=== PATIENT | male | born 1975 | race Caucasian/White ===

== ENCOUNTER 2016-10-23 11:24 | Emergency (ER) | payer OTHER ==
[2016-10-23 11:38] VITALS: BP 148/82; PULSE 91; RESP 16; TEMP 97.5
--- NOTE | 2016-10-23 12:04 | XR ---
EXAMINATION TYPE: XR ankle complete RT DATE OF EXAM: 10/23/2016 12:00 PM CLINICAL HISTORY: Right ankle pain after injury. TECHNIQUE: Frontal, lateral and oblique images of the right ankle are obtained. COMPARISON: None. FINDINGS: There is no acute fracture/dislocation evident in the right ankle. There is mild spurring at medial and lateral malleolus. Some well-defined ossific fragmentation from anterior distal tibia suggests old trauma. There is some spurring at the anterior talus. There is small size inferior calca benito spur. Ankle mortise symmetry is maintained. There is soft tissue calcification posteriorly of un certain etiology may be related to old trauma. Mild diffuse soft tissue swelling is seen. IMPRESSION: There is no acute fracture or dislocation in the right ankle.
--- NOTE | 2016-10-23 12:20 | ED ---
Lower Extremity Injury HPI - General Chief Complaint: Extremity Injury, Lower Stated Complaint: ankle pain Time Seen by Provider: 10/23/16 11:41 Source: patient, RN notes reviewed Mode of arrival: ambulatory Limitations: no limitations - History of Present Illness Initial Comments: 41-year-old male presents emergency Department with chief complaint of right ankle injury. Patient injured twice last few days. Patient states initially patient should address on the wall. Second he twisted it. He states he has lateral right ankle pain. Patient has a 4 pain or any pain proximal to this. - Related Data Home Medications Medication Instructions Recorded Confirmed Lisinopril [Lisinopril] 40 mg PO DAILY 05/26/16 10/23/16 Albuterol Inhaler [Ventolin Hfa 2 puff INHALATION RT-Q6H PRN 07/30/16 10/23/16 Inhaler] Previous Rx's Medication Instructions Recorded Hydrocodone/Acetaminophen [[place] 1 tab PO Q6HR PRN #10 tab 10/23/16 5-325] Ibuprofen [Motrin] 600 mg PO Q8HR PRN #30 tab 10/23/16 Allergies Allergy/AdvReac Type Severity Reaction Status Date / Time amoxicillin Allergy Anaphylaxis Verified 10/23/16 11:52 ciprofloxacin [From Cipro] Allergy Anaphylaxis Verified 10/23/16 11:52 haloperidol Allergy Anaphylaxis Verified 10/23/16 11:52 ziprasidone Allergy Unknown Verified 10/23/16 11:52 Review of Systems ROS Statement: Those systems with pertinent positive or pertinent negative responses have been documented in the HPI. ROS Other: All systems not noted in ROS Statement are negative. Past Medical History Past Medical History: Asthma, Hypertension Additional Past Medical History / Comment(s): chronic back and neck pain History of Any Multi-Drug Resistant Organisms: None Reported Past Surgical History: Back Surgery Additional Past Surgical History / Comment(s): cervical fusion, DECOMPRESSION, TOOTH EXTRACTION Past Anesthesia/Blood Transfusion Reactions: No Reported Reaction Past Psychological History: Anxiety, Depression, PTSD Additional Psychological History / Comment(s): STATES GOING TO BEGIN INTAKE PROCESS WITH [facility], NOT CURRENTLY TAKING ANY MEDS Smoking Status: Former smoker Past Alcohol Use History: Occasional Additional Past Alcohol Use History / Comment(s): Pt stated he used alcohol to manage mental health symptoms. Past Drug Use History: None Reported Additional Drug Use History / Comment(s): Denies. General Exam Limitations: no limitations General appearance: alert, in no apparent distress Head exam: Present: atraumatic, normocephalic, normal inspection Respiratory exam: Present: normal lung sounds bilaterally. Absent: respiratory distress, wheezes, rales, rhonchi, stridor Cardiovascular Exam: Present: regular rate, normal rhythm, normal heart sounds. Absent: systolic murmur, diastolic murmur, rubs, gallop, clicks Extremities exam: Present: other (Right ankle lateral tenderness over the malleolus moderate swelling neurovascular intact no foot tenderness) Skin exam: Present: warm, dry, intact, normal color. Absent: rash Course Vital Signs 10/23/16 11:35 Temperature 97.5 F L Pulse Rate 91 Respiratory 16 Rate Blood Pressure 148/82 O2 Sat by Pulse 97 Oximetry Medical Decision Making - Medical Decision Making Patient is right ankle sprain. Patient will be discharged patient will be discharged with ibuprofen, she tablets of [place]. Return parameters discussed. Disposition Clinical Impression: Right ankle sprain Disposition: HOME SELF-CARE Condition: Stable Instructions: Ankle Sprain (ED) Additional Instructions: Please return to the Emergency Department if symptoms worsen or any other concerns. Prescriptions: Hydrocodone/Acetaminophen [[place] 5-325] 1 tab PO Q6HR PRN #10 tab PRN Reason: Pain Ibuprofen [Motrin] 600 mg PO Q8HR PRN #30 tab PRN Reason: Pain Referrals: Valery Russell MD [Primary Care Provider] - 1-2 days Time of Disposition: 12:19
== END 2016-10-23 12:31 | disposition home or self-care (01) ==
LOC: EC 11:24
DX: S93.401A Sprain of unspecified ligament of right ankle, initial encounter (principal); I10 Essential (primary) hypertension; Z88.0 Allergy status to penicillin; Z88.1 Allergy status to other antibiotic agents; Z88.8 Allergy status to other drugs, medicaments and biological substances; Z87.891 Personal history of nicotine dependence; Z79.899 Other long term (current) drug therapy; X50.1XXA Overexertion from prolonged static or awkward postures, initial encounter
CPT/HCPCS: 99283

== ENCOUNTER 2016-10-27 09:57 | Emergency (ER) | payer OTHER ==
[2016-10-27 10:03] VITALS: BP 147/79; PULSE 90; RESP 18; TEMP 98
--- NOTE | 2016-10-27 10:19 | ED ---
Lower Extremity Injury HPI - General Chief Complaint: Extremity Injury, Lower Stated Complaint: Ankle pain Time Seen by Provider: 10/27/16 10:05 Source: patient, RN notes reviewed Mode of arrival: ambulatory Limitations: no limitations - History of Present Illness Initial Comments: Patient is a 41-year-old male presents emergency room for evaluation of right ankle pain. Patient was here on 10/23/16 for the same issue. Patient states that he twisted his ankle and came here and was diagnosed with an ankle sprain. Patient states the x-ray didn't show any breaks. Patient states they didn't have any ankle splints here so he is written a prescription. Patient states he went to go get the splint but could not afford it so he didn't end up having a brace on his ankle. Patient states that he was unable to get a ride to follow- up with his primary care provider so he came here. Patient states she still having pain in his right ankle. Patient states that he ran out of his [place] and wants something more for pain. Patient denies any numbness or tingling in his toes. Patient denies calf pain. Patient states he's been keeping weight off of his ankle. Patient denies any new injuries. - Related Data Home Medications Medication Instructions Recorded Confirmed Lisinopril [Lisinopril] 40 mg PO DAILY 05/26/16 10/27/16 Previous Rx's Medication Instructions Recorded Hydrocodone/Acetaminophen [[place] 1 tab PO Q6HR PRN #10 tab 10/23/16 5-325] Ibuprofen [Motrin] 600 mg PO Q8HR PRN #30 tab 10/23/16 Allergies Allergy/AdvReac Type Severity Reaction Status Date / Time amoxicillin Allergy Anaphylaxis Verified 10/27/16 10:21 ciprofloxacin [From Cipro] Allergy Anaphylaxis Verified 10/27/16 10:21 haloperidol Allergy Anaphylaxis Verified 10/27/16 10:21 ziprasidone Allergy Unknown Verified 10/27/16 10:21 Review of Systems ROS Statement: Those systems with pertinent positive or pertinent negative responses have been documented in the HPI. ROS Other: All systems not noted in ROS Statement are negative. Past Medical History Past Medical History: Asthma, Hypertension Additional Past Medical History / Comment(s): chronic back and neck pain History of Any Multi-Drug Resistant Organisms: None Reported Past Surgical History: Back Surgery Additional Past Surgical History / Comment(s): cervical fusion, DECOMPRESSION, TOOTH EXTRACTION Past Anesthesia/Blood Transfusion Reactions: No Reported Reaction Past Psychological History: Anxiety, Depression, PTSD Additional Psychological History / Comment(s): STATES GOING TO BEGIN INTAKE PROCESS WITH [facility], NOT CURRENTLY TAKING ANY MEDS Smoking Status: Former smoker Past Alcohol Use History: Occasional Additional Past Alcohol Use History / Comment(s): Pt stated he used alcohol to manage mental health symptoms. Past Drug Use History: None Reported Additional Drug Use History / Comment(s): Denies. General Exam - General Exam Comments Initial Comments: Sitting in exam room in no acute distress. Limitations: no limitations General appearance: alert, in no apparent distress Head exam: Present: atraumatic, normocephalic, normal inspection Eye exam: Present: normal appearance ENT exam: Present: normal exam Neck exam: Present: normal inspection Respiratory exam: Present: normal lung sounds bilaterally. Absent: respiratory distress Cardiovascular Exam: Present: regular rate, normal rhythm, normal heart sounds Right Lower Leg exam: Absent: Homans' sign Ankle exam: Present: tenderness (Lateral malleolus), swelling (Lateral malleolus ) Foot/Toe exam: Absent: tenderness Neurovascular tendon exam: Absent: pulse deficit (2+ dorsal pedal and posterior tibial pulses), abnormal cap refill (Capillary refill less than 2 seconds) Back exam: Present: normal inspection Neurological exam: Present: alert, oriented X3, CN II-XII intact Psychiatric exam: Present: normal affect, normal mood Skin exam: Present: warm, dry, intact, normal color. Absent: rash Course Vital Signs 10/27/16 10:00 Temperature 98.0 F Pulse Rate 90 Respiratory 18 Rate Blood Pressure 147/79 O2 Sat by Pulse 97 Oximetry Procedures - Orthopedic Splinting/Casting Injury #1 Side: right Lower Extremity Injury Location: ankle Lower Extremity Immobilizer: Jian wrap Other Orthopedic Equipment: crutches Medical Decision Making - Medical Decision Making Patient is a 41-year-old male presents emergency room for evaluation of right ankle pain. Patient diagnosed with ankle sprain on 10/23/16. X-ray reviewed. No fractures or dislocations noted. Patient was given an Jian wrap. Patient was also written a prescription for crutches. Discussed with patient he can take ibuprofen as needed for pain that I would not be writing him for more [place]. Discussed with patient that he needs follow-up with his primary care provider for further pain medications. Return parameters discussed. Case discussed with Dr. Cunha. - Radiology Data Radiology results: report reviewed, image reviewed Disposition Clinical Impression: Right ankle sprain Disposition: HOME SELF-CARE Condition: Good Instructions: Ankle Sprain (ED) Additional Instructions: Rest, elevate and ice on and off for 10-15 minutes for the next 24-48 hours. Take ibuprofen as needed for pain. Please follow-up with process improvement specialist or primary care provider in 24-48 hours for reevaluation. If new symptoms develop or symptoms worsen, please return to the ER. Referrals: Valery Russell MD [Primary Care Provider] - 1-2 days Time of Disposition: 10:28
== END 2016-10-27 10:56 | disposition home or self-care (01) ==
LOC: EC 09:57
DX: S93.401D Sprain of unspecified ligament of right ankle, subsequent encounter (principal); I10 Essential (primary) hypertension; G89.29 Other chronic pain; Z87.891 Personal history of nicotine dependence; Z79.899 Other long term (current) drug therapy; Z88.0 Allergy status to penicillin; Z88.1 Allergy status to other antibiotic agents; Z88.8 Allergy status to other drugs, medicaments and biological substances; X50.1XXD Overexertion from prolonged static or awkward postures, subsequent encounter
CPT/HCPCS: 99283

== ENCOUNTER 2016-11-19 18:39 | Emergency (ER) | payer OTHER ==
[~2016-11-19 18:39] MED LIST: THIAMINE 100 MG TAB PO SCH
[2016-11-19] MEDS ORDERED: LORazepam 1 MG TAB PO STA (19:38)
[2016-11-19] MEDS ORDERED: LORazepam 2 MG/ML SYRINGE IV PRN ×3 (19:38)
[2016-11-19] MEDS ORDERED: THIAMINE 100 MG/ML 2 ML VIAL IM STA (19:38)
--- NOTE | 2016-11-19 19:40 | ED ---
General Adult HPI - General Source: patient, RN notes reviewed Mode of arrival: ambulatory Limitations: no limitations <Shayne Patricia - Last Filed: 11/19/16 19:44> <Rohit Lindo - Last Filed: 11/20/16 06:30> <Asim Alcala - Last Filed: 11/29/16 14:01> - General Chief complaint: Psychiatric Symptoms Stated complaint: overdose, suicidal Time Seen by Provider: 11/19/16 19:38 - History of Present Illness Initial comments: Patient 41-year-old male who presents emergency room today with a chief complaint of suicidal ideation. Patient was brought in by [facility]. Patient does admit that he is having thoughts of hurting himself. Patient denies any specific plan at this time. He does admit that he seen a therapist or counselor in the past. She states she's been admitted in the past. He denies any homicidal thoughts or plans. Patient does admit that he did take Locust earlier in the day. States he has been drinking. Does admit to being a daily drinker. 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 Patient denies any recent fever, chills, shortness of breath, chest pain, back pain, abdominal pain, nausea or vomiting, numbness or tingling, dysuria or hematuria, constipation or diarrhea, headaches or visual changes, or any other complaints. (Shayne Patricia) - Related Data Home Medications Medication Instructions Recorded Confirmed Lisinopril [Lisinopril] 40 mg PO DAILY 05/26/16 11/19/16 Allergies Allergy/AdvReac Type Severity Reaction Status Date / Time amoxicillin Allergy Anaphylaxis Verified 11/19/16 20:08 ciprofloxacin [From Cipro] Allergy Anaphylaxis Verified 11/19/16 20:08 haloperidol Allergy Anaphylaxis Verified 11/19/16 20:08 ziprasidone Allergy Unknown Verified 11/19/16 20:08 Review of Systems ROS Other: All systems not noted in ROS Statement are negative. <Shayne Patricia - Last Filed: 11/19/16 19:44> ROS Other: All systems not noted in ROS Statement are negative. <Rohit Lindo - Last Filed: 11/20/16 06:30> ROS Other: All systems not noted in ROS Statement are negative. <Asim Alcala - Last Filed: 04/30/17 14:01> ROS Statement: Those systems with pertinent positive or pertinent negative responses have been documented in the HPI. Past Medical History Past Medical History: Asthma, Hypertension Additional Past Medical History / Comment(s): chronic back and neck pain History of Any Multi-Drug Resistant Organisms: None Reported Past Surgical History: Back Surgery Additional Past Surgical History / Comment(s): cervical fusion, DECOMPRESSION, TOOTH EXTRACTION Past Anesthesia/Blood Transfusion Reactions: No Reported Reaction Past Psychological History: Anxiety, Depression, PTSD Additional Psychological History / Comment(s): STATES GOING TO BEGIN INTAKE PROCESS WITH [facility], NOT CURRENTLY TAKING ANY MEDS Smoking Status: Former smoker Past Alcohol Use History: Occasional Additional Past Alcohol Use History / Comment(s): Pt stated he used alcohol to manage mental health symptoms. Past Drug Use History: Prescription Drug Abuse Additional Drug Use History / Comment(s): Denies. <Shayne Patricia - Last Filed: 11/19/16 19:44> General Exam Limitations: no limitations <Shayne Patricia - Last Filed: 11/19/16 19:44> <Rohit Lindo - Last Filed: 11/20/16 06:30> <Asim Alcala - Last Filed: 11/29/16 14:01> - General Exam Comments Initial Comments: General: The patient is awake and alert, in no distress, and does not appear acutely ill. Eye: Pupils are equal, round and reactive to light, extra-ocular movements are intact. No nystagmus. There is normal conjunctiva bilaterally. No signs of icterus. Ears, nose, mouth and throat: There are moist mucous membranes and no oral lesions. Neck: The neck is supple, there is no tenderness or JVD. Cardiovascular: There is a regular rate and rhythm. No murmur, rub or gallop is appreciated. Respiratory: Lungs are clear to auscultation, respirations are non-labored, breath sounds are equal. No wheezes, stridor, rales, or rhonchi. Musculoskeletal: Normal ROM, no tenderness. Strength 5/5. Sensation intact. Pulses equal bilaterally 2+. Neurological: A&O x 3. CN II-XII intact, There are no obvious motor or sensory deficits. Coordination appears grossly intact. Speech is normal. Skin: Skin is warm and dry and no rashes or lesions are noted. Psychiatric: Cooperative. (Shayne Patricia) Course <Shayne Patricia - Last Filed: 11/19/16 19:44> <Rohit Lindo - Last Filed: 11/20/16 06:30> <Asim Alcala - Last Filed: 11/29/16 14:01> Vital Signs 11/19/16 11/20/16 11/20/16 18:42 05:50 07:57 Temperature 99.1 F 98.2 F Pulse Rate 120 H 96 98 Respiratory 20 18 18 Rate Blood Pressure 147/91 167/74 163/87 O2 Sat by Pulse 97 95 100 Oximetry - Reevaluation(s) Reevaluation #1: 11/19/16 19:44 Patient's labs currently pending. At this time patient cooperative. Patient will be started on CIWA scale. Labs currently pending. Case discussed and signed out physician Dr. Lindo. (Shayne Patricia) Reevaluation #2: 11/19/16 23:14 The patient did complain of right ankle pain and some numbness to the right foot he states he rolled his ankle recently. He complains of pain especially the lateral aspect. X-rays are negative the presentation is consistent with a sprain. (Rohit Lindo) Reevaluation #3: 11/20/16 02:54 The patient was evaluated by psychiatric service and disposition is pending I did fill out a clinical certification. (Rohit Lindo) Reevaluation #4: 11/20/16 06:30 The patient is pending possible transfer. His care will be endorsed to Dr. Alcala who will make the final disposition. (Rohit Lindo) Medical Decision Making - Lab Data Result diagrams: 11/19/16 20:21 11/19/16 20:21 - Radiology Data Radiology results: report reviewed (I did review the x-rays and reports no acute findings there is some evidence of soft tissue swelling of the right ankle.), image reviewed <Rohit Lindo - Last Filed: 11/20/16 06:30> - Lab Data Result diagrams: 11/19/16 20:21 11/19/16 20:21 <Asim Alcala - Last Filed: 11/29/16 14:01> - Lab Data Lab Results 11/19/16 11/19/16 11/19/16 Range/Units 20:21 20:21 20:21 WBC 5.3 (3.8-10.6) k/uL RBC 5.61 (4.30-5.90) m/uL Hgb 16.6 (13.0-17.5) gm/dL Hct 46.7 (39.0-53.0) % MCV 83.3 (80.0-100.0) fL MCH 29.6 (25.0-35.0) pg MCHC 35.6 (31.0-37.0) g/dL RDW 13.5 (11.5-15.5) % Plt Count 240 (150-450) k/uL Neutrophils % 62 % Lymphocytes % 29 % Monocytes % 7 % Eosinophils % 1 % Basophils % 0 % Neutrophils # 3.3 (1.3-7.7) k/uL Lymphocytes # 1.5 (1.0-4.8) k/uL Monocytes # 0.4 (0-1.0) k/uL Eosinophils # 0.1 (0-0.7) k/uL Basophils # 0.0 (0-0.2) k/uL Sodium 144 (137-145) mmol/L Potassium 4.4 (3.5-5.1) mmol/L Chloride 105 (98-107) mmol/L Carbon Dioxide 24 (22-30) mmol/L Anion Gap 15 mmol/L BUN 9 (9-20) mg/dL Creatinine 0.99 (0.66-1.25) mg/dL Est GFR (MDRD) Af Amer >60 (>60 ml/min/1.73 sqM) Est GFR (MDRD) Non-Af >60 (>60 ml/min/1.73 sqM) Glucose 101 H (74-99) mg/dL Calcium 9.6 (8.4-10.2) mg/dL Salicylates <1.0 mg/dL Urine Opiates Screen Not Detected (NotDetected) Ur Oxycodone Screen Not Detected (NotDetected) Urine Methadone Screen Not Detected (NotDetected) Ur Propoxyphene Screen Not Detected (NotDetected) Acetaminophen <10.0 ug/mL Ur Barbiturates Screen Not Detected (NotDetected) U Tricyclic Antidepress Not Detected (NotDetected) Ur Phencyclidine Scrn Not Detected (NotDetected) Ur Amphetamines Screen Not Detected (NotDetected) U Methamphetamines Scrn Not Detected (NotDetected) U Benzodiazepines Scrn Not Detected (NotDetected) Urine Cocaine Screen Not Detected (NotDetected) U Marijuana (THC) Screen Detected H (NotDetected) Disposition <Shayne Patricia - Last Filed: 11/19/16 19:44> <Rohit Lindo - Last Filed: 11/20/16 06:30> <Asim Alcala - Last Filed: 11/29/16 14:01> Clinical Impression: Depression, Right ankle sprain Disposition: TRANSFER TO PSYCH HOSP/UNIT Referrals: Valery Russell MD [Primary Care Provider] - 1-2 days
[2016-11-19 20:42] LABS: Basophils % (A) 0 %; CH 29.4; CHCM 35.4; Eosinophils # (A) 0.1 k/uL (0-0.7); Eosinophils % (A) 1 %; HCT 46.7 % (39.0-53.0); HDW 2.92; HGB 16.6 gm/dL (13.0-17.5); Luc # (Auto) 0.11; Luc % (Auto) 2; Lymphocytes # (A) 1.5 k/uL (1.0-4.8); Lymphocytes % (A) 29 %; MCH 29.6 pg (25.0-35.0); MCHC 35.6 g/dL (31.0-37.0); MCV 83.3 fL (80.0-100.0); Mean Platelet Volume 6.8; Monocytes # (A) 0.4 k/uL (0-1.0); Monocytes % (A) 7 %; Neutrophils # (A) 3.3 k/uL (1.3-7.7); Neutrophils % (A) 62 %; RBC 5.61 m/uL (4.30-5.90); RDW 13.5 % (11.5-15.5); WBC 5.3 k/uL (3.8-10.6); WBC (Perox) 5.37
[2016-11-19 20:43] LABS: Acetaminophen <10.0 ug/mL; Anion Gap 15 mmol/L; Blood Urea Nitrogen 9 mg/dL (9-20); Calcium 9.6 mg/dL (8.4-10.2); Carbon Dioxide 24 mmol/L (22-30); Chloride 105 mmol/L (98-107); Glucose 101 mg/dL (74-99); Non-African American GFR(MDRD) >60 (>60 ml/min/1.73 sqM); Potassium 4.4 mmol/L (3.5-5.1); Salicylate <1.0 mg/dL; Sodium 144 mmol/L (137-145)
--- NOTE | 2016-11-19 23:07 | XR ---
EXAMINATION TYPE: XR foot complete RT DATE OF EXAM: 11/19/2016 10:59 PM COMPARISON: NONE HISTORY: Pain TECHNIQUE: 3 views FINDINGS: There is a small plantar calcaneal spur. There is mild hallux valgus. Metatarsals are intac t. I see no fracture. IMPRESSION: There are some degenerative changes. No fracture seen.
--- NOTE | 2016-11-19 23:07 | XR ---
EXAMINATION TYPE: XR ankle complete RT DATE OF EXAM: 11/19/2016 10:59 PM COMPARISON: NONE HISTORY: Pain TECHNIQUE: 3 views FINDINGS: I see no fracture nor dislocation. There is spurring of the anterior malleolus. There is a plantar calcaneal spur. There is mild soft tissue swelling around the ankle joint. IMPRESSION: Soft tissue swelling. No fracture seen.
[2016-11-20] MEDS ORDERED: ONDANSETRON ODT 4 MG TAB PO STA (02:23)
[2016-11-20 05:51] VITALS: RESP 18
[2016-11-20] MEDS ORDERED: IBUPROFEN 800 MG TAB PO STA (05:56)
[2016-11-20 07:59] VITALS: BP 163/87; PULSE 98; TEMP 98.2
[2016-11-20] MEDS ORDERED: MECLIZINE 12.5 MG TAB PO STA (08:51)
[2016-11-20] MEDS ORDERED: THIAMINE 100 MG TAB PO SCH (12:00)
== END 2016-11-20 08:55 | disposition home or self-care (01) ==
LOC: EC 18:39
DX: S93.401A Sprain of unspecified ligament of right ankle, initial encounter (principal); F32.9 Major depressive disorder, single episode, unspecified; I10 Essential (primary) hypertension; Z88.1 Allergy status to other antibiotic agents; Z88.0 Allergy status to penicillin; Z88.8 Allergy status to other drugs, medicaments and biological substances; Z87.891 Personal history of nicotine dependence; X58.XXXA Exposure to other specified factors, initial encounter
CPT/HCPCS: 99285; 96372; 82075 ×2; 36415; 80048; 85025; 80306; 83520 ×2; 73610; 73630; J3411

== ENCOUNTER → 2017-01-15 | Outpatient (CLI) | payer OTHER ==
--- NOTE | 2017-01-15 08:13 | US ---
EXAMINATION TYPE: US kidneys/renal and bladder DATE OF EXAM: 01/15/2017 COMPARISON: Ultrasound 10/26/14 CLINICAL HISTORY: R31.9 HEMATURIA. Pt states microscopic hematuria EXAM MEASUREMENTS: Right Kidney: 12.0 x 5.9 x 6.8 cm Left Kidney: 12.4 x 6.2 x 5.6 cm Right Kidney: Appeared wnl Left Kidney: Appeared wnl Bladder: wnl Bilateral Jets seen: No There is no evidence for hydronephrosis at this point in time. No nephrolithiasis is seen. No lena s are identified. The urinary bladder is anechoic. IMPRESSION: 1. Normal renal ultrasound
== END | disposition home or self-care (01) ==
LOC: RADUSWWP 07:14
PROVIDERS: ATTEND Family Medicine
DX: R31.9 Hematuria, unspecified (principal)
CPT/HCPCS: 76770

== ENCOUNTER 2017-03-11 08:56 | Emergency (ER) | payer OTHER ==
[2017-03-11] MEDS ORDERED: IBUPROFEN 600 MG TAB PO STA (09:14)
--- NOTE | 2017-03-11 09:39 | ED ---
General Adult HPI - General Chief complaint: ENT Stated complaint: sore throat and left ear pain Time Seen by Provider: 03/11/17 09:06 Source: patient, RN notes reviewed Mode of arrival: ambulatory Limitations: no limitations - History of Present Illness Initial comments: Patient 41-year-old male who presents emergency room today with a chief complaint of a sore throat over the last 4 days. States that it started as typical sore throat and hurts when he swallows. He does admit that over the last days he had increased pain to the left year. Patient denies any other complaints or symptoms. Patient denies any recent fever, chills, shortness of breath, chest pain, back pain, abdominal pain, nausea or vomiting, numbness or tingling, dysuria or hematuria, constipation or diarrhea, headaches or visual changes, or any other complaints. - Related Data Home Medications Medication Instructions Recorded Confirmed Lisinopril [Lisinopril] 40 mg PO DAILY 05/26/16 03/11/17 OXcarbazepine [Trileptal] 300 mg PO BID 03/11/17 03/11/17 hydrOXYzine PAMOATE [Vistaril] 25 mg PO TID 03/11/17 03/11/17 traZODone HCL [Desyrel] 100 mg PO HS PRN 03/11/17 03/11/17 Allergies Allergy/AdvReac Type Severity Reaction Status Date / Time amoxicillin Allergy Anaphylaxis Verified 03/11/17 09:30 ciprofloxacin [From Cipro] Allergy Anaphylaxis Verified 03/11/17 09:30 haloperidol Allergy Anaphylaxis Verified 03/11/17 09:30 ziprasidone Allergy Unknown Verified 03/11/17 09:30 Review of Systems ROS Statement: Those systems with pertinent positive or pertinent negative responses have been documented in the HPI. ROS Other: All systems not noted in ROS Statement are negative. Past Medical History Past Medical History: Asthma, Hypertension Additional Past Medical History / Comment(s): chronic back and neck pain History of Any Multi-Drug Resistant Organisms: None Reported Past Surgical History: Back Surgery Additional Past Surgical History / Comment(s): cervical fusion, DECOMPRESSION, TOOTH EXTRACTION Past Anesthesia/Blood Transfusion Reactions: No Reported Reaction Past Psychological History: Anxiety, Depression, PTSD Smoking Status: Former smoker Past Alcohol Use History: Occasional Past Drug Use History: Prescription Drug Abuse General Exam - General Exam Comments Initial Comments: General: The patient is awake and alert, in no distress, and does not appear acutely ill. Eye: Pupils are equal, round and reactive to light, extra-ocular movements are intact. No nystagmus. There is normal conjunctiva bilaterally. No signs of icterus. Ears, nose, mouth and throat: There are moist mucous membranes and no oral lesions. TMs clear bilaterally. Increased redness erythema to the posterior pharynx no sign of exudate. Uvula midline. Patient swallows without any difficulty. Neck: The neck is supple, there is no tenderness or JVD. Cardiovascular: There is a regular rate and rhythm. No murmur, rub or gallop is appreciated. Respiratory: Lungs are clear to auscultation, respirations are non-labored, breath sounds are equal. No wheezes, stridor, rales, or rhonchi. Musculoskeletal: Normal ROM, no tenderness. Strength 5/5. Sensation intact. Pulses equal bilaterally 2+. Neurological: A&O x 3. CN II-XII intact, There are no obvious motor or sensory deficits. Coordination appears grossly intact. Speech is normal. Skin: Skin is warm and dry and no rashes or lesions are noted. Psychiatric: Cooperative, appropriate mood & affect, normal judgment. Limitations: no limitations Course Vital Signs 03/11/17 09:01 Temperature 97.6 F Pulse Rate 103 H Respiratory 20 Rate Blood Pressure 168/98 O2 Sat by Pulse 97 Oximetry Medical Decision Making - Medical Decision Making Patient reexamined at this time shows no signs of distress. Resting comfortably in the stretcher. Strep test negative.. Patient most likely a viral illness. Will be discharged home advised continue Tylenol/ibuprofen for pain as needed. Advised to use [id number] medications. Advised return for any other concerns. - Lab Data Lab Results 03/11/17 Range/Units 09:35 Group A Strep Rapid Negative (Negative) Disposition Clinical Impression: Acute pharyngitis Disposition: HOME SELF-CARE Condition: Good Instructions: Pharyngitis (ED) Additional Instructions: Please use medication as discussed. Please follow-up with family doctor in the next 2 days of symptoms have not improved. Please return to emergency room if the symptoms increase or worsen or for any other concerns. Referrals: Valery Russell MD [Primary Care Provider] - 1-2 days Time of Disposition: 10:32
[2017-03-11 10:51] VITALS: BP 141/74; PULSE 83; RESP 18; TEMP 98.6
== END 2017-03-11 10:51 | disposition home or self-care (01) ==
LOC: EC 08:56
DX: J02.9 Acute pharyngitis, unspecified (principal); H92.02 Otalgia, left ear; I10 Essential (primary) hypertension; F41.9 Anxiety disorder, unspecified; Z87.891 Personal history of nicotine dependence; Z79.899 Other long term (current) drug therapy; Z88.0 Allergy status to penicillin; Z88.1 Allergy status to other antibiotic agents; Z88.8 Allergy status to other drugs, medicaments and biological substances
CPT/HCPCS: 87081; 87430; 99283

== ENCOUNTER 2017-08-17 20:33 | Emergency (ER) | payer OTHER ==
[2017-08-17] MEDS ORDERED: SODIUM CHLORIDE 0.9% 1,000 ML IV ONE (20:45)
[2017-08-17 20:47] VITALS: TEMP 97.4
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
[2017-08-17 21:04] LABS: Basophils % (A) 1 %; Eosinophils # (A) 0.1 k/uL (0-0.7); Eosinophils % (A) 1 %; HCT 48.3 % (39.0-53.0); HGB 17.1 gm/dL (13.0-17.5); Lymphocytes # (A) 1.5 k/uL (1.0-4.8); Lymphocytes % (A) 31 %; MCH 29.5 pg (25.0-35.0); MCHC 35.5 g/dL (31.0-37.0); MCV 83.1 fL (80.0-100.0); Mean Platelet Volume 6.9; Monocytes # (A) 0.2 k/uL (0-1.0); Monocytes % (A) 4 %; Neutrophils % (A) 61 %; Platelet Count 286 k/uL (150-450); RBC 5.81 m/uL (4.30-5.90); RDW 13.6 % (11.5-15.5); WBC 4.9 k/uL (3.8-10.6)
[2017-08-17 21:09] LABS: ALT 43 U/L (21-72); AST 36 U/L (17-59); Albumin 5.4 g/dL (3.5-5.0); Alkaline Phosphatase 52 U/L (38-126); Anion Gap 20 mmol/L; Blood Urea Nitrogen 11 mg/dL (9-20); Calcium 10.2 mg/dL (8.4-10.2); Carbon Dioxide 20 mmol/L (22-30); Chloride 104 mmol/L (98-107); Glucose 117 mg/dL (74-99); Potassium 4.5 mmol/L (3.5-5.1); Sodium 144 mmol/L (137-145); Total Bilirubin 0.8 mg/dL (0.2-1.3); Total Protein 8.5 g/dL (6.3-8.2)
[2017-08-17 21:11] LABS: Amphetamine Screen,Urine Not Detected (NotDetected); Barbiturate Screen,Urine Not Detected (NotDetected); Benzodiazepines Screen,Urine Not Detected (NotDetected); Cocaine Screen,Urine Not Detected (NotDetected); Methadone Screen, Urine Not Detected (NotDetected); Opiate Screen,Urine Not Detected (NotDetected); Oxycodone Screen, Urine Not Detected (NotDetected); Phencyclidine Screen,Urine Not Detected (NotDetected); Tricyclic Antidepressant,Urine Not Detected (NotDetected); Urn Cannabinoid Scrn Not Detected (NotDetected)
--- NOTE | 2017-08-17 21:37 | CT ---
EXAMINATION TYPE: CT brain mahogany zhong DATE OF EXAM: 08/17/2017 COMPARISON: 08/14/2015 HISTORY: Possible fall injury. CT DLP: 1717.9 mGycm Automated exposure control for dose reduction was used. TECHNIQUE: CT scan of the head and cervical spine are performed without contrast. FINDINGS: Ventricles and sulci appear normal. There is no mass effect nor midline shift. There is n o sign of intracranial hemorrhage. The calvarium is intact. There is straightening of the cervical spine. There is a plate with screws fusing anteriorly C4-C5 C6 -C7. Posterior elements are intact. There is multilevel hypertrophic facet arthropathy. The skull bas e is intact. IMPRESSION: Negative CT scan of the brain. No change. Previous surgery. Multilevel cervical spondylosis. No fracture. No change.
[2017-08-17 21:44] VITALS: RESP 20
--- NOTE | 2017-08-17 21:44 | XR ---
EXAMINATION TYPE: XR chest 1V DATE OF EXAM: 08/17/2017 COMPARISON: 05/15/2015 HISTORY: Fall. Chest pain TECHNIQUE: Single frontal view of the chest is obtained. FINDINGS: Heart and mediastinum are normal. Lungs are clear of infiltrate. There is no sign of pleur al effusion or pneumothorax. There is some mild pleural thickening over the left lateral chest wall. IMPRESSION: Normal heart. There is new mild pleural thickening on the left lateral chest wall of unce rtain significance. No obvious rib fracture.
[2017-08-17] MEDS ORDERED: SODIUM CHLORIDE 0.9% 1,000 ML IV STA (22:00)
[2017-08-17 22:54] VITALS: BP 140/60; PULSE 99
== END 2017-08-18 00:56 | disposition home or self-care (01) ==
LOC: EC 20:33
DX: F10.129 Alcohol abuse with intoxication, unspecified (principal); J92.9 Pleural plaque without asbestos; R06.82 Tachypnea, not elsewhere classified; M54.2 Cervicalgia; I10 Essential (primary) hypertension; Z87.891 Personal history of nicotine dependence; Z79.899 Other long term (current) drug therapy; Z88.0 Allergy status to penicillin; Z88.1 Allergy status to other antibiotic agents; Z88.8 Allergy status to other drugs, medicaments and biological substances; Z98.1 Arthrodesis status; W19.XXXA Unspecified fall, initial encounter
CPT/HCPCS: 36415; 70450; 71045; 72125; 80053; 80306; 82075; 85025; 96360; 99285

== ENCOUNTER 2017-10-08 08:18 | Emergency (ER) | payer OTHER ==
[2017-10-08 08:24] VITALS: TEMP 97.6
[2017-10-08] MEDS ORDERED: HYDROcodone/APAP 10-325MG 1 EACH TAB PO ONE (08:43)
[2017-10-08] MEDS ORDERED: cloNIDine HCL 0.2 MG TAB PO STA (08:43)
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
--- NOTE | 2017-10-08 09:18 | XR ---
EXAMINATION TYPE: XR knee 4V RT DATE OF EXAM: 10/08/2017 COMPARISON: 12/30/2014 HISTORY: Pain TECHNIQUE: Four views are submitted. FINDINGS: Joint spaces are preserved. Osseous structures are intact. No acute fracture seen. There is a smal l exostosis off the proximal diaphysis of the tibia. IMPRESSION: 1. No acute fracture or dislocation. 2. Small exostosis off the proximal diaphysis of the tibia stable from x-ray of 2014..
--- NOTE | 2017-10-08 09:19 | XR ---
EXAMINATION TYPE: XR shoulder complete RT DATE OF EXAM: 10/08/2017 COMPARISON: NONE HISTORY: Pain TECHNIQUE: Three views are submitted. FINDINGS: The osseous structures are intact. There is no acute fracture or dislocation. There is severe arthro rufino of the AC joint. IMPRESSION: 1. AC joint arthropathy.
[2017-10-08 10:16] VITALS: BP 152/87; PULSE 97; RESP 20
== END 2017-10-08 10:15 | disposition home or self-care (01) ==
LOC: EC 08:18
DX: S46.911A Strain of unspecified muscle, fascia and tendon at shoulder and upper arm level, right arm, initial encounter (principal); M25.461 Effusion, right knee; S80.01XA Contusion of right knee, initial encounter; I10 Essential (primary) hypertension; Z87.891 Personal history of nicotine dependence; Z79.899 Other long term (current) drug therapy; Z88.0 Allergy status to penicillin; Z88.1 Allergy status to other antibiotic agents; Z88.8 Allergy status to other drugs, medicaments and biological substances; M12.9 Arthropathy, unspecified; V18.4XXA Pedal cycle driver injured in noncollision transport accident in traffic accident, initial encounter; Y92.410 Unspecified street and highway as the place of occurrence of the external cause; Y93.55 Activity, bike riding
CPT/HCPCS: 99284

== ENCOUNTER → 2017-11-19 | Outpatient (CLI) | payer OTHER ==
--- NOTE | 2017-11-19 10:35 | CT ---
EXAMINATION TYPE: CT chest wo con DATE OF EXAM: 11/19/2017 COMPARISON: NONE HISTORY: Follow up nodule per patient CT DLP: [address] of the chest was performed with lung and mediastinal window settings submitted. The la ck of contrast limits evaluation of the vascular, mediastinal and parenchymal structures including th e upper abdomen. LUNGS: The lungs are clear and free of infiltrate. No atelectasis. No pulmonary nodule or mass is de tected. No pleural effusion. No CT evidence of interstitial lung disease. MEDIASTINUM/YOU: Thoracic aorta is of normal caliber with limited evaluation given lack of contrast . The heart is not enlarged. No evidence for mediastinal mass. No lymph nodes greater than 1cm. UPPER ABDOMEN: No significant abnormality is seen. OTHER: No significant other abnormality. IMPRESSION: 1. No distinct abnormality appreciated.
== END ==
LOC: RADCTMAIN 10:08
PROVIDERS: ATTEND Family Medicine
DX: R91.1 Solitary pulmonary nodule (principal)
CPT/HCPCS: 71250

== ENCOUNTER 2017-12-24 13:02 | Emergency (ER) | payer OTHER ==
[2017-12-24 13:12] VITALS: BP 146/83; PULSE 129; RESP 20; TEMP 97.6
[2017-12-24] MEDS ORDERED: DIPH,PERTUS(ACELL)TETVAC-LF 0.5 ML VIAL IM ONE (13:21)
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
[2017-12-24] MEDS ORDERED: Acetaminophen-Codeine 300-30mg TAB PO STA (13:42)
--- NOTE | 2017-12-24 14:07 | XR ---
EXAMINATION TYPE: XR chest 1V portable DATE OF EXAM: 12/24/2017 COMPARISON: 08/17/2017 HISTORY: Chest pain TECHNIQUE: Single frontal view of the chest is obtained. FINDINGS: There is no focal air space opacity, pleural effusion, or pneumothorax seen. The cardia m ediastinal silhouette is enlarged. Partial visualization of cervical fusion device is seen. The osse ous structures are intact. IMPRESSION: No acute cardiopulmonary process.
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
--- NOTE | 2017-12-27 06:06 | CDI ---
Documentation Clarification OP Dear Asim Duke Please provide type of splint. Thank you, Christel Ballesteros Boarding House Manager If you have any questions, please contact [employer] at [phone] [facility]
== END 2017-12-24 14:19 | disposition home or self-care (01) ==
LOC: EC 13:02
DX: S52.121A Displaced fracture of head of right radius, initial encounter for closed fracture (principal); S80.811A Abrasion, right lower leg, initial encounter; S80.812A Abrasion, left lower leg, initial encounter; I10 Essential (primary) hypertension; Z87.891 Personal history of nicotine dependence; Z79.899 Other long term (current) drug therapy; Z88.0 Allergy status to penicillin; Z88.1 Allergy status to other antibiotic agents; Z88.8 Allergy status to other drugs, medicaments and biological substances; Z23 Encounter for immunization; V18.4XXA Pedal cycle driver injured in noncollision transport accident in traffic accident, initial encounter; Y92.480 Sidewalk as the place of occurrence of the external cause
CPT/HCPCS: 29105; 71045; 72170; 90471; 90715; 99283

== ENCOUNTER 2018-09-23 08:41 | Emergency (ER) | payer OTHER ==
[2018-09-23] MEDS ORDERED: ONDANSETRON 4 MG/2 ML VIAL IVP STA (08:58)
[2018-09-23] MEDS ORDERED: SODIUM CHLORIDE 0.9% 1,000 ML IV STA (08:58)
[2018-09-23] MEDS ORDERED: KETOROLAC 30 MG/ML 1 ML VIAL IVP STA (08:58)
--- NOTE | 2018-09-23 09:01 | ED ---
General Adult HPI - General Chief complaint: Abdominal Pain Stated complaint: L side pain Time Seen by Provider: 09/23/18 08:43 Source: patient, RN notes reviewed Mode of arrival: ambulatory Limitations: no limitations - History of Present Illness Initial comments: 43-year-old male with a past medical history of asthma, hypertension, chronic back pain presents to the emergency department for a chief complaint of left flank pain times one day. Patient states this pain started yesterday. He describes the pain as a sharp stabbing pain in the left flank that radiates to the left abdomen. Patient states he saw his primary care provider about a week ago and did have blood in his urine at that time. Patient denies noticing any gross hematuria. Patient does admit to a history of kidney stones when he was a teenager. He states he has not had kidney stones since then. He denies nausea or vomiting.Patient has no other complaints at this time including shortness of breath, chest pain, abdominal pain, nausea or vomiting, headache, or visual changes. - Related Data Home Medications Medication Instructions Recorded Confirmed Lisinopril 40 mg PO DAILY 05/26/16 09/23/18 Ibuprofen [Motrin Ib] 800 mg PO Q6H PRN 09/23/18 09/23/18 Allergies Allergy/AdvReac Type Severity Reaction Status Date / Time amoxicillin Allergy Anaphylaxis Verified 09/23/18 09:48 ciprofloxacin [From Cipro] Allergy Anaphylaxis Verified 09/23/18 09:48 haloperidol Allergy Anaphylaxis Verified 09/23/18 09:48 ziprasidone Allergy Unknown Verified 09/23/18 09:48 Review of Systems ROS Statement: Those systems with pertinent positive or pertinent negative responses have been documented in the HPI. ROS Other: All systems not noted in ROS Statement are negative. Past Medical History Past Medical History: Asthma, Hypertension Additional Past Medical History / Comment(s): chronic back and neck pain History of Any Multi-Drug Resistant Organisms: None Reported Past Surgical History: Back Surgery Additional Past Surgical History / Comment(s): cervical fusion, DECOMPRESSION, TOOTH EXTRACTION Past Anesthesia/Blood Transfusion Reactions: No Reported Reaction Past Psychological History: Anxiety, Depression, PTSD Smoking Status: Former smoker Past Alcohol Use History: None Reported Past Drug Use History: None Reported General Exam Limitations: no limitations General appearance: alert, in no apparent distress Head exam: Present: atraumatic, normocephalic, normal inspection Eye exam: Present: normal appearance, PERRL, EOMI. Absent: scleral icterus, conjunctival injection, periorbital swelling ENT exam: Present: normal exam, mucous membranes moist Neck exam: Present: normal inspection, full ROM. Absent: tenderness, meningismus, lymphadenopathy Respiratory exam: Present: normal lung sounds bilaterally. Absent: respiratory distress, wheezes, rales, rhonchi, stridor Cardiovascular Exam: Present: regular rate, normal rhythm, normal heart sounds. Absent: systolic murmur, diastolic murmur, rubs, gallop, clicks GI/Abdominal exam: Present: soft, normal bowel sounds. Absent: distended, tenderness (No tenderness noted to the abdomen), guarding, rebound, rigid Back exam: Present: CVA tenderness (L) (Mild left CVA tenderness) Neurological exam: Present: alert, oriented X3, CN II-XII intact Psychiatric exam: Present: normal affect, normal mood Skin exam: Present: diaphoretic (Patient states pain is making him feel diaphoretic) Course Vital Signs 09/23/18 08:43 Temperature 98.2 F Pulse Rate 101 H Respiratory 18 Rate Blood Pressure 188/86 O2 Sat by Pulse 99 Oximetry EKG Findings - EKG Comments: EKG Findings:: Normal sinus rhythm, ventricular rate 92, IN interval 140, QTC 405, no evidence of ST elevation or depression. Medical Decision Making - Medical Decision Making 43-year-old male presents to the emergency department for left flank pain. This has been ongoing since yesterday. Patient does have a history of stones. CBC unremarkable. CMP does show a creatinine of 1.61 which is elevated above patient's baseline. Patient informed of this and will follow up with primary care for repeat creatinine and drink plenty of fluids. Urine does show moderate blood which patient is aware of. Therefore stone protocol was used for computed tomography scan. This shows no evidence of nephrolithiasis or hydronephrosis. No evidence of appendicitis. There is a questionable minimal bowel wall thickening of a few loops of clustered small bowel in the left mid abdomen that may relate to non-specific inflammation. However no abdominal pain whatsoever. No tenderness to the abdomen. At this time patient will follow up with primary care for elevated creatinine, flank pain, and hypertension and return here if he has any worsening symptoms. - Lab Data Result diagrams: 09/23/18 08:58 09/23/18 08:58 Lab Results 09/23/18 09/23/18 09/23/18 Range/Units 08:58 08:58 08:58 WBC 6.1 (3.8-10.6) k/uL RBC 5.82 (4.30-5.90) m/uL Hgb 17.1 (13.0-17.5) gm/dL Hct 49.5 (39.0-53.0) % MCV 85.1 (80.0-100.0) fL MCH 29.4 (25.0-35.0) pg MCHC 34.5 (31.0-37.0) g/dL RDW 13.8 (11.5-15.5) % Plt Count 274 (150-450) k/uL Neutrophils % 62 % Lymphocytes % 25 % Monocytes % 6 % Eosinophils % 5 % Basophils % 1 % Neutrophils # 3.8 (1.3-7.7) k/uL Lymphocytes # 1.6 (1.0-4.8) k/uL Monocytes # 0.4 (0-1.0) k/uL Eosinophils # 0.3 (0-0.7) k/uL Basophils # 0.0 (0-0.2) k/uL Sodium 140 (137-145) mmol/L Potassium 5.1 (3.5-5.1) mmol/L Chloride 106 (98-107) mmol/L Carbon Dioxide 21 L (22-30) mmol/L Anion Gap 13 mmol/L BUN 16 (9-20) mg/dL Creatinine 1.61 H (0.66-1.25) mg/dL Est GFR (CKD-EPI)AfAm 60 (>60 ml/min/1.73 sqM) Est GFR (CKD-EPI)NonAf 52 (>60 ml/min/1.73 sqM) Glucose 113 H (74-99) mg/dL Calcium 10.2 (8.4-10.2) mg/dL Total Bilirubin 1.8 H (0.2-1.3) mg/dL AST 27 (17-59) U/L ALT 38 (21-72) U/L Alkaline Phosphatase 55 (38-126) U/L Total Protein 8.3 H (6.3-8.2) g/dL Albumin 5.3 H (3.5-5.0) g/dL Amylase 59 (30-110) U/L Lipase 72 (23-300) U/L Urine Color Yellow Urine Appearance Clear (Clear) Urine pH 6.0 (5.0-8.0) Ur Specific [place] 1.025 (1.001-1.035) Urine Protein Trace H (Negative) Urine Glucose (UA) Negative (Negative) Urine Ketones Trace H (Negative) Urine Blood Moderate H (Negative) Urine Nitrite Negative (Negative) Urine Bilirubin Negative (Negative) Urine Urobilinogen <2.0 (<2.0) mg/dL Ur Leukocyte Esterase Negative (Negative) Urine RBC 6 H (0-5) /hpf Urine WBC 2 (0-5) /hpf Ur Squamous Epith Cells <1 (0-4) /hpf Urine Mucus Moderate H (None) /hpf Disposition Clinical Impression: Flank pain, Elevated serum creatinine Disposition: HOME SELF-CARE Condition: Good Instructions (If sedation given, give patient instructions): Flank Pain (ED) Additional Instructions: Please follow up with primary care in 1-2 days for repeat kidney function labs. Follow-up for pain as well. If pain is worsening return here to the emergency department. Is patient prescribed a controlled substance at d/c from ED?: No Referrals: Valery Russell MD [Primary Care Provider] - 1-2 days Time of Disposition: 10:58
[2018-09-23 09:26] LABS: Basophils % (A) 1 %; Eosinophils # (A) 0.3 k/uL (0-0.7); Eosinophils % (A) 5 %; HCT 49.5 % (39.0-53.0); HGB 17.1 gm/dL (13.0-17.5); Lymphocytes # (A) 1.6 k/uL (1.0-4.8); Lymphocytes % (A) 25 %; MCH 29.4 pg (25.0-35.0); MCHC 34.5 g/dL (31.0-37.0); MCV 85.1 fL (80.0-100.0); Monocytes # (A) 0.4 k/uL (0-1.0); Monocytes % (A) 6 %; Neutrophils # (A) 3.8 k/uL (1.3-7.7); Neutrophils % (A) 62 %; Platelet Count 274 k/uL (150-450); RBC 5.82 m/uL (4.30-5.90); RDW 13.8 % (11.5-15.5); WBC 6.1 k/uL (3.8-10.6)
[2018-09-23 09:33] LABS: Appearance,Urine Clear (Clear); Bilirubin,Urine Negative (Negative); Blood,Urine Moderate (Negative); Color,Urine Yellow; Glucose,Urine (UA) Negative (Negative); Ketones,Urine Trace (Negative); Leukocyte Esterase,Urine Negative (Negative); Mucus,Urine Moderate /hpf; Nitrite,Urine Negative (Negative); Protein,Urine Trace (Negative); RBC,Urine 6 /hpf (0-5); Specific Gravity,Urine 1.025 (1.001-1.035); Squamous Epithelial Cell,Urine <1 /hpf (0-4); Urobilinogen,Urine <2.0 mg/dL (<2.0); WBC,Urine 2 /hpf (0-5)
[2018-09-23 09:39] LABS: Albumin 5.3 g/dL (3.5-5.0); Calcium 10.2 mg/dL (8.4-10.2); Potassium 5.1 mmol/L (3.5-5.1); Total Bilirubin 1.8 mg/dL (0.2-1.3); Total Protein 8.3 g/dL (6.3-8.2)
--- NOTE | 2018-09-23 09:46 | XR ---
EXAMINATION TYPE: XR KUB DATE OF EXAM: 09/23/2018 CLINICAL HISTORY: Left lower quadrant pain and nausea TECHNIQUE: Upright abdominal radiograph was obtained COMPARISON: 03/28/2015 FINDINGS: Mild amount retained right hemicolonic stool is seen. No dilated large or small bowel. Air is noted within the distal colon. Osseous structures are grossly intact. Lung bases are well aerated. No suspicious abdominal calcification. Phleboliths are noted within the pelvis. IMPRESSION: Nonobstructive bowel gas pattern.
--- NOTE | 2018-09-23 10:15 | CT ---
EXAMINATION TYPE: CT abdomen pelvis wo con DATE OF EXAM: 09/23/2018 COMPARISON: 03/28/2015 HISTORY: Lt flank pain CT DLP: 1262 mGycm Automated exposure control for dose reduction was used. TECHNIQUE: Helical acquisition of images was performed from the lung bases through the pelvis. FINDINGS: LUNG BASES: No significant abnormality is appreciated. LIVER/GB: Unremarkable unenhanced morphology of the liver. No cholelithiasis. PANCREAS: No significant abnormality is seen. SPLEEN: No significant abnormality is seen. ADRENALS: Low-density 1.5 cm adrenal gland lesion suggests a benign adrenal adenoma. This is a noncon trast Hounsfield unit of 12. Left adrenal gland is unremarkable. KIDNEYS: Minimal nonspecific perinephric fat stranding is seen bilaterally. No hydronephrosis or neph rolithiasis. No ureteral calculi. Urinary bladder is decompressed. FREE AIR: No free air is visualized ADENOPATHY: No greater than 1 cm short axis lymph node is seen within the abdomen or pelvis. REPRODUCTIVE ORGANS: No significant abnormality is seen OSSEOUS STRUCTURES: Lytic lesion within the left iliac bone at the left sacroiliac joint may be on a degenerative basis. This is unchanged from the exam of 2014. Mild multilevel degenerative changes of the spine are noted. BOWEL: Appendix is air-filled and within normal limits. No dilated large or small bowel are seen. No colonic or perienteric fat stranding changes. There is questionable mild bowel wall thickening of sm all bowel loops in the left mid abdomen. IMPRESSION: 1. NO EVIDENCE OF NEPHROLITHIASIS OR HYDRONEPHROSIS. 2. NO EVIDENCE OF APPENDICITIS OR PERICOLONIC/PERIENTERIC BOWEL FAT STRANDING. 3. QUESTIONABLE MINIMAL BOWEL WALL THICKENING A FEW LOOPS OF CLUSTERED SMALL BOWEL IN THE LEFT MIDABD OMEN MAY RELATE TO NONSPECIFIC INFLAMMATORY OR INFECTIOUS.
[2018-09-23] MEDS ORDERED: HYDROcodone/APAP 5-325MG 1 EACH TAB PO STA (10:58)
[2018-09-23 11:55] VITALS: BP 148/90; PULSE 95; RESP 16; TEMP 97.8
== END 2018-09-23 11:15 | disposition home or self-care (01) ==
LOC: EC 08:41
DX: R79.89 Other specified abnormal findings of blood chemistry (principal); R10.9 Unspecified abdominal pain; R31.9 Hematuria, unspecified; I10 Essential (primary) hypertension; R61 Generalized hyperhidrosis; G89.29 Other chronic pain; Z87.891 Personal history of nicotine dependence; Z88.0 Allergy status to penicillin; Z88.1 Allergy status to other antibiotic agents; Z88.8 Allergy status to other drugs, medicaments and biological substances; Z79.899 Other long term (current) drug therapy; Z87.442 Personal history of urinary calculi; Z98.1 Arthrodesis status
CPT/HCPCS: 36415; 93005; 80053; 82150; 83690; 85025; 81001; 74018; 74176; 99285; 96374; 96375; 96361; J2405; J1885

== ENCOUNTER 2019-02-21 11:56 | Emergency (ER) | payer OTHER ==
[2019-02-21 12:14] VITALS: RESP 18
[2019-02-21] MEDS ORDERED: IPRATROPIUM-ALBUTEROL 3 ML NEB INHALATION STA (12:24)
--- NOTE | 2019-02-21 12:41 | ED ---
URI HPI - General Chief Complaint: Upper Respiratory Infection Stated Complaint: cough Time Seen by Provider: 02/21/19 12:17 Source: patient, RN notes reviewed Mode of arrival: ambulatory Limitations: no limitations - History of Present Illness Initial Comments: 43-year-old male presents emergency Department chief complaint of cough 2-3 weeks. Patient states his underlying asthma states that he 70 she's with it. Patient states his cough is worse during the hot humid weather. Patient states cough is not improving he's noticed increased wheezing. Patient denies fever, chills. Patient does admit to mild sinus congestion or seasonal ALLERGY issues. Patient denies any chest pain or palpitations denies any nausea vomiting diarrhea constipation. No [id number] cough and cold medications use. - Related Data Home Medications Medication Instructions Recorded Confirmed Lisinopril 40 mg PO DAILY 05/26/16 09/23/18 Ibuprofen [Motrin Ib] 800 mg PO Q6H PRN 09/23/18 09/23/18 Previous Rx's Medication Instructions Recorded Albuterol Sulfate [Proair Hfa] 1 - 2 puff INHALATION Q4HR PRN #1 02/21/19 inhaler Azithromycin [Zithromax Z-pack] 0 mg PO DIRECTED #1 pack 02/21/19 predniSONE 50 mg PO DAILY #5 tab 02/21/19 Allergies Allergy/AdvReac Type Severity Reaction Status Date / Time amoxicillin Allergy Anaphylaxis Verified 02/21/19 12:14 ciprofloxacin [From Cipro] Allergy Anaphylaxis Verified 02/21/19 12:14 haloperidol Allergy Anaphylaxis Verified 02/21/19 12:14 ziprasidone Allergy Unknown Verified 02/21/19 12:14 Review of Systems ROS Statement: Those systems with pertinent positive or pertinent negative responses have been documented in the HPI. ROS Other: All systems not noted in ROS Statement are negative. Past Medical History Past Medical History: Asthma, Hypertension Additional Past Medical History / Comment(s): chronic back and neck pain History of Any Multi-Drug Resistant Organisms: None Reported Past Surgical History: Back Surgery Additional Past Surgical History / Comment(s): cervical fusion, DECOMPRESSION, TOOTH EXTRACTION Past Anesthesia/Blood Transfusion Reactions: No Reported Reaction Past Psychological History: Anxiety, Depression, PTSD Smoking Status: Former smoker Past Alcohol Use History: None Reported Past Drug Use History: None Reported General Exam Limitations: no limitations General appearance: alert, in no apparent distress Head exam: Present: atraumatic, normocephalic, normal inspection Eye exam: Present: normal appearance, PERRL, EOMI. Absent: scleral icterus, conjunctival injection, periorbital swelling ENT exam: Present: normal exam, normal oropharynx, mucous membranes moist, TM's normal bilaterally, normal external ear exam Neck exam: Present: normal inspection, full ROM. Absent: tenderness, meningismus, lymphadenopathy Respiratory exam: Present: wheezes. Absent: normal lung sounds bilaterally, respiratory distress, rales, rhonchi, stridor Cardiovascular Exam: Present: regular rate, normal rhythm, normal heart sounds. Absent: systolic murmur, diastolic murmur, rubs, gallop, clicks GI/Abdominal exam: Present: soft, normal bowel sounds. Absent: distended, tenderness, guarding, rebound, rigid Neurological exam: Present: alert, oriented X3, CN II-XII intact Skin exam: Present: warm, dry, intact, normal color. Absent: rash Course Vital Signs 02/21/19 12:11 Temperature 98.5 F Pulse Rate 90 Respiratory 18 Rate Blood Pressure 153/95 O2 Sat by Pulse 97 Oximetry Medical Decision Making - Medical Decision Making 43-year-old male presented to [facility] for cough. This is related to his underlying asthma. Patient is given updrafts in the emergency Department. She will be discharged on azithromycin and prednisone. Patient will use pro-air inhaler return parameters were discussed. Disposition Clinical Impression: Asthmatic bronchitis Disposition: HOME SELF-CARE Condition: Stable Instructions (If sedation given, give patient instructions): Upper Respiratory Infection (ED) Additional Instructions: Please return to the Emergency Department if symptoms worsen or any other concerns. Prescriptions: predniSONE 50 mg PO DAILY #5 tab Albuterol Sulfate [Proair Hfa] 1 - 2 puff INHALATION Q4HR PRN #1 inhaler PRN Reason: difficulty in breathing Azithromycin [Zithromax Z-pack] 0 mg PO DIRECTED #1 pack Is patient prescribed a controlled substance at d/c from ED?: No Referrals: Valery Russell MD [Primary Care Provider] - 1-2 days Time of Disposition: 13:27
--- NOTE | 2019-02-21 12:53 | XR ---
EXAMINATION TYPE: XR chest 2V DATE OF EXAM: 02/21/2019 COMPARISON: 12/24/2017 HISTORY: 43-year-old male with cough and pain TECHNIQUE: PA and lateral views FINDINGS: Heart normal size. Aorta and pulmonary vasculature within normal limits. No consolidation or pleural effusion. ACDF hardware. Nodularity at the right mid to lower lung. IMPRESSION: Nodularity at the right mid to lower lung could represent nipple shadow. Recommend 4-6 week follow-up radiographs utilizing nipple markers to reassess and exclude underlying pulmonary nodule. No acute c ardiopulmonary process.
[2019-02-21 13:37] VITALS: PULSE 82
[2019-02-21 13:51] VITALS: BP 147/86; TEMP 98.3
== END 2019-02-21 13:50 | disposition home or self-care (01) ==
LOC: EC 11:56
DX: J45.909 Unspecified asthma, uncomplicated (principal); I10 Essential (primary) hypertension; Z79.899 Other long term (current) drug therapy; Z88.0 Allergy status to penicillin; Z88.1 Allergy status to other antibiotic agents; Z88.8 Allergy status to other drugs, medicaments and biological substances; Z87.891 Personal history of nicotine dependence
CPT/HCPCS: 71046; 94640; 99283

== ENCOUNTER 2019-02-27 09:50 | Emergency (ER) | payer OTHER ==
[2019-02-27 09:57] VITALS: TEMP 98
[2019-02-27] MEDS ORDERED: SODIUM CHLORIDE 0.9% 500 ML 500 ML IV STA (10:56)
--- NOTE | 2019-02-27 11:17 | ED ---
General Adult HPI - General Chief complaint: Chest Pain Stated complaint: chest pain; persistant cough Time Seen by Provider: 02/27/19 10:20 Source: patient, RN notes reviewed Mode of arrival: ambulatory Limitations: no limitations - History of Present Illness Initial comments: Ghanshyam is a 43-year-old male with a past medical history of hypertension, asthma who presents to the emergency department for a chief complaint of cough 1 month. Patient states he was seen here a week ago and started on steroids and antibiotics. Patient states that cough has continued. States it is dry and he is not coughing anything up. Patient states he is now having some right-sided chest pain that he feels only with coughing. Denies any significant shortness of breath. States he called his primary care provider today for follow-up and they told him just to come back to the ER if he still had a cough. Patient denies fevers or chills but does state he feels "sweaty." Patient has no other complaints at this time including shortness of breath, abdominal pain, nausea or vomiting, headache, or visual changes. - Related Data Home Medications Medication Instructions Recorded Confirmed Lisinopril 40 mg PO DAILY 05/26/16 02/27/19 Albuterol Sulfate [Proair Hfa] 2 puff INHALATION RT-Q4H PRN 02/27/19 02/27/19 Azithromycin [Zithromax Z-pack] See Taper PO DIRECTED 02/27/19 02/27/19 Previous Rx's Medication Instructions Recorded predniSONE 50 mg PO DAILY #5 tab 02/21/19 Allergies Allergy/AdvReac Type Severity Reaction Status Date / Time amoxicillin Allergy Anaphylaxis Verified 02/27/19 10:24 ciprofloxacin [From Cipro] Allergy Anaphylaxis Verified 02/27/19 10:24 haloperidol Allergy Anaphylaxis Verified 02/27/19 10:24 ziprasidone Allergy Unknown Verified 02/27/19 10:24 Review of Systems ROS Statement: Those systems with pertinent positive or pertinent negative responses have been documented in the HPI. ROS Other: All systems not noted in ROS Statement are negative. Past Medical History Past Medical History: Asthma, Hypertension Additional Past Medical History / Comment(s): chronic back and neck pain History of Any Multi-Drug Resistant Organisms: None Reported Past Surgical History: Back Surgery Additional Past Surgical History / Comment(s): cervical fusion, DECOMPRESSION, TOOTH EXTRACTION Past Anesthesia/Blood Transfusion Reactions: No Reported Reaction Past Psychological History: Anxiety, Depression, PTSD Smoking Status: Former smoker Past Alcohol Use History: None Reported Past Drug Use History: None Reported General Exam Limitations: no limitations General appearance: alert, in no apparent distress Head exam: Present: atraumatic, normocephalic, normal inspection Eye exam: Present: normal appearance, PERRL, EOMI. Absent: scleral icterus, conjunctival injection, periorbital swelling ENT exam: Present: normal exam, normal oropharynx (Uvula midline, non- erythematous, no tonsillar exudates bilaterally), mucous membranes moist, TM's normal bilaterally, normal external ear exam Neck exam: Present: normal inspection, full ROM. Absent: tenderness, meningismus, lymphadenopathy Respiratory exam: Present: chest wall tenderness (Reproducible right anterior chest wall pain), decreased breath sounds (diminished ). Absent: respiratory distress, wheezes, rales, rhonchi, stridor Cardiovascular Exam: Present: regular rate, normal rhythm, normal heart sounds. Absent: systolic murmur, diastolic murmur, rubs, gallop, clicks Neurological exam: Present: alert, oriented X3 Psychiatric exam: Present: normal affect, normal mood Course Vital Signs 02/27/19 02/27/19 02/27/19 09:55 11:30 12:03 Temperature 98 F Pulse Rate 107 H 100 90 Respiratory 18 20 Rate Blood Pressure 158/93 140/80 O2 Sat by Pulse 98 100 Oximetry 02/27/19 12:14 Temperature Pulse Rate 92 Respiratory Rate Blood Pressure O2 Sat by Pulse Oximetry EKG Findings - EKG Comments: EKG Findings:: Normal sinus rhythm, ventricular rate 91, OR interval 150, QRS 72, QTC 396 Medical Decision Making - Medical Decision Making Ghanshyam is a 43-year-old male presented to the emergency department for cough times one month. States cough has been persistent. States he was seen here a week ago and put on steroids and antibiotics but it is not improving. Does have a history of asthma. States he has been using his inhaler. States he called his doctor today to make a follow-up appointment but they told him just to come back to the ER if he was still having cough. Patient states now when he coughs he has some right-sided sharp chest pain. Denies shortness of breath. On exam patient does have right-sided anterior reproducible chest wall pain. Denies pain with taking a deep breath. His CBC is unremarkable. CMP unremarkable. D-dimer was added due to tachycardia of 107 on presentation which was negative. Troponin negative. States his pain has been ongoing for days. EKG is unremarkable. Chest x-ray shows no acute cardiopulmonary process. Chest pain of sharp right sided pain with cough and reproducibility on exam is very a typical. Heart score is 2. The diagnosis at this time is a viral bronchitis. Patient is hemodynamically stable. Follow up outpatient. Discussed returning here if he has any worsening symptoms. Discussed with Dr De La Cruz - Lab Data Result diagrams: 02/27/19 11:11 02/27/19 11:11 Lab Results 02/27/19 02/27/19 02/27/19 Range/Units 11:11 11:11 11:11 WBC 5.7 (3.8-10.6) k/uL RBC 5.44 (4.30-5.90) m/uL Hgb 16.1 (13.0-17.5) gm/dL Hct 46.8 (39.0-53.0) % MCV 86.1 (80.0-100.0) fL MCH 29.7 (25.0-35.0) pg MCHC 34.4 (31.0-37.0) g/dL RDW 15.7 H (11.5-15.5) % Plt Count 299 (150-450) k/uL Neutrophils % 68 % Lymphocytes % 23 % Monocytes % 5 % Eosinophils % 3 % Basophils % 0 % Neutrophils # 3.9 (1.3-7.7) k/uL Lymphocytes # 1.3 (1.0-4.8) k/uL Monocytes # 0.3 (0-1.0) k/uL Eosinophils # 0.2 (0-0.7) k/uL Basophils # 0.0 (0-0.2) k/uL PT 10.1 (9.0-12.0) sec INR 0.9 (<1.2) APTT 23.6 (22.0-30.0) sec D-Dimer <0.17 (<0.60) mg/L FEU Sodium 140 (137-145) mmol/L Potassium 4.3 (3.5-5.1) mmol/L Chloride 103 (98-107) mmol/L Carbon Dioxide 24 (22-30) mmol/L Anion Gap 13 mmol/L BUN 11 (9-20) mg/dL Creatinine 0.93 (0.66-1.25) mg/dL Est GFR (CKD-EPI)AfAm >90 (>60 ml/min/1.73 sqM) Est GFR (CKD-EPI)NonAf >90 (>60 ml/min/1.73 sqM) Glucose 105 H (74-99) mg/dL Calcium 10.3 H (8.4-10.2) mg/dL Magnesium 2.0 (1.6-2.3) mg/dL Total Bilirubin 1.2 (0.2-1.3) mg/dL AST 25 (17-59) U/L ALT 37 (21-72) U/L Alkaline Phosphatase 56 (38-126) U/L Troponin I (0.000-0.034) ng/mL Total Protein 8.0 (6.3-8.2) g/dL Albumin 5.2 H (3.5-5.0) g/dL 02/27/19 Range/Units 11:11 WBC (3.8-10.6) k/uL RBC (4.30-5.90) m/uL Hgb (13.0-17.5) gm/dL Hct (39.0-53.0) % MCV (80.0-100.0) fL MCH (25.0-35.0) pg MCHC (31.0-37.0) g/dL RDW (11.5-15.5) % Plt Count (150-450) k/uL Neutrophils % % Lymphocytes % % Monocytes % % Eosinophils % % Basophils % % Neutrophils # (1.3-7.7) k/uL Lymphocytes # (1.0-4.8) k/uL Monocytes # (0-1.0) k/uL Eosinophils # (0-0.7) k/uL Basophils # (0-0.2) k/uL PT (9.0-12.0) sec INR (<1.2) APTT (22.0-30.0) sec D-Dimer (<0.60) mg/L FEU Sodium (137-145) mmol/L Potassium (3.5-5.1) mmol/L Chloride (98-107) mmol/L Carbon Dioxide (22-30) mmol/L Anion Gap mmol/L BUN (9-20) mg/dL Creatinine (0.66-1.25) mg/dL Est GFR (CKD-EPI)AfAm (>60 ml/min/1.73 sqM) Est GFR (CKD-EPI)NonAf (>60 ml/min/1.73 sqM) Glucose (74-99) mg/dL Calcium (8.4-10.2) mg/dL Magnesium (1.6-2.3) mg/dL Total Bilirubin (0.2-1.3) mg/dL AST (17-59) U/L ALT (21-72) U/L Alkaline Phosphatase (38-126) U/L Troponin I <0.012 (0.000-0.034) ng/mL Total Protein (6.3-8.2) g/dL Albumin (3.5-5.0) g/dL Disposition Clinical Impression: Cough, Atypical chest pain Disposition: HOME SELF-CARE Condition: Good Instructions (If sedation given, give patient instructions): Chest Pain (ED), Costochondritis (ED), Acute Cough (ED) Additional Instructions: Please follow up with primary care in 1-2 days. Continue to use inhaler. Return to the emergency department if you have any worsening symptoms. Is patient prescribed a controlled substance at d/c from ED?: No Referrals: Valery Russell MD [Primary Care Provider] - 1-2 days Time of Disposition: 12:55
[2019-02-27 11:37] LABS: Basophils % (A) 0 %; Eosinophils # (A) 0.2 k/uL (0-0.7); Eosinophils % (A) 3 %; HCT 46.8 % (39.0-53.0); HGB 16.1 gm/dL (13.0-17.5); Lymphocytes # (A) 1.3 k/uL (1.0-4.8); Lymphocytes % (A) 23 %; MCH 29.7 pg (25.0-35.0); MCHC 34.4 g/dL (31.0-37.0); MCV 86.1 fL (80.0-100.0); Mean Platelet Volume 7.1; Monocytes # (A) 0.3 k/uL (0-1.0); Monocytes % (A) 5 %; Neutrophils # (A) 3.9 k/uL (1.3-7.7); Neutrophils % (A) 68 %; Platelet Count 299 k/uL (150-450); RBC 5.44 m/uL (4.30-5.90); RDW 15.7 % (11.5-15.5); WBC 5.7 k/uL (3.8-10.6)
[2019-02-27 11:44] LABS: D-Dimer <0.17 mg/L FEU (<0.60); INR 0.9 (<1.2); Partial Thromboplastin Time 23.6 sec (22.0-30.0); Prothrombin Time 10.1 sec (9.0-12.0)
[2019-02-27] MEDS ORDERED: IPRATROPIUM-ALBUTEROL 3 ML NEB INHALATION STA (11:46)
[2019-02-27 11:50] LABS: ALT 37 U/L (21-72); AST 25 U/L (17-59); African American GFR (CKD) >90 (>60 ml/min/1.73 sqM); Albumin 5.2 g/dL (3.5-5.0); Alkaline Phosphatase 56 U/L (38-126); Anion Gap 13 mmol/L; Blood Urea Nitrogen 11 mg/dL (9-20); Calcium 10.3 mg/dL (8.4-10.2); Carbon Dioxide 24 mmol/L (22-30); Chloride 103 mmol/L (98-107); Glucose 105 mg/dL (74-99); Potassium 4.3 mmol/L (3.5-5.1); Sodium 140 mmol/L (137-145); Total Bilirubin 1.2 mg/dL (0.2-1.3)
--- NOTE | 2019-02-27 11:54 | XR ---
EXAMINATION TYPE: XR chest 2V DATE OF EXAM: 02/27/2019 COMPARISON: 02/21/2019 HISTORY: 43-year-old male with chest pain TECHNIQUE: AP and lateral views FINDINGS: Heart normal size. Aorta and pulmonary vasculature within normal limits. No consolidation or pleural effusion. Partially visualized ACDF hardware. IMPRESSION: No acute cardiopulmonary process.
[2019-02-27 13:36] VITALS: BP 137/85; PULSE 96; RESP 16
== END 2019-02-27 13:35 | disposition home or self-care (01) ==
LOC: EC 09:50
DX: J40 Bronchitis, not specified as acute or chronic (principal); R00.0 Tachycardia, unspecified; I10 Essential (primary) hypertension; Z87.891 Personal history of nicotine dependence; Z79.899 Other long term (current) drug therapy; Z88.0 Allergy status to penicillin; Z88.1 Allergy status to other antibiotic agents; Z88.8 Allergy status to other drugs, medicaments and biological substances
CPT/HCPCS: 36415; 71046; 80053; 83735; 84484; 85025; 85379; 85610; 85730; 93005; 94640; 96360; 96361; 99285

== ENCOUNTER → 2020-02-01 | Outpatient (CLI) | payer OTHER ==
--- NOTE | 2020-02-01 13:01 | US ---
EXAMINATION TYPE: US scrotum with doppler. TECHNIQUE: Grayscale and color Doppler Duplex imaging performed of the scrotum. DATE OF EXAM: 02/01/2020 COMPARISON: NONE CLINICAL HISTORY: 44-year-old male N50.82, R10.30, R30.0 SCROTAL PAIN. Testicle pain for 1 month, get ting worse Findings: EXAM MEASUREMENTS: TESTICLES: Right Testicle: 5.0 x 2.1 x 3.5 cm Left Testicle: 4.5 x 2.1 x 3.7 cm EPIDIDYMIS HEAD: Right Epididymis: 1.2 cm Left Epididymis: 0.9 cm Doppler performed to assess for testicular vascularity; good bilateral color flow and waveforms are s een. There is no evidence of testicular torsion. Some prominent vessels are noted in the scrotum. These do not engorge with Valsalva to indicate varic oceles. No hydrocele. IMPRESSION: No sonographic evidence for testicular torsion or epididymoorchitis. No hydrocele.
== END | disposition home or self-care (01) ==
LOC: RADUSWWP 09:40
PROVIDERS: ATTEND Family Medicine
DX: N50.82 Scrotal pain (principal)
CPT/HCPCS: 76870; 93975

== ENCOUNTER → 2020-02-01 | Outpatient (CLI) | payer OTHER ==
--- NOTE | 2020-02-01 13:45 | CT ---
EXAMINATION TYPE: CT abdomen pelvis w con DATE OF EXAM: 02/01/2020 COMPARISON: 09/23/2018 HISTORY: PELVIC PAIN CT DLP: 2182.4 mGycm CONTRAST: CT scan of the abdomen and pelvis is performed with Oral Contrast and with IV Contrast, patient injec jeff with 100 mL of Isovue 300. FINDINGS: LUNG BASES-: No visible nodule. No infiltrate. LIVER/GB: No calcified gallstones. No space occupying hepatic lesion. Biliary tree is of normal ca liber. PANCREAS: No inflammation. No distinct mass. SPLEEN: No splenic enlargement. No lesion seen. ADRENALS: Stable right adrenal nodule likely reflective of adenoma measuring 1.4 cm. Left adrenal gla nd is free of nodule. No thickening. KIDNEYS/BLADDER: No hydronephrosis. No nephrolithiasis. No distinct renal mass. Urinary bladder g rossly unremarkable. BOWEL: Normal appendix. Normal bowel caliber. No inflammation. GENITAL ORGANS: No gross abnormality. LYMPH NODES: No greater than 1cm abdominal or pelvic lymph nodes are appreciated. AORTA: No significant abnormality. OSSEOUS STRUCTURES: No significant abnormality is seen. OTHER: No significant additional abnormality is seen. IMPRESSION: 1. No significant abnormality to account for the patient's symptoms.
== END | disposition home or self-care (01) ==
LOC: RADCTMAIN 10:39
PROVIDERS: ATTEND Family Medicine
DX: R10.30 Lower abdominal pain, unspecified (principal); R30.0 Dysuria; N50.82 Scrotal pain
CPT/HCPCS: 74177; Q9967

== ENCOUNTER → 2020-08-07 | Outpatient (CLI) | payer OTHER | END | disposition home or self-care (01) | LOC: LABWHC1 14:52 | PROVIDERS: ATTEND Family Medicine | DX: Z20.828 Contact with and (suspected) exposure to other viral communicable diseases (principal) | CPT/HCPCS: U0003; C9803 ==

== ENCOUNTER → 2020-11-13 | Outpatient (CLI) | payer OTHER | END | disposition home or self-care (01) | LOC: LABWHC1 13:05 | PROVIDERS: ATTEND Family Medicine | DX: Z20.822 Contact with and (suspected) exposure to COVID-19 (principal) | CPT/HCPCS: U0003; C9803; U0005 ==

== ENCOUNTER 2020-12-08 22:13 | Inpatient (IN) | payer OTHER ==
[2020-12-08] MEDS ORDERED: ONDANSETRON 4 MG/2 ML VIAL IVP STA (22:27)
[2020-12-08] MEDS ORDERED: PANTOPRAZOLE 40 MG/10 ML VIAL IVP STA (22:27)
[2020-12-08] MEDS ORDERED: SODIUM CHLORIDE 0.9% 1,000 ML IV STA ×2 (22:27)
--- NOTE | 2020-12-08 22:58 | ED ---
GI Bleed HPI - General Chief complaint: GI Bleed Stated complaint: Vomiting Blood Time Seen by Provider: 12/08/20 22:23 Source: patient, EMS, RN notes reviewed, old records reviewed Mode of arrival: EMS Limitations: no limitations - History of Present Illness Initial comments: This is a 45-year-old male DF for evaluation patient Dese for evaluation regards to significant throat pain vomiting and vomiting blood. Patient originally was just vomiting and now has been noticing blood in his vomit. Patient is no abdominal pain no blood thinners, patient does have high blood pressure on lisinopril. Otherwise no recent travel history no sick contacts, does have sore throat but no fevers MD complaint: blood streaked emesis -: hour(s) Radiation: none Severity scale (1-10): 3 Consistency: constant Improves with: none Worsens with: none Context: other (Lisinopril) Associated Symptoms: nausea, vomiting, weakness Treatments Prior to Arrival: none - Related Data Home Medications Medication Instructions Recorded Confirmed lisinopriL [Lisinopril] 40 mg PO DAILY 05/26/16 02/27/19 Albuterol Sulfate [Proair Hfa] 2 puff INHALATION RT-Q4H PRN 02/27/19 02/27/19 Azithromycin [Zithromax Z-pack (6 See Taper PO DIRECTED 02/27/19 02/27/19 tabs)] Previous Rx's Medication Instructions Recorded predniSONE 50 mg PO DAILY #5 tab 02/21/19 Allergies Allergy/AdvReac Type Severity Reaction Status Date / Time amoxicillin Allergy Anaphylaxis Verified 12/08/20 22:27 ciprofloxacin [From Cipro] Allergy Anaphylaxis Verified 12/08/20 22:27 haloperidol Allergy Anaphylaxis Verified 12/08/20 22:27 ziprasidone Allergy Unknown Verified 12/08/20 22:27 Review of Systems ROS Statement: Those systems with pertinent positive or pertinent negative responses have been documented in the HPI. ROS Other: All systems not noted in ROS Statement are negative. Past Medical History Past Medical History: Asthma, Hyperlipidemia, Hypertension Additional Past Medical History / Comment(s): chronic back and neck pain History of Any Multi-Drug Resistant Organisms: None Reported Past Surgical History: Back Surgery Additional Past Surgical History / Comment(s): cervical fusion, DECOMPRESSION, TOOTH EXTRACTION Past Anesthesia/Blood Transfusion Reactions: No Reported Reaction Past Psychological History: Anxiety, Depression, PTSD Smoking Status: Former smoker Past Alcohol Use History: None Reported Past Drug Use History: None Reported General Exam Limitations: no limitations General appearance: alert, in no apparent distress, anxious, obese Head exam: Present: atraumatic, normocephalic, normal inspection Eye exam: Present: normal appearance, PERRL, EOMI. Absent: scleral icterus, conjunctival injection, periorbital swelling ENT exam: Present: other (Patient has significant edema the posterior pharynx and uvula) Neck exam: Present: normal inspection. Absent: tenderness, meningismus, lymphadenopathy Respiratory exam: Present: normal lung sounds bilaterally. Absent: respiratory distress, wheezes, rales, rhonchi, stridor Cardiovascular Exam: Present: regular rate, normal rhythm, normal heart sounds. Absent: systolic murmur, diastolic murmur, rubs, gallop, clicks GI/Abdominal exam: Present: soft, normal bowel sounds. Absent: distended, tenderness, guarding, rebound, rigid Extremities exam: Present: normal inspection, full ROM, normal capillary refill. Absent: tenderness, pedal edema, joint swelling, calf tenderness Back exam: Present: normal inspection Neurological exam: Present: alert, oriented X3, CN II-XII intact Psychiatric exam: Present: normal affect, normal mood Skin exam: Present: warm, dry, intact, normal color. Absent: rash Course Vital Signs 12/08/20 12/08/20 12/09/20 22:23 23:22 00:07 Temperature 99.1 F 98.7 F Pulse Rate 87 94 85 Respiratory 18 20 20 Rate Blood Pressure 170/104 150/98 141/91 O2 Sat by Pulse 97 94 L 97 Oximetry - Reevaluation(s) Reevaluation #1: 12/09/20 01:23 Medical record is reviewed Reevaluation #2: 12/09/20 01:24 No change in symptoms here in the emergency department. No shortness of breath or stridor Reevaluation #3: 12/09/20 01:24 Patient informed results and questions have been answered Reevaluation #4: 12/09/20 01:24 Patient will be admitted for airway monitoring Medical Decision Making - Medical Decision Making 45 male mildly significant distress coming in with nausea vomiting. Patient is been vomiting for 2 days so dosing significant for the day maybe some pain in some significant pain in the back of his throat decreased appetite difficulty swallowing. Patient is on lisinopril. Patient does appear to angioedema of his uvula posterior pharynx. Patient will admit for airway monitoring, hold lisinopril - Lab Data Result diagrams: 12/08/20 23:02 12/08/20 23:02 Lab Results 12/08/20 12/08/20 12/08/20 Range/Units 23:00 23:02 23:02 WBC 5.2 (3.8-10.6) k/uL RBC 5.01 (4.30-5.90) m/uL Hgb 15.6 (13.0-17.5) gm/dL Hct 43.0 (39.0-53.0) % MCV 85.8 (80.0-100.0) fL MCH 31.1 (25.0-35.0) pg MCHC 36.2 (31.0-37.0) g/dL RDW 14.0 (11.5-15.5) % Plt Count 218 (150-450) k/uL MPV 7.2 Neutrophils % 56 % Lymphocytes % 32 % Monocytes % 6 % Eosinophils % 4 % Basophils % 1 % Neutrophils # 2.9 (1.3-7.7) k/uL Lymphocytes # 1.7 (1.0-4.8) k/uL Monocytes # 0.3 (0-1.0) k/uL Eosinophils # 0.2 (0-0.7) k/uL Basophils # 0.0 (0-0.2) k/uL PT 10.4 (9.0-12.0) sec INR 1.0 (<1.2) APTT 19.3 L (22.0-30.0) sec Sodium (137-145) mmol/L Potassium (3.5-5.1) mmol/L Chloride (98-107) mmol/L Carbon Dioxide (22-30) mmol/L Anion Gap mmol/L BUN (9-20) mg/dL Creatinine (0.66-1.25) mg/dL Est GFR (CKD-EPI)AfAm (>60 ml/min/1.73 sqM) Est GFR (CKD-EPI)NonAf (>60 ml/min/1.73 sqM) Glucose (74-99) mg/dL Calcium (8.4-10.2) mg/dL Magnesium (1.6-2.3) mg/dL Total Bilirubin (0.2-1.3) mg/dL AST (17-59) U/L ALT (4-49) U/L Alkaline Phosphatase (38-126) U/L Troponin I (0.000-0.034) ng/mL C-Reactive Protein <0.5 (<1.0) mg/dL Total Protein (6.3-8.2) g/dL Albumin (3.5-5.0) g/dL Lipase (23-300) U/L Heterophile Antibody (Negative) Group A Strep Rapid (Negative) 12/08/20 12/08/20 12/08/20 Range/Units 23:02 23:02 23:52 WBC (3.8-10.6) k/uL RBC (4.30-5.90) m/uL Hgb (13.0-17.5) gm/dL Hct (39.0-53.0) % MCV (80.0-100.0) fL MCH (25.0-35.0) pg MCHC (31.0-37.0) g/dL RDW (11.5-15.5) % Plt Count (150-450) k/uL MPV Neutrophils % % Lymphocytes % % Monocytes % % Eosinophils % % Basophils % % Neutrophils # (1.3-7.7) k/uL Lymphocytes # (1.0-4.8) k/uL Monocytes # (0-1.0) k/uL Eosinophils # (0-0.7) k/uL Basophils # (0-0.2) k/uL PT (9.0-12.0) sec INR (<1.2) APTT (22.0-30.0) sec Sodium 135 L (137-145) mmol/L Potassium 3.6 (3.5-5.1) mmol/L Chloride 101 (98-107) mmol/L Carbon Dioxide 25 (22-30) mmol/L Anion Gap 9 mmol/L BUN 11 (9-20) mg/dL Creatinine 1.10 (0.66-1.25) mg/dL Est GFR (CKD-EPI)AfAm >90 (>60 ml/min/1.73 sqM) Est GFR (CKD-EPI)NonAf 81 (>60 ml/min/1.73 sqM) Glucose 136 H (74-99) mg/dL Calcium 9.7 (8.4-10.2) mg/dL Magnesium 1.7 (1.6-2.3) mg/dL Total Bilirubin 1.4 H (0.2-1.3) mg/dL AST 35 (17-59) U/L ALT 27 (4-49) U/L Alkaline Phosphatase 66 (38-126) U/L Troponin I <0.012 (0.000-0.034) ng/mL C-Reactive Protein (<1.0) mg/dL Total Protein 6.9 (6.3-8.2) g/dL Albumin 4.5 (3.5-5.0) g/dL Lipase 177 (23-300) U/L Heterophile Antibody Negative (Negative) Group A Strep Rapid (Negative) 12/08/20 Range/Units 23:52 WBC (3.8-10.6) k/uL RBC (4.30-5.90) m/uL Hgb (13.0-17.5) gm/dL Hct (39.0-53.0) % MCV (80.0-100.0) fL MCH (25.0-35.0) pg MCHC (31.0-37.0) g/dL RDW (11.5-15.5) % Plt Count (150-450) k/uL MPV Neutrophils % % Lymphocytes % % Monocytes % % Eosinophils % % Basophils % % Neutrophils # (1.3-7.7) k/uL Lymphocytes # (1.0-4.8) k/uL Monocytes # (0-1.0) k/uL Eosinophils # (0-0.7) k/uL Basophils # (0-0.2) k/uL PT (9.0-12.0) sec INR (<1.2) APTT (22.0-30.0) sec Sodium (137-145) mmol/L Potassium (3.5-5.1) mmol/L Chloride (98-107) mmol/L Carbon Dioxide (22-30) mmol/L Anion Gap mmol/L BUN (9-20) mg/dL Creatinine (0.66-1.25) mg/dL Est GFR (CKD-EPI)AfAm (>60 ml/min/1.73 sqM) Est GFR (CKD-EPI)NonAf (>60 ml/min/1.73 sqM) Glucose (74-99) mg/dL Calcium (8.4-10.2) mg/dL Magnesium (1.6-2.3) mg/dL Total Bilirubin (0.2-1.3) mg/dL AST (17-59) U/L ALT (4-49) U/L Alkaline Phosphatase (38-126) U/L Troponin I (0.000-0.034) ng/mL C-Reactive Protein (<1.0) mg/dL Total Protein (6.3-8.2) g/dL Albumin (3.5-5.0) g/dL Lipase (23-300) U/L Heterophile Antibody (Negative) Group A Strep Rapid Negative (Negative) - Radiology Data Radiology results: report reviewed (CTA soft tissue neck does show pharyngeal edema), image reviewed Critical Care Time Critical Care Time: Yes Total Critical Care Time: 31 Disposition Clinical Impression: Angioedema, Allergy to lisinopril, Nausea & vomiting, Uvular edema, Hematochezia, Lizbeth-John tear Disposition: ADMITTED IP TO THIS [facility] Condition: Serious Is patient prescribed a controlled substance at d/c from ED?: No Referrals: Valery Russell MD [Primary Care Provider] - 1-2 days
[2020-12-08 23:12] LABS: Basophils % (A) 1 %; Eosinophils # (A) 0.2 k/uL (0-0.7); Eosinophils % (A) 4 %; HGB 15.6 gm/dL (13.0-17.5); Lymphocytes # (A) 1.7 k/uL (1.0-4.8); Lymphocytes % (A) 32 %; MCH 31.1 pg (25.0-35.0); MCHC 36.2 g/dL (31.0-37.0); MCV 85.8 fL (80.0-100.0); Mean Platelet Volume 7.2; Monocytes # (A) 0.3 k/uL (0-1.0); Monocytes % (A) 6 %; Neutrophils # (A) 2.9 k/uL (1.3-7.7); Neutrophils % (A) 56 %; Platelet Count 218 k/uL (150-450); RBC 5.01 m/uL (4.30-5.90); WBC 5.2 k/uL (3.8-10.6)
--- NOTE | 2020-12-08 23:12 | XR ---
EXAMINATION TYPE: XR chest 1V portable DATE OF EXAM: 12/08/2020 COMPARISON: 02/27/2019 HISTORY: Chest pain. Vomiting blood. TECHNIQUE: FINDINGS: Heart and mediastinum are normal. Lungs are clear. Diaphragm is normal. Bony thorax is inta ct. IMPRESSION: No active cardiopulmonary disease. Normal heart. No change.
[2020-12-08 23:28] LABS: ALT 27 U/L (4-49); AST 35 U/L (17-59); African American GFR (CKD) >90 (>60 ml/min/1.73 sqM); Albumin 4.5 g/dL (3.5-5.0); Alkaline Phosphatase 66 U/L (38-126); Anion Gap 9 mmol/L; Blood Urea Nitrogen 11 mg/dL (9-20); Calcium 9.7 mg/dL (8.4-10.2); Carbon Dioxide 25 mmol/L (22-30); Chloride 101 mmol/L (98-107); Glucose 136 mg/dL (74-99); Lipase 177 U/L (23-300); Magnesium 1.7 mg/dL (1.6-2.3); Non-African American GFR(CKD) 81 (>60 ml/min/1.73 sqM); Potassium 3.6 mmol/L (3.5-5.1); Sodium 135 mmol/L (137-145); Total Bilirubin 1.4 mg/dL (0.2-1.3); Total Protein 6.9 g/dL (6.3-8.2)
[2020-12-08] MEDS ORDERED: diphenhydrAMINE 50 MG/ML 1 ML VIAL IVP STA (23:32)
[2020-12-08] MEDS ORDERED: FAMOTIDINE 20 MG/2 ML VIAL IV STA (23:32)
[2020-12-08] MEDS ORDERED: DEXAMETHASONE SOD PHOSPHATE 10 MG/ML 1 ML VIAL IV STA (23:32)
[2020-12-08] MEDS ORDERED: DEXAMETHASONE SOD PHOSPHATE 4 MG/ML 1 ML VIAL IV PRN (23:32)
[2020-12-08 23:34] LABS: Prothrombin Time 10.4 sec (9.0-12.0)
[2020-12-08 23:36] LABS: Partial Thromboplastin Time 19.3 sec (22.0-30.0)
--- NOTE | 2020-12-09 00:15 | CT ---
EXAMINATION TYPE: CT soft tissue neck w con DATE OF EXAM: 12/08/2020 COMPARISON: None HISTORY: pain CT DLP: 673.9 mGycm Automated exposure control for dose reduction was used. CONTRAST: Performed with IV Contrast, patient injected with 100 mL of Isovue 300. Images were obtained from the level of the aortic arch to the top of the frontal sinuses with IV cont rast. There is normal-appearing superior mediastinum. There is normal branching pattern of the great vessel s on the aortic arch the thyroid gland appears symmetric. I see no evidence of pharyngeal mass. The e piglottis appears normal. There is some prominence of the uvula. The soft palate is thickened and paige sures 15 mm. There is narrowing of the nasopharyngeal airway. Adenoids appear thickened and measure 1 cm. The tongue is intact. The trachea appears intact. Submandibular salivary glands are intact. Paro tid glands are symmetric. The cervical vertebra show some straightening. There is anterior fusion surgery from C4 to C7. There is anterior large bridging osteophyte at C3-4. Facet joints are intact. IMPRESSION: Thickening of the soft palate and uvula. This probably relates to inflammatory disease. No significan t enlargement of the tonsils. There is narrowing of the nasopharyngeal airway. 2 cm mucous retention cyst noted in the right maxillary sinus. No other significant sign of sinusitis .
[2020-12-09] MEDS ORDERED: diphenhydrAMINE 50 MG/ML 1 ML VIAL IVP PRN (01:11)
[2020-12-09] MEDS ORDERED: TRANEXAMIC ACID 1,000 MG in SODIUM CHLORIDE 0.9% 100 ML IVPB ONE (01:11)
[2020-12-09] MEDS ORDERED: NALOXONE 0.4 MG/ML 1 ML VIAL IV PRN (01:11)
[2020-12-09] MEDS: DEXTROSE 5%-0.45% NACL 1,000 ML IV SCH ×2 (02:43→08:20)
[2020-12-09] MEDS: MORPHINE SULFATE 4 MG/ML SYRINGE IV PRN ×5 (02:51→22:56)
[2020-12-09] MEDS ORDERED: FAMOTIDINE 20 MG/2 ML VIAL IV SCH (09:00)
[2020-12-09] MEDS ORDERED: TEMAZEPAM 15 MG CAP PO PRN (11:51)
[2020-12-09] MEDS: SODIUM CHLORIDE 0.9% 1,000 ML IV SCH (14:06)
[2020-12-09] MEDS: HEPARIN SODIUM,PORCINE/PF 5,000 UNIT/0.5 ML SYRINGE SQ SCH ×2 (14:07→19:53)
[2020-12-09] MEDS: PANTOPRAZOLE 40 MG/10 ML VIAL IVP SCH ×2 (14:07→19:53)
--- NOTE | 2020-12-09 14:31 | HP ---
HISTORY AND PHYSICAL DATE OF SERVICE: 12/09/2020. CHIEF COMPLAINT: Gastrointestinal bleed. HISTORY OF PRESENT ILLNESS: This 45-year-old gentleman with a past medical history of multiple medical problems including history of asthma, hyperlipidemia, history of hypertension, history of chronic back pain, history of back surgery, anxiety, depression, PTSD, being followed by Dr. Valery Russell in the outpatient setting is not feeling well over the past several days. The patient was apparently initially vomiting blood and subsequently patient also noted some significant sore throat and neck pain also. The patient came to [facility] and the evaluation revealed including CT scan noted thickening of the soft palate and uvula, probably related inflammatory issues and patient admitted for further evaluation and treatment. A 2 cm mucous retention cyst was also noted in the right maxillary sinus. ENT and infectious disease evaluation has been also sought along with Gastroenterology. There is no history of any fever, rigors. No history of headache, loss of consciousness or seizures. PAST MEDICAL HISTORY: Asthma, hyperlipidemia, hypertension, chronic back pain, anxiety, depression, PTSD. MEDICATIONS: Home medications are: 1. Lisinopril. 2. Lipitor. Doses are reviewed. ALLERGIES: AMOXICILLIN, CIPRO, HALOPERIDOL, ZIPRASIDONE. FAMILY HISTORY: No history of heart disease or strokes in the family. SOCIAL HISTORY: History of alcohol. Previous history of smoking. REVIEW OF SYSTEMS: ENT: As mentioned earlier. CARDIOVASCULAR SYSTEM: No angina. RESPIRATORY SYSTEM: No cough or hemoptysis. GI: As mentioned earlier. : No dysuria. NERVOUS SYSTEM: No numbness or weakness. ALLERGY/IMMUNOLOGY: As mentioned earlier. MUSCULOSKELETAL: As mentioned earlier. HEMATOLOGY: No history anemia. ENDOCRINE: No history of diabetes or hypothyroidism. CONSTITUTIONAL: As mentioned earlier. DERMATOLOGY: Negative. RHEUMATOLOGY: Negative. PSYCHIATRY: As mentioned earlier. PHYSICAL EXAMINATION: The patient is alert and oriented x3. Pulse 84, blood pressure 141/87, respiration 18, temperature 97.9, pulse ox 96% on room air. HEENT: Conjunctivae normal. NECK: No jugular venous distention. CARDIOVASCULAR: S1, S2 muffled. RESPIRATORY: Breath sounds diminished at the bases. A few scattered rhonchi and crackles. ABDOMEN: Soft, obese, nontender. No mass palpable. LEGS: No edema, no swelling. NERVOUS SYSTEM: Higher function as mentioned earlier. Moves all 4 limbs. No focal motor or sensory deficits. LYMPHATICS: No lymphadenopathy of the neck, axillae or groin. SKIN: No ulcer, rash or bleeding. JOINTS: No active deforming arthropathy. LABS: CBC within normal limits. PT is 10.4, INR is 1. Sodium is 135, potassium 3.6. Glucose 136. Total bilirubin is 1.4. ASSESSMENT: 1. Possibly vomiting and hematemesis and upper gastrointestinal bleeding. 2. Significant upper respiratory infection, rule out sepsis with bacterial or viral pharyngitis. 3. Hyponatremia. 4. History of EtOH. 5. History of asthma. 6. Hypertension. 7. Hyperlipidemia. 8. Chronic back pain and neck pain. 9. History of degenerative joint disease. 10.Cervical fusion. 11.Anxiety, depression, posttraumatic stress disorder. 12.History of nicotine dependence. 13.Obesity with body mass index of 39.3. 14.FULL CODE. RECOMMENDATIONS AND DISCUSSION: This 45-year-old gentleman who presented with multiple complex medical issues, we will monitor the patient closely. Continue the current medications. Continue symptomatic treatment. Empirical antibiotics will be continued. Cultures will be obtained and I would also recommend repeat labs. Also order a CRP, ESR and procalcitonin also. Dr. Mcneill will be consulted from infectious disease point of view along with ENT and Gastroenterology. Overall prognosis is extremely guarded because of the multiple complex medical issues in this individual as mentioned earlier. A copy of dictation forwarded to Dr. Valery Russell who is the primary physician. Please also note COVID- 19 is negative. I would also recommend influenza also. MMODL / IJN: [id number] /
[2020-12-09 14:51] LABS: ALT 29 U/L (4-49); AST 42 U/L (17-59); African American GFR (CKD) >90 (>60 ml/min/1.73 sqM); Albumin/Globulin Ratio 1.8; Alkaline Phosphatase 71 U/L (38-126); Anion Gap 13 mmol/L; Blood Urea Nitrogen 5 mg/dL (9-20); C Reactive Protein <0.5 mg/dL (<1.0); Carbon Dioxide 21 mmol/L (22-30); Chloride 106 mmol/L (98-107); Globulin 2.8 g/dL; Glucose 130 mg/dL (74-99); Non-African American GFR(CKD) >90 (>60 ml/min/1.73 sqM); Potassium 4.3 mmol/L (3.5-5.1); Sodium 140 mmol/L (137-145); Total Bilirubin 1.2 mg/dL (0.2-1.3); Total Protein 7.8 g/dL (6.3-8.2)
--- NOTE | 2020-12-09 15:47 | P.CONS ---
History of Present Illness - Reason for Consult Consult date: 12/09/20 Hematemesis Requesting physician: Zulma Lindo - Chief Complaint Nausea, vomiting, hematemesis - History of Present Illness 45-year-old male with multiple medical comorbidities including chronic back pain, hyperlipidemia, asthma, anxiety, depression, schizophrenia, PTSD who presented to the hospital with complaints of nausea and vomiting, hematemesis and sore throat. The patient reports soreness in his throat and neck with associated sensation of fullness in those areas. He reports 3 episodes of emesis, initially this was normal however subsequently the patient noted some bright red blood mixed with his vomitus. He denies any abdominal pain. He denies any history of GI bleed. He did however have a colonoscopy in the past after fecal occult blood testing was positive which she believes was normal. No history of peptic ulcer disease. No further episodes of bleeding since arrival. Hemoglobin stable presentation of 15.6 with WBC 5.2, platelet count 218,000, total bilirubin 1.4, alkaline phosphatase 66, AST 35 and ALT 27. Computed tomography scan of the soft tissue of the neck with thickening of the soft palate and uvula probably related to inflammatory disease with no significant enlargement of the tonsils there is noted to be narrowing of the nasopharyngeal airway. Review of Systems REVIEW OF SYSTEMS: CONSTITUTIONAL: Denies any fevers, chills, weight change or fatigue. CARDIOVASCULAR: Denies any chest pain, palpitations high or low blood pressures RESPIRATORY: Denies any shortness of breath, hemoptysis or cough. GENITOURINARY: No dysuria or hematuria. MUSCULOSKELETAL: No weakness reported. SKIN: Denies any new rashes or lesions, jaundice or pallor. PSYCHIATRIC: Denies any depression or anxiety. NEUROLOGY: Denies headache, denies any new focal deficits. EARS/NOSE/THROAT: No recent hearing change, congestion, nasal discharge or sore throat. EYES: No pain in eyes, discharge or change in vision. GASTROINTESTINAL: As per HPI. Past Medical History Past Medical History: Asthma, Hyperlipidemia, Hypertension Additional Past Medical History / Comment(s): chronic back and neck pain History of Any Multi-Drug Resistant Organisms: None Reported Past Surgical History: Back Surgery Additional Past Surgical History / Comment(s): cervical fusion, DECOMPRESSION, TOOTH EXTRACTION Past Anesthesia/Blood Transfusion Reactions: No Reported Reaction Past Psychological History: Anxiety, Depression, PTSD Additional Psychological History / Comment(s): STATES GOING TO BEGIN INTAKE PROCESS WITH [facility], NOT CURRENTLY TAKING ANY MEDS Smoking Status: Former smoker Past Alcohol Use History: None Reported Additional Past Alcohol Use History / Comment(s): Pt stated he used alcohol to manage mental health symptoms. Past Drug Use History: None Reported Additional Drug Use History / Comment(s): Denies. Additional History: Family history: Reviewed with the patient and noncontributory to current medical presentation. Medications and Allergies Home Medications Medication Instructions Recorded Confirmed Type lisinopriL [Lisinopril] 40 mg PO DAILY 05/26/16 12/09/20 History Atorvastatin Calcium [Lipitor] 20 mg PO HS 12/09/20 12/09/20 History Allergies Allergy/AdvReac Type Severity Reaction Status Date / Time amoxicillin Allergy Anaphylaxis Verified 12/09/20 06:59 ciprofloxacin [From Cipro] Allergy Anaphylaxis Verified 12/09/20 06:59 haloperidol Allergy Anaphylaxis Verified 12/09/20 06:59 ziprasidone Allergy Unknown Verified 12/09/20 06:59 Physical Exam Vitals: Vital Signs Temp Pulse Pulse Resp BP BP Pulse Ox 12/09/20 08:00 84 18 12/09/20 07:00 97.9 F 84 18 141/87 96 12/09/20 02:00 98.7 F 86 16 170/82 96 12/09/20 01:50 87 20 138/94 97 12/09/20 00:07 98.7 F 85 20 141/91 97 12/08/20 23:22 94 20 150/98 94 L 12/08/20 22:23 99.1 F 87 18 170/104 97 Intake and Output 12/08/20 12/09/20 12/09/20 22:59 06:59 14:59 Output Total 150 Balance -150 Output: Urine 150 Other: Voiding Method Toilet Toilet Urinal Urinal # Voids 3 Weight 131.542 kg 131.542 kg On physical examination, patient appears comfortable in no apparent distress. HEAD: Normocephalic, atraumatic. EYES: No scleral icterus. No conjunctival injection. MOUTH: No lesions, tongue midline. NECK: Trachea midline, no gross abnormalities. CHEST: Clear to auscultation with no wheezing or rhonchi appreciated. HEART: Regular rate and rhythm. ABDOMEN: Soft, obese. Bowel sounds are positive. No organomegaly. No guarding or rigidity. EXTREMITIES: No pedal edema. SKIN: No rashes, no jaundice. NEUROLOGIC: Alert and oriented x3. No focal deficits. Results CBC & Chem 7: 12/08/20 23:02 12/09/20 14:00 Labs: Abnormal Lab Results - Last 24 Hours (Table) 12/08/20 12/08/20 Range/Units 23:02 23:02 APTT 19.3 L (22.0-30.0) sec Sodium 135 L (137-145) mmol/L Glucose 136 H (74-99) mg/dL Total Bilirubin 1.4 H (0.2-1.3) mg/dL Microbiology - Last 24 Hours (Table) 12/08/20 23:52 Group A Strep Throat Culture - Preliminary Throat CT scan - pelvis: report reviewed (Computed tomography scan of the soft tissue of the neck with thickening of the soft palate and uvula probably related to inflammatory disease with no significant enlargement of the tonsils there is noted to be narrowing of the nasopharyngeal airway.) Assessment and Plan (1) Hematemesis Narrative/Plan: 45-year-old male multiple medical comorbidities presenting to the hospital for fullness of the throat and soreness with episodes of nausea and vomiting with some hematemesis noted. No prior episodes of hematemesis or GI bleeding. He denies any history of peptic ulcer disease. No further episodes of hematemesis since presentation with a normal hemoglobin of 15.6. The episode occurred after retching with some streaking of blood noted in his vomitus. Suspicion is for esophagitis or Lizbeth-John tear with no further bleeding since presentation. Given patient's current compromise airway do not recommend endoscopic evaluation but will proceed with conservative medical management which is been explained to the patient at length and for which he agrees with the treatment plan with all of this questions answered at length to his satisfaction. Current Visit: Yes Status: Acute Code(s): K92.0 - HEMATEMESIS SNOMED Code(s): 6675560 (2) Nausea & vomiting Current Visit: Yes Status: Acute Code(s): R11.2 - NAUSEA WITH VOMITING, UNSPECIFIED SNOMED Code(s): 18546148 Plan: Supportive care Clear liquid diet Infectious disease consulted to see the patient ENT consulted to see the patient Continue Protonix therapy Avoid NSAID therapy Continue to monitor hemoglobin and hematocrit and transfuse as needed No plans for endoscopic evaluation at this time, we will reevaluate if there is further bleeding or precipitous fall in hemoglobin, otherwise continue with medical management which has been discussed with the patient at length with his questions answered to his satisfaction Thank you for allowing us to participate in the care of the patient
--- NOTE | 2020-12-09 15:54 | P.GSCN ---
History of Present Illness Consult date: 12/09/20 Reason for Consult: Throat swelling, vomiting blood Requesting physician: Zulma Lindo History of present illness: This is a 45-year-old white male who tells me that he's had 3-4 weeks of vomiting. The last 3-4 days of vomiting was much worse. He admits to drinking a fifth of vodka per day. Last evening he vomited and bright red profuse blood was coming from the mouth and throat. He called EMS and was transported here to the emergency room. He was evaluated by the ER doctor. I understand that he was found have uvular swelling and I've been asked to consult regarding the uvular swelling and vomiting issues. His last vomited episode was at 1:30 this morning. He does snore at night per the patient. He is on lisinopril and angioedema was a consideration as a possible etiology for the uvular edema. He denies any drug use denies smoking but again does drink about 1/5 of March per day. 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 Review of Systems - Constitutional Reports as per HPI - EENT Ears, nose, mouth and throat: Reports as per HPI - Cardiovascular Reports as per HPI - Respiratory Reports as per HPI - Gastrointestinal Reports as per HPI - Genitourinary Reports as per HPI - Musculoskeletal Reports as per HPI - Integumentary Reports as per HPI - Neurological Reports as per HPI - Psychiatric Reports as per HPI - Endocrine Reports as per HPI - Hematologic/Lymphatic Reports as per HPI - Allergic/Immunologic Reports as per HPI Past Medical History Past Medical History: Asthma, Hyperlipidemia, Hypertension Additional Past Medical History / Comment(s): chronic back and neck pain History of Any Multi-Drug Resistant Organisms: None Reported Past Surgical History: Back Surgery Additional Past Surgical History / Comment(s): cervical fusion, DECOMPRESSION, TOOTH EXTRACTION Past Anesthesia/Blood Transfusion Reactions: No Reported Reaction Past Psychological History: Anxiety, Depression, PTSD Additional Psychological History / Comment(s): STATES GOING TO BEGIN INTAKE PROCESS WITH [facility], NOT CURRENTLY TAKING ANY MEDS Smoking Status: Former smoker Past Alcohol Use History: None Reported Additional Past Alcohol Use History / Comment(s): Pt stated he used alcohol to manage mental health symptoms. Past Drug Use History: None Reported Additional Drug Use History / Comment(s): Denies. Medications and Allergies Home Medications Medication Instructions Recorded Confirmed Type lisinopriL [Lisinopril] 40 mg PO DAILY 05/26/16 12/09/20 History Atorvastatin Calcium [Lipitor] 20 mg PO HS 12/09/20 12/09/20 History Allergies Allergy/AdvReac Type Severity Reaction Status Date / Time amoxicillin Allergy Anaphylaxis Verified 12/09/20 06:59 ciprofloxacin [From Cipro] Allergy Anaphylaxis Verified 12/09/20 06:59 haloperidol Allergy Anaphylaxis Verified 12/09/20 06:59 ziprasidone Allergy Unknown Verified 12/09/20 06:59 Surgical - Exam Osteopathic Statement: *. No significant issues noted on an osteopathic structural exam other than those noted in the History and Physical/Consult. Vital Signs Temp Pulse Resp BP Pulse Ox 99.1 F 87 18 170/104 97 12/08/20 22:23 12/08/20 22:23 12/08/20 22:23 12/08/20 22:23 12/08/20 22:23 - General well developed, well nourished, no distress, obese - Eyes PERRL, normal ocular movement - ENT Head is normocephalic the face is symmetric there's no abnormal movements is no tenderness to the sinuses are mastoids. There is no nodules or eruptions or parasites on scalp. Ears auricles are well-formed canals are clear the tympanic members are without bulging or retraction. Nose is patent. Mouth and throat uvular edema is noted the uvula swelling doubled the normal size. There is ecchymosis into the soft palate on the right side. No oral lesions are noted. Neck is wide and thickened no tumors or masses are palpable. - Respiratory normal expansion, normal respiratory effort - Integumentary no rash - Neurologic normal coordination, normal sensation - Musculoskeletal normal gait, normal posture - Psychiatric oriented to time, oriented to person, oriented to place, speech is normal, memory intact Results - Labs 12/08/20 23:02 12/09/20 14:00 Abnormal Lab Results - Last 24 Hours (Table) 12/08/20 12/08/20 12/09/20 Range/Units 23:02 23:02 14:00 APTT 19.3 L (22.0-30.0) sec Sodium 135 L (137-145) mmol/L Carbon Dioxide 21 L (22-30) mmol/L BUN 5 L (9-20) mg/dL Glucose 136 H 130 H (74-99) mg/dL Total Bilirubin 1.4 H (0.2-1.3) mg/dL Microbiology - Last 24 Hours (Table) 12/08/20 23:52 Group A Strep Throat Culture - Preliminary Throat Diabetes panel 12/08/20 12/09/20 Range/Units 23:02 14:00 Sodium 135 L 140 (137-145) mmol/L Potassium 3.6 4.3 (3.5-5.1) mmol/L Chloride 101 106 (98-107) mmol/L Carbon Dioxide 25 21 L (22-30) mmol/L BUN 11 5 L (9-20) mg/dL Creatinine 1.10 0.96 (0.66-1.25) mg/dL Glucose 136 H 130 H (74-99) mg/dL Calcium 9.7 10.0 (8.4-10.2) mg/dL AST 35 42 (17-59) U/L ALT 27 29 (4-49) U/L Alkaline Phosphatase 66 71 (38-126) U/L Total Protein 6.9 7.8 (6.3-8.2) g/dL Albumin 4.5 5.0 (3.5-5.0) g/dL Calcium panel 12/08/20 12/09/20 Range/Units 23:02 14:00 Calcium 9.7 10.0 (8.4-10.2) mg/dL Albumin 4.5 5.0 (3.5-5.0) g/dL Pituitary panel 12/08/20 12/09/20 Range/Units 23:02 14:00 Sodium 135 L 140 (137-145) mmol/L Potassium 3.6 4.3 (3.5-5.1) mmol/L Chloride 101 106 (98-107) mmol/L Carbon Dioxide 25 21 L (22-30) mmol/L BUN 11 5 L (9-20) mg/dL Creatinine 1.10 0.96 (0.66-1.25) mg/dL Glucose 136 H 130 H (74-99) mg/dL Calcium 9.7 10.0 (8.4-10.2) mg/dL Adrenal panel 12/08/20 12/09/20 Range/Units 23:02 14:00 Sodium 135 L 140 (137-145) mmol/L Potassium 3.6 4.3 (3.5-5.1) mmol/L Chloride 101 106 (98-107) mmol/L Carbon Dioxide 25 21 L (22-30) mmol/L BUN 11 5 L (9-20) mg/dL Creatinine 1.10 0.96 (0.66-1.25) mg/dL Glucose 136 H 130 H (74-99) mg/dL Calcium 9.7 10.0 (8.4-10.2) mg/dL Total Bilirubin 1.4 H 1.2 (0.2-1.3) mg/dL AST 35 42 (17-59) U/L ALT 27 29 (4-49) U/L Alkaline Phosphatase 66 71 (38-126) U/L Total Protein 6.9 7.8 (6.3-8.2) g/dL Albumin 4.5 5.0 (3.5-5.0) g/dL Assessment and Plan Assessment: Nausea and vomiting Uvular edema Hematemesis Plan: This patient's uvular edema and soft palate ecchymosis most likely is secondary to his severe and bilateral vomiting and chronic alcohol consumption. There may be a relationship with lisinopril but doubtful. Recommending a soft diet gargling with ice water and resting with head elevated. The patient is a candidate for an upper GI scope to rule out esophageal varices and/ or other pathology of the esophagus on her stomach. She is also a candidate for a sleep study. This can be done on outpatient basis. I've given the patient my card and the patient is to follow up with me after discharge. Endoscopy does not reveal any tumors or masses of the nasopharynx oropharynx or hypopharynx.
--- NOTE | 2020-12-09 15:57 | P.OP ---
Date of Procedure: 12/09/20 Preoperative Diagnosis: Hematemesis and uvular edema Postoperative Diagnosis: Same Procedure(s) Performed: Flexible nasopharyngeal laryngoscopy Anesthesia: none Surgeon: Naeem Tobar Estimated Blood Loss (ml): 0 Pathology: none sent Condition: stable Disposition: floor Indications for Procedure: This patient had hematemesis and uvular edema. Endoscopy to rule out a source of bleeding in the hypopharynx is to be ruled out along with airway assessment etc. Operative Findings: Patient has a left septal deviation at the midportion. No tumors or masses of the nasopharynx oropharynx or hypopharynx. Large uvula was noted. No signs of malignancy is seen. Generalized hypopharyngeal inflammation noted. Vocal cords are moving well. Description of Procedure: An EF type GP nasopharyngoscope was inserted into the patient's nose on the right side. We followed the floor the nose underneath the inferior turbinate to the nasopharynx and into the oropharynx and then into the hypopharynx. The nasopharynx showed no signs of any tumors or masses. The hypopharynx and oropharynx does show an enlarged uvula. No signs of any tumors or masses. There is a nonspecific hypopharyngeal inflammation noted. The larynx and vocal cords moved well.
[2020-12-09] MEDS: ALPRAZolam 0.25 MG TAB PO PRN (16:08)
[2020-12-09] MEDS: HYDROcodone/APAP 5-325MG 1 EACH TAB PO PRN (19:51)
[2020-12-10] MEDS: SODIUM CHLORIDE 0.9% 1,000 ML IV SCH ×2 (02:11→19:58)
[2020-12-10] MEDS: MORPHINE SULFATE 4 MG/ML SYRINGE IV PRN ×5 (03:22→19:45)
[2020-12-10] MEDS: HYDROcodone/APAP 5-325MG 1 EACH TAB PO PRN (04:21)
[2020-12-10 05:34] LABS: African American GFR (CKD) 93.5 (60.0-200.0); Albumin/Globulin Ratio 2.63 (1.60-3.17); Anion Gap 9.9 mmol/L (4.00-12.00); BUN/Creat Ratio 6.36 Ratio (12.00-20.00); Calcium 9.2 mg/dL (8.7-10.3); Carbon Dioxide 23.1 mmol/L (21.6-31.8); Globulin 1.9 g/dL (1.6-3.3); Non-African American GFR(CKD) 80.6 (60.0-200.0); Potassium 3.9 mmol/L (3.5-5.5); Total Bilirubin 1.2 mg/dL (0.3-1.2); Total Protein 6.9 g/dL (6.2-8.2)
[2020-12-10] MEDS: PANTOPRAZOLE 40 MG/10 ML VIAL IVP SCH ×2 (08:24→19:54)
[2020-12-10] MEDS: HEPARIN SODIUM,PORCINE/PF 5,000 UNIT/0.5 ML SYRINGE SQ SCH ×2 (08:24→19:54)
[2020-12-10 09:09] LABS: Basophils # (A) 0.02 X 10*3/uL (0.00-0.10); Basophils % (A) 0.3 %; Eosinophils # (A) 0.04 X 10*3/uL (0.04-0.35); Eosinophils % (A) 0.6 %; HGB 13.6 g/dL (13.0-17.0); Lymphocytes # (A) 1.62 X 10*3/uL (0.90-5.00); MCH 29.8 pg (27.0-32.0); MCV 87.7 fL (80.0-97.0); Mean Platelet Volume 9.7 fL (9.5-12.2); Monocytes # (A) 0.43 X 10*3/uL (0.20-1.00); Monocytes % (A) 6.9 %; Neutrophils # (A) 4.11 X 10*3/uL (1.80-7.70); Neutrophils % (A) 65.9 %; Platelet Count 195 X 10*3/uL (140-440); RBC 4.56 X 10*6/uL (4.40-5.60); RDW 13.9 % (11.5-14.5); WBC 6.24 X 10*3/uL (4.50-10.00)
[2020-12-10 09:39] LABS: African American GFR (CKD) 119.1 (60.0-200.0); Anion Gap 11.6 mmol/L (4.00-12.00); BUN/Creat Ratio 6.67 Ratio (12.00-20.00); Calcium 8.9 mg/dL (8.7-10.3); Carbon Dioxide 23.4 mmol/L (21.6-31.8); Non-African American GFR(CKD) 102.8 (60.0-200.0); Potassium 3.5 mmol/L (3.5-5.5)
[2020-12-10] MEDS: ALBUTEROL NEBULIZED 2.5 MG/3 ML INHALATION SCH ×2 (11:23→19:53)
[2020-12-10 11:48] LABS: Glucose,Whole Blood 125 mg/dL (75-99)
--- NOTE | 2020-12-10 12:38 | P.PN ---
Subjective Progress Note Date: 12/10/20 Principal diagnosis: Hematemesis Patient is seen and examined sitting up in bed. He denies any further nausea or vomiting, denies any hematemesis. He was seen yesterday by ENT Dr. Prakash who performed a flexible nasopharyngeal laryngoscopy with findings of left septal deviation at the midportion, no tumors or masses of the nasopharynx oropharynx or hypopharynx. Large uvula noted. No signs of malignancy seen. Generalized hypopharyngeal inflammation noted. The patient denies any abdominal pain, or black stools. His hemoglobin is stable at 13.6. The patient did come forward for stating that he drinks a half gallon to a gallon of vodka daily, he is been doing this for at least a couple years but has become heavier since the pandemic. Objective - Vital Signs Vital signs: Vital Signs Temp 98.1 F 12/10/20 07:00 Pulse 84 12/10/20 07:00 Resp 17 12/10/20 07:00 BP 148/87 12/10/20 07:00 Pulse Ox 96 12/10/20 01:17 Intake & Output 12/09/20 12/10/20 12/10/20 18:59 06:59 18:59 Intake Total 370 900 300 Balance 370 900 300 Intake: IV 320 Dextrose 5%-0.45% NaCl 1, 320 000 ml @ 80 mls/hr IV . [id number] MIKE Rx#:[id number] Intake, IV Titration 50 900 Amount Sodium Chloride 0.9% 1, 900 000 ml @ 75 mls/hr IV . [id number] MIKE Rx#:[id number] cefTRIAXone 2 gm In 50 Sodium Chloride 0.9% 50 ml @ 100 mls/hr IVPB Q12HR MIKE Rx#:[id number] Oral 300 Other: Voiding Method Toilet Toilet Urinal Urinal # Voids 2 - Exam General appearance: The patient is alert, oriented, appears in no acute distress. HET: Head is normocephalic and atraumatic. Conjunctiva pink. Sclera anicteric. No lesions, tongue midline. Neck: Supple without lymphadenopathy. Abdomen: Soft, obese, nontender, nondistended with bowel sounds. No guarding or rigidity. Extremities: Normal skin color and turgor. No pedal edema Skin: No rashes, no jaundice Neurological: No focal deficits. Alert and oriented 3. - Labs CBC & Chem 7: 12/10/20 05:26 12/10/20 05:26 Labs: Abnormal Lab Results - Last 24 Hours (Table) 12/09/20 12/09/20 Range/Units 14:00 15:50 Carbon Dioxide 21 L (22-30) mmol/L BUN 5 L 7.0 L (9-20) mg/dL BUN/Creatinine Ratio 6.36 L (12.00-20.00) Ratio Glucose 130 H 127 H (74-99) mg/dL AST 37 H (14-35) U/L Albumin 5.00 H (3.80-4.90) g/dL Microbiology - Last 24 Hours (Table) 12/08/20 23:52 Group A Strep Throat Culture - Preliminary Throat Assessment and Plan (1) Hematemesis Narrative/Plan: This is a 45-year-old male multiple medical comorbidities presenting to the hospital for fullness of the throat and soreness with episodes of nausea and vomiting with some hematemesis noted. No prior episodes of hematemesis or GI bleeding. He denies any history of peptic ulcer disease. No further episodes of hematemesis since presentation with a normal hemoglobin of 15.6. The episode occurred after retching with some streaking of blood noted in his vomitus. Suspicion is for esophagitis or Lizbeth-John tear with no further bleeding since presentation. Given patient's current compromise airway do not recommend endoscopic evaluation but will proceed with conservative medical management wh ich is been explained to the patient at length and for which he agrees with the treatment plan with all of this questions answered at length to his satisfaction. Current Visit: Yes Status: Acute Code(s): K92.0 - HEMATEMESIS SNOMED Code(s): 0114756 (2) Nausea & vomiting Narrative/Plan: Resolved Current Visit: Yes Status: Acute Code(s): R11.2 - NAUSEA WITH VOMITING, UNS PECIFIED SNOMED Code(s): 76919995 (3) Angioedema Narrative/Plan: ENT following, patient underwent flexible nasopharyngeal laryngoscopy Current Visit: Yes Status: Acute Code(s): T78.3XXA - ANGIONEUROTIC EDEMA, INITIAL ENCOUNTER SNOMED Code(s): 78777419 (4) Uvular edema Current Visit: Yes Status: Acute Code(s): K13.79 - OTHER LESIONS OF ORAL MUCOSA SNOMED Code(s): 618477904 Plan: 1. Continue symptomatic and supportive care 2. Advance to chopped diet 3. Infectious disease and ENT consult to see patient 4. Continue Protonix therapy 5. Avoid NSAID use 6. Continue to monitor hemoglobin and hematocrit 7. Alcohol cessation It was again discussed with patient risks outweighing benefits of proceeding with EGD. Given patient's current compromised airway we do not recommend endoscopic evaluation but will proceed with conservative medical management which is been explained to the patient at length and for which he agrees with the treatment plan with all of this questions answered at length to his satisfaction. We will continue to monitor symptoms, if he has significant drop in hemoglobin or return of hematemesis will consider endoscopic evaluation if ev aluated and cleared by anesthesia. Thank you for this consultation, we will continue to follow. Dr. Montesinos I agree with the dictator's note, documented as a scribe by Rufina Dangelo.
[2020-12-10] MEDS: methylPREDNISolone SOD SUCCI 125 MG/2 ML VIAL IV SCH ×2 (12:46→19:51)
[2020-12-10] MEDS: ONDANSETRON 4 MG/2 ML VIAL IVP PRN (15:13)
[2020-12-10] MEDS: ALPRAZolam 0.25 MG TAB PO PRN ×2 (16:25→21:40)
--- NOTE | 2020-12-10 17:00 | PN ---
PROGRESS NOTE DATE OF SERVICE: 12/10/2020 This 45-year-old gentleman admitted with acute upper GI bleeding also had significant angioedema. Exact etiology of the angioedema is unclear at this time. The patient has significant swelling. The patient is also being empirically treated with antibiotics, but the cultures are negative at this time. The patient is feeling slightly better. Multiple consultants are following the patient closely. The patient also has some stridor at this time. Past medical history reviewed. REVIEW OF SYSTEMS: CARDIOVASCULAR SYSTEM: No angina, palpitations. RESPIRATORY SYSTEM: As mentioned earlier. GI: As mentioned earlier. : No dysuria or retention. NERVOUS SYSTEM: No numbness, weakness. CURRENT MEDICATIONS: Reviewed. They include [place], Ventolin, Benadryl, Ativan, Solu-Medrol, Narcan. PHYSICAL EXAMINATION: Patient is alert, oriented x3. Pulse is 76, blood pressure 148/87, respiration 17, temperature 98.1, pulse ox 96% on room air. HEENT: Conjunctivae normal. NECK: No jugular venous distention. CARDIOVASCULAR SYSTEM: S1, S2 muffled. RESPIRATORY SYSTEM: Breath sounds diminished at the bases. Scattered rhonchi. No crackles. ABDOMEN: Soft. Non-tender. LEGS: No edema. No swelling. NERVOUS SYSTEM: No focal deficit. LABS: Labs at this time show CBC within normal limits and BUN is 6, glucose 125. ASSESSMENT: 1. Possible vomiting as well as acute hematemesis with acute upper gastrointestinal bleeding. 2. Significant upper respiratory infection, swelling, with possible bilateral uvular swelling and edema, possibly angioedema, possibly bacterial or viral pharyngitis with sepsis. 3. Rule out stridor. 4. Hyponatremia. 5. History of ETOH. 6. History of asthma. 7. Hypertension. 8. Hyperlipidemia. 9. Chronic back pain and neck pain. 10.History of degenerative joint disease. 11.Cervical fusion history. 12.Anxiety, depression, post-traumatic stress disorder. 13.History of nicotine dependence. 14.Obesity with body mass index of 39.3. 15.FULL CODE. RECOMMENDATIONS AND DISCUSSION: I recommend to continue current medications, continue with the monitoring, symptomatic treatment. I also recommend empiric IV steroids. Monitor blood sugars closely. Accu- Cheks before meals and scale. I would also recommend pulmonary consultation for evaluation of the possible stridor. Portable chest x-ray will be repeated. Guarded prognosis. Further recommendations to follow. The patient also will require outpatient followup. MMODL / IJN: [id number] /
[2020-12-10 17:02] LABS: Glucose,Whole Blood 139 mg/dL (75-99)
[2020-12-11] MEDS: methylPREDNISolone SOD SUCCI 125 MG/2 ML VIAL IV SCH ×2 (00:34→05:40)
[2020-12-11] MEDS: ONDANSETRON 4 MG/2 ML VIAL IVP PRN (02:32)
[2020-12-11] MEDS: MORPHINE SULFATE 4 MG/ML SYRINGE IV PRN ×5 (02:32→19:45)
[2020-12-11 04:25] LABS: Glucose,Whole Blood 159 mg/dL (75-99)
[2020-12-11] MEDS: LORazepam 2 MG/ML INJ IV PRN ×3 (04:31→21:19)
[2020-12-11] MEDS: SODIUM CHLORIDE 0.9% 1,000 ML IV SCH (05:41)
[2020-12-11 07:08] LABS: HCT 40.6 % (39.0-53.0); HGB 13.8 gm/dL (13.0-17.5); MCH 30.1 pg (25.0-35.0); MCV 88.5 fL (80.0-100.0); Platelet Count 224 k/uL (150-450); RBC 4.59 m/uL (4.30-5.90); RDW 14.5 % (11.5-15.5); WBC 9.3 k/uL (3.8-10.6)
[2020-12-11] MEDS: ALBUTEROL NEBULIZED 2.5 MG/3 ML INHALATION SCH ×2 (07:26→21:17)
[2020-12-11 07:53] LABS: Glucose,Whole Blood 136 mg/dL (75-99)
[2020-12-11] MEDS: HEPARIN SODIUM,PORCINE/PF 5,000 UNIT/0.5 ML SYRINGE SQ SCH ×2 (08:09→19:45)
[2020-12-11] MEDS: PANTOPRAZOLE 40 MG/10 ML VIAL IVP SCH ×2 (08:09→19:46)
[2020-12-11] MEDS ORDERED: LORazepam 2 MG/ML INJ IV PRN ×3 (10:15)
[2020-12-11 12:07] LABS: Glucose,Whole Blood 136 mg/dL (75-99)
--- NOTE | 2020-12-11 12:32 | P.CNPUL ---
History of Present Illness Consult date: 12/11/20 Requesting physician: Zulma Lindo Reason for consult: other ([place]) Chief complaint: Throat pain, vomiting, vomiting blood History of present illness: This is a very pleasant 45-year-old obese gentleman with a known history of hypertension and had been on lisinopril for quite some time. He presented to the emergency room 12/08/2020 with complaints of throat pain, vomiting and vomiting blood. Chest x-ray reveals no active cardiopulmonary process. A computed tomography scan of the neck revealed thickening of the soft palate and uvula. Probably related to inflammatory disease. No significant enlargement of the tonsils. There is narrowing of the nares of pharyngeal airway. There is a 2 cm mucous retention cysts noted in the right maxillary sinus. He was seen by GI services and ENT. A flexible nasopharyngeal laryngoscopy was performed for hematemesis and uvular edema. No tumors or masses noted. Nonspecific hypodensity pharyngeal inflammation noted. White count 9.3. Hemoglobin 13.8. Glucose 136. Sodium 139. Potassium 3.5. Creatinine 0.9. [place] virus was not detected. Group A Strep negative. Influenza negative. Heterophile antibody negative. He is seen today in consultation on the regular medical floor. He is awake and alert in no acute distress. No stridor. He is maintaining O2 saturation in the 90s on room air. He's been afebrile. Hemodynamically stable. He is currently on IV Solu-Medrol, ceftriaxone. IV Protonix. He is quite minimal sitting and 75 per hour. Review of Systems REVIEW OF SYSTEMS: CONSTITUTIONAL: Denies any recent significant weight loss or weight gain. EYES: Denies change in vision. EARS, NOSE, MOUTH, THROAT: Sore throat. Hematemesis CARDIOVASCULAR: Denies chest pain, palpitations or syncopal episodes. RESPIRATORY: Denies shortness of breath, cough, congestion or hemoptysis. GASTROINTESTINAL: Denies change in appetite, denies abdominal pain GENITOURINARY: Denies hematuria, denies infections. MUSKULOSKELETAL: Denies pain, denies swelling. INTEGUMENTARY: Denies rash, denies eczema. NEUROLOGICAL: Denies recent memory loss, no recent seizure activity. PSYCHIATRIC: Denies anxiety, denies depression. HEMATOLOGIC/LYMPHATIC: Denies anemia, denies enlarged lymph nodes. Past Medical History Past Medical History: Asthma, Hyperlipidemia, Hypertension Additional Past Medical History / Comment(s): chronic back and neck pain History of Any Multi-Drug Resistant Organisms: None Reported Past Surgical History: Back Surgery Additional Past Surgical History / Comment(s): cervical fusion, DECOMPRESSION, TOOTH EXTRACTION Past Anesthesia/Blood Transfusion Reactions: No Reported Reaction Past Psychological History: Anxiety, Depression, PTSD Additional Psychological History / Comment(s): STATES GOING TO BEGIN INTAKE PROCESS WITH [facility], NOT CURRENTLY TAKING ANY MEDS Smoking Status: Former smoker Past Alcohol Use History: None Reported Additional Past Alcohol Use History / Comment(s): Pt stated he used alcohol to manage mental health symptoms. Past Drug Use History: None Reported Additional Drug Use History / Comment(s): Denies. Medications and Allergies Home Medications Medication Instructions Recorded Confirmed Type lisinopriL [Lisinopril] 40 mg PO DAILY 05/26/16 12/09/20 History Atorvastatin Calcium [Lipitor] 20 mg PO HS 12/09/20 12/09/20 History Allergies Allergy/AdvReac Type Severity Reaction Status Date / Time amoxicillin Allergy Anaphylaxis Verified 12/09/20 06:59 ciprofloxacin [From Cipro] Allergy Anaphylaxis Verified 12/09/20 06:59 haloperidol Allergy Anaphylaxis Verified 12/09/20 06:59 ziprasidone Allergy Unknown Verified 12/09/20 06:59 Physical Exam Vitals: Vital Signs Temp Pulse Pulse Resp BP Pulse Ox 12/11/20 07:36 78 12/11/20 07:26 80 12/11/20 07:00 98.1 F 97 16 151/81 12/11/20 02:00 97.8 F 86 16 145/73 93 L 12/10/20 20:05 76 12/10/20 20:00 98.1 F 98 18 156/94 93 L 12/10/20 19:53 76 12/10/20 15:00 98 F 97 20 153/92 99 Intake and Output 12/10/20 12/11/20 12/11/20 22:59 06:59 14:59 Intake Total 405 650 Output Total 1 1 Balance 404 649 Intake: Intake, IV Titration 225 650 Amount Sodium Chloride 0.9% 1, 175 600 000 ml @ 75 mls/hr IV . [id number] MIKE Rx#:[id number] cefTRIAXone 2 gm In 50 50 Sodium Chloride 0.9% 50 ml @ 100 mls/hr IVPB Q12HR MIKE Rx#:[id number] Oral 180 Output: Urine 1 1 Other: Voiding Method Toilet Toilet Toilet Urinal Urinal Urinal # Voids 3 GENERAL EXAM: Alert, obese 45-year-old gentleman, on room air, comfortable in no apparent distress. HEAD: Normocephalic. EYES: Normal reaction of pupils, equal size. NOSE: Clear with pink turbinates. THROAT: Slight edema and erythema of the uvula and steer pharynx NECK: No masses, no JVD. CHEST: No chest wall deformity. LUNGS: Equal air entry with no crackles, wheeze, rhonchi or dullness. CVS: S1 and S2 normal with no audible murmur, regular rhythm. ABDOMEN: No hepatosplenomegaly, normal bowel sounds, no guarding or rigidity. SPINE: No scoliosis or deformity SKIN: No rashes CENTRAL NERVOUS SYSTEM: No focal deficits, tone is normal in all 4 extremities. EXTREMITIES: There is no peripheral edema. No clubbing, no cyanosis. Peripheral pulses are intact. Results - Laboratory Findings CBC and BMP: 12/11/20 06:26 12/10/20 05:26 PT/INR, D-dimer PT 10.4 sec (9.0-12.0) 12/08/20 23:02 INR 1.0 (<1.2) 12/08/20 23:02 D-Dimer 0.31 mg/L FEU (<0.60) 12/09/20 17:16 Abnormal lab findings: Abnormal Labs 12/08/20 12/08/20 12/09/20 23:02 23:02 14:00 APTT 19.3 L Sodium 135 L Carbon Dioxide 21 L BUN 5 L BUN/Creatinine Ratio Glucose 136 H 130 H POC Glucose (mg/dL) Total Bilirubin 1.4 H AST Albumin 12/09/20 12/10/20 12/10/20 15:50 05: 11:47 APTT Sodium Carbon Dioxide BUN 7.0 L 6.0 L BUN/Creatinine Ratio 6.36 L 6.67 L Glucose 127 H POC Glucose (mg/dL) 125 H Total Bilirubin AST 37 H Albumin 5.00 H 12/10/20 12/11/20 12/11/20 17:00 04:23 07:51 APTT Sodium Carbon Dioxide BUN BUN/Creatinine Ratio Glucose POC Glucose (mg/dL) 139 H 159 H 136 H Total Bilirubin AST Albumin 12/11/20 12:06 APTT Sodium Carbon Dioxide BUN BUN/Creatinine Ratio Glucose POC Glucose (mg/dL) 136 H Total Bilirubin AST Albumin - Diagnostic Findings Chest x-ray: image reviewed Assessment and Plan Assessment: 1 Sore throat, edema and swelling of the uvula, suspect ALLERGIC reaction to lisinopril. Group a strep ruled out 2 Hematemesis, possible upper GI bleed, no plans for EGD at this point due to above 3 Hyponatremia 4 History of EtOH 5 Hypertension 6 Hyperlipidemia 7 Chronic back pain 8 Anxiety/depression, PTSD 9 History of tobacco dependence 10 Obesity Plan: The patient was seen and evaluated by Dr. Riley Chest x-ray, CAT scans and labs reviewed Discontinue and treat lisinopril as an ALLERGY ENT and GI services on consult Continue IV Solu-Medrol Benadryl as needed Continue Protonix We will continue to follow and make further recommendations based on his clinical I, the cosigning physician, performed a history & physical examination of the patient. Lungs sounds are clear. Maintaining good O2 saturations in the 90s on room air. I discussed the assessment and plan of care with my nurse practitioner, Rosina Luke. I attest to the above consultation as dictated by her. Time with Patient: Greater than 30
--- NOTE | 2020-12-11 12:49 | PN ---
PROGRESS NOTE DATE OF SERVICE: 12/11/2020 REASON FOR FOLLOW UP: Pharyngitis, possibly traumatic. No evidence of any abscess clinically. INTERVAL HISTORY: The patient is currently afebrile. The patient mentioned overall improvement in his sore throat. He is able to swallow. Denies having any difficulty breathing. No chest pain, shortness of breath, cough, no abdominal pain or diarrhea. PHYSICAL EXAMINATION: Blood pressure 151/81 with a pulse of 97, temperature 98.1. He is 93% on room air. General description is a middle-aged male up in the room in no distress. HEENT examination: examination of the oral cavity. Did have slight irritation to the posterior larynx area. LUNGS: Unlabored breathing. Clear to auscultation. HEART: S1, S2. Regular rate and rhythm. Abdomen soft, no tenderness. LABORATORY DATA: Hemoglobin 13.1, white count 9.3, BUN of 6, creatinine 0.9. Sedimentation rate and CRP has been normal. DIAGNOSTIC IMPRESSION AND PLAN: Patient admitted to the hospital with a sore throat, more likely traumatic from a small piece of turkey bone that he swallowed and tried to cough it up resulting in irritation. Clinically not behaving as a viral or bacterial infection. No need for any systemic antibiotic therapy. Treatment is mostly supportive. MMODL / IJN: [id number] /
--- NOTE | 2020-12-11 13:01 | CDI ---
Documentation Clarification Form Date: 12/11/2020 12:27:57 PM From: Jennifer Whatley RN CCDS Admit Date: 12/10/2020 04:16:00 PM Patient Name: Ghanshyam Jarrell Visit Number: [id number] Discharge Date: ATTENTION: The Clinical Documentation Specialists (CDI) and [facility] Coding Staff appreciate your assistance in clarifying documentation. Please respond to the clarification below the line at the bottom and electronically sign. The CDI & [facility] Coding staff will review the response and follow-up if needed. Please note: Queries are made part of the Legal Health Record. If you have any questions, please contact the author of this message via ITS. Dr. Zulma Lindo The patient presented with the following clinical indicators. Additional clarification regarding the etiology/cause of the clinical indicators is requested. History/Risk Factors: 45-year-old male presents to the ED with not feeling well over the past few days starting with vomiting blood then a sore throat and neck pain. Medical History: Asthma; HTN; Anxiety and depression. H&P 12/09 Clinical Indicators: H&P: 10 Significant upper respiratory infection, rule out sepsis with bacterial or viral pharyngitis WBC: 12/08 5.2 Vitals signs: 12/08 B/P 170/104; HR 87; Temp 99.1 F Oral; RR 18; SpO2 97% room air. Flexible nasopharyngeal laryngoscopy: 12/09 Left septal deviation at the midportion. Large uvula noted. Treatment: Consult ENT: Nausea and vomiting; Uvular edema; Hematemesis. Consult GI: Hematemesis; Suspicion for esophagitis or Lizbeth John tear; Nausea vomiting; Angioedema and Uvular edema. Antibiotics: 12/08 Ceftriaxone 2gm IVPB X1; 12/09 Ceftriaxone 2gm IVPB Q12HR In your professional opinion, please clarify if these findings signify one of the following conditions: [ ] Sepsis POA [ ] Sepsis ruled out [ ] Other, please specify [ ] Unable to determine SIRS Criteria: 2 or more of the following may indicate SIRS -Temperature < 96.8F (36C) or > 101.0F (38.3C) -Heart Rate > 90 bpm -Respiratory Rate > 20 breaths/min or PaCO2 < 32 mmHg -White Blood Cell Count > 12,000 or < 4,000 cells/mm3 or > 10% bands (Template Last Reviewed: September 2020) Sepsis ruled out MTDD
--- NOTE | 2020-12-11 13:05 | P.PN ---
Subjective Progress Note Date: 12/11/20 Principal diagnosis: Hematemesis Should seen and examined sitting up at the bedside crying. He states that he feels very anxious, shaky, and just wants to be with his family. If he feels his swallowing has improved as well as the swelling. He denies any further nausea or vomiting, denies any hematemesis or abdominal pain. Denies any stool or blood from the rectum. Objective - Vital Signs Vital signs: Vital Signs Temp 98.1 F 12/11/20 07:00 Pulse 78 12/11/20 07:36 Resp 16 12/11/20 07:00 BP 151/81 12/11/20 07:00 Pulse Ox 93 L 12/11/20 02:00 Intake & Output 12/10/20 12/11/20 12/11/20 18:59 06:59 18:59 Intake Total 598 875 Output Total 1 1 Balance 597 874 Intake: Intake, IV Titration 875 Amount Sodium Chloride 0.9% 1, 775 000 ml @ 75 mls/hr IV . [id number] [facility] Rx#:[id number] cefTRIAXone 2 gm In 100 Sodium Chloride 0.9% 50 ml @ 100 mls/hr IVPB Q12HR [facility] Rx#:[id number] Oral 598 Output: Urine 1 1 Other: Voiding Method Toilet Toilet Urinal Urinal # Voids 3 - Exam General appearance: The patient is alert, oriented, appears in no acute distress. HET: Head is normocephalic and atraumatic. Conjunctiva pink. Sclera anicteric. No lesions, tongue midline. Neck: Supple without lymphadenopathy. Abdomen: Soft, obese, nontender, nondistended with bowel sounds. No guarding or rigidity. Extremities: Normal skin color and turgor. No pedal edema Skin: No rashes, no jaundice Neurological: No focal deficits. Alert and oriented 3. - Labs CBC & Chem 7: 12/11/20 06:26 12/10/20 05:26 Labs: Abnormal Lab Results - Last 24 Hours (Table) 12/10/20 12/10/20 12/10/20 Range/Units 05: 11:47 17:00 BUN 6.0 L (9.0-27.0) mg/dL BUN/Creatinine Ratio 6.67 L (12.00-20.00) Ratio POC Glucose (mg/dL) 125 H 139 H (75-99) mg/dL 12/11/20 12/11/20 Range/Units 04:23 07:51 BUN (9.0-27.0) mg/dL BUN/Creatinine Ratio (12.00-20.00) Ratio POC Glucose (mg/dL) 159 H 136 H (75-99) mg/dL Assessment and Plan (1) Hematemesis Narrative/Plan: This is a 45-year-old male multiple medical comorbidities presenting to the hospital for fullness of the throat and soreness with episodes of nausea and vomiting with some hematemesis noted. No prior episodes of hematemesis or GI bleeding. He denies any history of peptic ulcer disease. No further episodes of hematemesis since presentation with a normal hemoglobin of 15.6. The episode occurred after retching with some streaking of blood noted in his vomitus. Suspicion is for esophagitis or Lizbeth-John tear with no further bleeding since presentation. Given patient's current compromise airway do not recommend endoscopic evaluation but will proceed with conservative medical management which is been explained to the patient at length and for which he agrees with the treatment plan with all of this questions answered at length to his satisfaction. Current Visit: Yes Status: Acute Code(s): K92.0 - HEMATEMESIS SNOMED Code(s): 7850910 (2) Nausea & vomiting Narrative/Plan: Resolved Current Visit: Yes Status: Acute Code(s): R11.2 - NAUSEA WITH VOMITING, UNSPECIFIED SNOMED Code(s): 17263077 (3) Angioedema Narrative/Plan: ENT following, patient underwent flexible nasopharyngeal laryngoscopy Current Visit: Yes Status: Acute Code(s): T78.3XXA - ANGIONEUROTIC EDEMA, INITIAL ENCOUNTER SNOMED Code(s): 40926020 (4) Uvular edema Current Visit: Yes Status: Acute Code(s): K13.79 - OTHER LESIONS OF ORAL MUCOSA SNOMED Code(s): 492228506 Plan: 1. Continue symptomatic and supportive care 2. Advance to regular diet 3. Infectious disease and ENT on consult 4. Continue Protonix therapy 5. Avoid NSAID use 6. Continue to monitor hemoglobin and hematocrit 7. Alcohol cessation 8. CIWA protocal It has been discussed with patient risks outweighing benefits of proceeding with EGD. Given patient's current compromised airway we do not recommend endoscopic evaluation but will proceed with conservative medical management which is been explained to the patient at length and for which he agrees with the treatment plan with all of this questions answered at length to his satisfaction. We will continue to monitor symptoms, if he has significant drop in hemoglobin or return of hematemesis will consider endoscopic evaluation if evaluated and cleared by anesthesia. Thank you for this consultation, we will continue to follow. Dr. Montesinos I agree with the dictator's note, documented as a scribe by Rufina Dangelo.
[2020-12-11] MEDS: methylPREDNISolone SOD SUCCI 40 MG/ML 1 ML VIAL IV SCH ×2 (16:27→23:53)
[2020-12-11 17:29] LABS: Glucose,Whole Blood 130 mg/dL (75-99)
--- NOTE | 2020-12-11 18:37 | PN ---
PROGRESS NOTE DATE OF SERVICE: 12/11/2020 This 45-year-old gentleman who was admitted with significant uvular swelling also had history of GI bleed. The patient was apparently going through some withdrawals also. No chest pain. No palpitations. No fever. PHYSICAL EXAMINATION: Alert and oriented x3. Pulse 101, blood pressure 130/65, respiration 17, temperature 98.4, pulse ox 94% on room air. HEENT: Conjunctivae normal. NECK: No jugular venous distention. CARDIOVASCULAR SYSTEM: S1, S2 muffled. RESPIRATORY SYSTEM: Breath sounds diminished at the bases. No rhonchi. No crackles. ABDOMEN: Soft. NERVOUS SYSTEM: No focal deficit. LEGS: Examination revealed swelling is less, but some minimal ecchymosis is present. LABS: Accu-Cheks 159, 136 and 136. CBC noted. ASSESSMENT: 1. Vomiting and acute hematemesis with acute upper gastrointestinal bleeding. 2. Upper respiratory infection, possible viral infection with significant uvular swelling as well as edema. 3. Hyponatremia. 4. History of ETOH. 5. History of asthma. 6. Hypertension. 7. Mild EtOH withdrawal symptoms. 8. Hyperlipidemia. 9. Chronic back pain and neck pain. 10.History of degenerative joint disease. 11.Cervical fusion history. 12.Anxiety, depression, post-traumatic stress disorder. 13.History of nicotine dependence. 14.Obesity with body mass index of 39.6. 15.FULL CODE. RECOMMENDATIONS AND DISCUSSION: I recommend to continue current medications, continue with the monitoring, symptomatic treatment. I recommend continuing with IV steroids. Repeat labs in the morning. Otherwise, I would also recommend testing for Etienne-Whatley virus. Prognosis guarded. Further recommendations to follow. Cut down the IV steroids. MMODL / IJN: [id number] /
[2020-12-11] MEDS: ALPRAZolam 0.25 MG TAB PO PRN (19:46)
[2020-12-11 20:36] LABS: Glucose,Whole Blood 146 mg/dL (75-99)
[2020-12-12 00:23] LABS: EBV-EA (IgG) 0.2 AI; EBV-EBNA(IgG) <0.2 AI; EBV-VCA (IgG) >8.0 AI
[2020-12-12 00:42] LABS: EBV-VCA (IgM) <0.2 AI
[2020-12-12] MEDS: MORPHINE SULFATE 4 MG/ML SYRINGE IV PRN ×2 (03:47→08:27)
[2020-12-12] MEDS: HYDROcodone/APAP 5-325MG 1 EACH TAB PO PRN (05:26)
[2020-12-12 07:12] LABS: Glucose,Whole Blood 127 mg/dL (75-99)
[2020-12-12] MEDS: ALBUTEROL NEBULIZED 2.5 MG/3 ML INHALATION SCH (07:31)
[2020-12-12 07:47] VITALS: BP 137/81; PULSE 64; RESP 18; TEMP 97.8
[2020-12-12] MEDS: methylPREDNISolone SOD SUCCI 40 MG/ML 1 ML VIAL IV SCH (08:27)
[2020-12-12] MEDS: PANTOPRAZOLE 40 MG/10 ML VIAL IVP SCH (08:27)
[2020-12-12] MEDS: HEPARIN SODIUM,PORCINE/PF 5,000 UNIT/0.5 ML SYRINGE SQ SCH (08:28)
[2020-12-12 11:59] LABS: Glucose,Whole Blood 126 mg/dL (75-99)
--- NOTE | 2020-12-12 12:37 | PN ---
PROGRESS NOTE DATE OF SERVICE: 12/12/2020. REASON FOR FOLLOWUP: Pharyngitis, possibly traumatic. INTERVAL HISTORY: Patient is currently afebrile. The patient is breathing comfortably. The patient did mention overall improvement in the sore throat. Denies any difficulty swallowing. No difficulty breathing. No chest pain, shortness of breath or cough. No abdominal pain. No diarrhea. PHYSICAL EXAMINATION: VITAL SIGNS: Blood pressure 137/81 with pulse of 54, temperature 97.8, he is 96% on room air GENERAL DESCRIPTION: A middle-aged male up in the room in no distress. HEENT: Irritation to the posterior pharynx is slightly decreased. RESPIRATORY SYSTEM: Unlabored breathing, clear to auscultation anteriorly. HEART: S1, S2. Regular rate and rhythm. ABDOMEN: Soft, no tenderness. EXTREMITIES: No edema of the feet. LABS: No new labs have been obtained today. Throat culture has been negative. DIAGNOSTIC IMPRESSION: Patient with irritation to the throat, likely from a foreign body in this patient who does have a history of a piece of turkey bone that seemed to be stuck with meat with significant irritation of the area. Clinically not behaving as bacterial or viral pharyngitis. Continue with mostly supportive and symptomatic care. No need for systemic antibiotic therapy. MMODL / IJN: [id number] /
--- NOTE | 2020-12-12 16:26 | P.DS ---
Providers Date of admission: 12/10/20 16:16 Expected date of discharge: 12/12/20 Attending physician: Zulma Lindo Consults: 12/09/20 01:12 Consult Physician Routine Consulting Provider: Naeem Tobar Consult Reason/Comments: uvula angioEdema Do you want consulting provider notified?: Yes 12/09/20 13:27 Consult Physician Routine Consulting Provider: Jonathan Mcneill Consult Reason/Comments: URI, viral pharyngitis, abscess? Do you want consulting provider notified?: Yes 12/10/20 15:08 Consult Physician Routine Consulting Provider: Rustam Riley Consult Reason/Comments: stridor? uvular swelling improving Do you want consulting provider notified?: Yes Primary care physician: Valery Russell Hospital Course: Final diagnosis Vomiting and acute hematemesis with acute upper GI bleeding Upper respiratory infection, possible viral infection with significant uvular swelling as well as edema Sepsis, ruled out Hyponatremia of EtOH History of asthma Hypertension Mild EtOH withdrawal symptoms Hyperlipidemia Chronic back pain and neck pain History of degenerative joint disease Cervical fusion history Anxiety, depression, posttraumatic stress disorder History of nicotine dependence Obesity with a BMI of 39.6 Full code Discharge disposition Patient is being discharged in a stable condition with guarded prognosis to home. Patient will follow-up with Dr. Russell upon discharge. Patient will continue on oral antibiotics in the form of Ceftin 500 mg twice daily for the next 3 days to complete the course along with a prednisone taper upon discharge. Total time taken is greater than 35 minutes. Hospital course This is a 45-year-old male who was recently admitted with significant uvular swelling also history of GI bleed and was being closely monitored. Patient was also known for EtOH and undergoing acute withdrawals and was maintained on CIWA protocol. Multiple medical consultations evaluating the patient during hospitalization. Patient was on IV antibiotics and evaluated by infectious disease. Patient will continue on oral Ceftin 500 mg twice daily for the next 3 days to complete the course. Prescription provided for repeat labs to monitor kidney functions. Patient was taking lisinopril which has been discontinued and instructed the patient to continue to monitor blood pressures closely and follow-up with primary care provider this week. Recommend continue soft diet secondary to uvular irritation. Slowly advance as tolerated in the outpatient setting. Currently no reports of chest pain, shortness of breath, or palpitations. Patient is afebrile. No reports of nausea or vomiting and patient is tolerating diet. Patient will be discharged home today. Guarded prognosis. On exam vital signs are stable. Cardio S1, S2 are muffled. Respiratory shows diminished breath sounds at the bases with no wheezing or rhonchi noted. Abdomen is soft and nontender. Nervous system shows no focal deficits. Please refer to medication reconciliation sheet for a list of medications. Patient Condition at Discharge: Stable Plan - Discharge Summary Discharge Rx Participant: Yes New Discharge Prescriptions: New Cefuroxime Axetil [Ceftin] 500 mg PO BID 3 Days #6 tab HYDROcodone/APAP 5-325MG [[place] 5-325] 1 each PO Q6HR PRN #10 tab PRN Reason: Pain Thiamine [Vitamin B-1] 100 mg PO DAILY #30 tablet Folic Acid 1 mg PO DAILY #30 tablet Multivitamins, Thera [Multivitamin] 1 tab PO DAILY #30 tablet predniSONE 10 mg PO DIRECTED #30 tab Pantoprazole Sodium [Protonix] 40 mg PO DAILY #30 tablet.dr Continue Atorvastatin Calcium [Lipitor] 20 mg PO HS Discontinued lisinopriL [Lisinopril] 40 mg PO DAILY Discharge Medication List Atorvastatin Calcium [Lipitor] 20 mg PO HS 12/09/20 [History] Cefuroxime Axetil [Ceftin] 500 mg PO BID 3 Days #6 tab 12/12/20 [Rx] Folic Acid 1 mg PO DAILY #30 tablet 12/12/20 [Rx] HYDROcodone/APAP 5-325MG [[place] 5-325] 1 each PO Q6HR PRN #10 tab 12/12/20 [Rx] Multivitamins, Thera [Multivitamin] 1 tab PO DAILY #30 tablet 12/12/20 [Rx] Pantoprazole Sodium [Protonix] 40 mg PO DAILY #30 tablet. 12/12/20 [Rx] Thiamine [Vitamin B-1] 100 mg PO DAILY #30 tablet 12/12/20 [Rx] predniSONE 10 mg PO DIRECTED #30 tab 12/12/20 [Rx] Follow up Appointment(s)/Referral(s): Valery Russell MD [Primary Care Provider] - 1-2 days Ambulatory/Diagnostic Orders: Complete Blood Count w/diff [LAB.AMB] Time Frame: 2 Days, Location: None Selected Patient Instructions/Handouts: Gastrointestinal Bleeding (GEN), Uvulitis (GEN) Activity/Diet/Wound Care/Special Instructions: Activity Limited until follow-up Follow-up with primary care provider upon discharge Repeat labs in 2-3 days to monitor kidney functions Monitor blood pressure daily and keep a diary for primary care follow-up Continue to hold lisinopril Continue with antibiotics until finished Discharge Disposition: HOME SELF-CARE
--- NOTE | 2020-12-13 15:54 | P.CONS ---
History of Present Illness - Reason for Consult Consult date: 12/10/20 Viral pharyngitis/abscess Requesting physician: Zulma Lindo - Chief Complaint Sore throat x few days - History of Present Illness Patient is a 45-year-old male presenting to [facility] ER for evaluation of nausea vomiting hematemesis and sore throat patients are going for a day before presentation to the hospital, patient did mention ate turkey sandwich and apparently there was small piece of bone in the meat that may have stuck in his throat area causing the irritation after medication and multiple moment he was unable to recover the piece of the wound, patient complaining of some sore throat intensity for 5-10 and no radiation denies any difficulty swallowing or difficulty breathing, the patient denies having any fever or any chills, on presentation to the hospital the patient did have a CT of the soft tissue of the neck we did shows thickening of the soft palate and uvula probably related to inflammatory disease no enlargement of the tonsils patient did have a normal white count and no fever patient was started on Rocephin akash ignacio was consulted with concern for possible viral/bacterial pharyngitis and concern for abscess Review of Systems Positive point has been mentioned in the HPI rest of the systems are negative Past Medical History Past Medical History: Asthma, Hyperlipidemia, Hypertension Additional Past Medical History / Comment(s): chronic back and neck pain History of Any Multi-Drug Resistant Organisms: None Reported Past Surgical History: Back Surgery Additional Past Surgical History / Comment(s): cervical fusion, DECOMPRESSION, TOOTH EXTRACTION Past Anesthesia/Blood Transfusion Reactions: No Reported Reaction Past Psychological History: Anxiety, Depression, PTSD Additional Psychological History / Comment(s): STATES GOING TO BEGIN INTAKE PROCESS WITH [facility], NOT CURRENTLY TAKING ANY MEDS Smoking Status: Former smoker Past Alcohol Use History: None Reported Additional Past Alcohol Use History / Comment(s): Pt stated he used alcohol to manage mental health symptoms. Past Drug Use History: None Reported Additional Drug Use History / Comment(s): Denies. Medications and Allergies Home Medications Medication Instructions Recorded Confirmed Type Atorvastatin Calcium [Lipitor] 20 mg PO HS 12/09/20 12/09/20 History Cefuroxime Axetil [Ceftin] 500 mg PO BID 3 Days #6 tab 12/12/20 Rx Folic Acid 1 mg PO DAILY #30 tablet 12/12/20 Rx HYDROcodone/APAP 5-325MG [[place] 1 each PO Q6HR PRN #10 tab 12/12/20 Rx 5-325] Multivitamins, Thera [Multivitamin] 1 tab PO DAILY #30 tablet 12/12/20 Rx Pantoprazole Sodium [Protonix] 40 mg PO DAILY #30 tablet. 12/12/20 Rx Thiamine [Vitamin B-1] 100 mg PO DAILY #30 tablet 12/12/20 Rx predniSONE 10 mg PO DIRECTED #30 tab 12/12/20 Rx Allergies Allergy/AdvReac Type Severity Reaction Status Date / Time amoxicillin Allergy Anaphylaxis Verified 12/09/20 06:59 ciprofloxacin [From Cipro] Allergy Anaphylaxis Verified 12/09/20 06:59 haloperidol Allergy Anaphylaxis Verified 12/09/20 06:59 ziprasidone Allergy Unknown Verified 12/09/20 06:59 Physical Exam Vitals: Vital Signs Temp Pulse Resp BP Pulse Ox 12/10/20 07:00 98.1 F 84 17 148/87 12/10/20 02:00 18 12/10/20 01:17 97.9 F 79 18 147/78 96 12/09/20 19:55 97 18 12/09/20 19:42 98.1 F 88 20 159/82 95 12/09/20 15:00 97.5 F L 97 20 143/93 97 12/09/20 13:24 84 18 Intake and Output 12/09/20 12/10/20 12/10/20 22:59 06:59 14:59 Intake Total 900 300 Balance 900 300 Intake: Intake, IV Titration 900 Amount Sodium Chloride 0.9% 1, 900 000 ml @ 75 mls/hr IV . [id number] [facility] Rx#:[id number] Oral 300 Other: Voiding Method Toilet Urinal # Voids 2 2 GENERAL DESCRIPTION: Middle-aged male lying in bed, no distress. No tachypnea or accessory muscle of respiration use. HEENT: Shows Pallor , no scleral icterus. Oral mucous membrane is dry. Mild pharyngeal erythema and area of irritation noticed on the posterior pharynx NECK: Trachea central, no thyromegaly. LUNGS: Unlabored breathing. Clear to auscultation anteriorly. No wheeze or crackle. HEART: S1, S2, regular rate and rhythm. No loud murmur ABDOMEN: Soft, no tenderness , guarding or rigidity, no organomegaly EXTREMITIES: No edema of feet. SKIN: No rash, no masses palpable. NEUROLOGICAL: The patient is awake, alert, oriented x3, mood and affect normal. Results CBC & Chem 7: 12/11/20 06:26 12/10/20 05:26 Labs: Abnormal Lab Results - Last 24 Hours (Table) 12/09/20 12/09/20 12/10/20 Range/Units 14:00 15:50 05:26 Carbon Dioxide 21 L (22-30) mmol/L BUN 5 L 7.0 L 6.0 L (9-20) mg/dL BUN/Creatinine Ratio 6.36 L 6.67 L (12.00-20.00) Ratio Glucose 130 H 127 H (74-99) mg/dL AST 37 H (14-35) U/L Albumin 5.00 H (3.80-4.90) g/dL Microbiology - Last 24 Hours (Table) 12/08/20 23:52 Group A Strep Throat Culture - Preliminary Throat Assessment and Plan Assessment: 1-patient presented to hospital with sore throat and did have multiple episodes of emesis possibly related to irritation from the small piece of turkey boned that got stuck in the pharynx with resultant irritation of the area in this patient with no fever or elevated white count clinically doubt bacterial or viral pharyngitis and clinically not behaving as an abscess (1) Pharyngitis Status: Acute Code(s): J02.9 - ACUTE PHARYNGITIS, UNSPECIFIED SNOMED Code(s): 818031451 Plan: 1- treatment should be supportive with Cepacol lozenges and symptomatic treatment 2-no need for antibiotics or antiviral We will follow on clinical condition and cultures to further adjust medication if needed Thank you for this consultation will follow this patient with you Time with Patient: Greater than 30
== END 2020-12-12 12:15 | disposition home or self-care (01) | DRG 378 ==
LOC: EC 22:13 → 6NMEDSUR 12-09 01:14 → OBSVTOIN 12-10 16:16
PROVIDERS: ADMIT Hospitalist; ATTEND Hospitalist
PROC: 0CJS8ZZ Inspection of Larynx, Via Natural or Artificial Opening Endoscopic (ICD-10-PCS; principal; 2020-12-09)
DX: K92.0 Hematemesis (principal); E87.1 Hypo-osmolality and hyponatremia; F10.239 Alcohol dependence with withdrawal, unspecified; E66.9 Obesity, unspecified; E78.5 Hyperlipidemia, unspecified; F20.9 Schizophrenia, unspecified; F32.9 Major depressive disorder, single episode, unspecified; F43.10 Post-traumatic stress disorder, unspecified; G89.29 Other chronic pain; I10 Essential (primary) hypertension; J34.2 Deviated nasal septum; J45.909 Unspecified asthma, uncomplicated; T78.3XXA Angioneurotic edema, initial encounter; Z68.39 Body mass index [BMI] 39.0-39.9, adult; Z79.899 Other long term (current) drug therapy; Z87.891 Personal history of nicotine dependence; T46.4X5A Adverse effect of angiotensin-converting-enzyme inhibitors, initial encounter; Z20.822 Contact with and (suspected) exposure to COVID-19; Z88.1 Allergy status to other antibiotic agents; Z88.0 Allergy status to penicillin; Z91.09 Other allergy status, other than to drugs and biological substances
CPT/HCPCS: 36415; 70491; 71045; 80048; 80053; 83690; 83735; 84145; 84484; 85025; 85027; 85379; 85610; 85652; 85730; 86140; 86308; 86663; 86664; 86665; 86850; 86900; 86901; 87081; 87430; 87502; 87635; 94640; 96361; 96365; 96374; 96375; 99285; 99291

== ENCOUNTER → 2020-12-17 | Outpatient (CLI) | payer OTHER ==
[2020-12-17 15:29] LABS: Basophils # (A) 0.07 X 10*3/uL (0.00-0.10); Basophils % (A) 1.5 %; Eosinophils # (A) 0.13 X 10*3/uL (0.04-0.35); Eosinophils % (A) 2.8 %; HCT 44.2 % (39.6-50.0); HGB 15.4 g/dL (13.0-17.0); Lymphocytes # (A) 1.59 X 10*3/uL (0.90-5.00); Lymphocytes % (A) 33.9 %; MCH 30.4 pg (27.0-32.0); MCHC 34.8 g/dL (32.0-37.0); MCV 87.4 fL (80.0-97.0); Mean Platelet Volume 9.4 fL (9.5-12.2); Monocytes # (A) 0.57 X 10*3/uL (0.20-1.00); Monocytes % (A) 12.2 %; Neutrophils # (A) 2.16 X 10*3/uL (1.80-7.70); Platelet Count 208 X 10*3/uL (140-440); RBC 5.06 X 10*6/uL (4.40-5.60); RDW 13.9 % (11.5-14.5); WBC 4.69 X 10*3/uL (4.50-10.00)
[2020-12-17 18:18] LABS: African American GFR (CKD) 104.9 (60.0-200.0); Anion Gap 14.4 mmol/L (4.00-12.00); Calcium 9.4 mg/dL (8.7-10.3); Carbon Dioxide 24.6 mmol/L (21.6-31.8); Non-African American GFR(CKD) 90.5 (60.0-200.0); Potassium 3.6 mmol/L (3.5-5.5)
== END | disposition home or self-care (01) ==
LOC: LABWHC1 09:28
PROVIDERS: ATTEND Registered Nurse
DX: R79.89 Other specified abnormal findings of blood chemistry (principal)
CPT/HCPCS: 36415; 80048; 85025

== ENCOUNTER 2021-12-29 20:10 | Inpatient (IN) | payer OTHER ==
[2021-12-29] MEDS ORDERED: SODIUM CHLORIDE 0.9% 1,000 ML IV STA ×3 (20:14→22:00)
[2021-12-29] MEDS ORDERED: SODIUM CHLORIDE 0.9% 500 ML 500 ML IV STA (20:14)
[2021-12-29] MEDS ORDERED: DEXTROSE 5% IN WATER 250 ML with AMIODARONE 300 MG IV ONE (20:17)
[2021-12-29] MEDS ORDERED: DEXTROSE 5% IN WATER 100 ML with AMIODARONE 150 MG IV ONE (20:17)
[2021-12-29] MEDS ORDERED: AMIODARONE 360 MG in DEXTROSE 5% IN WATER 200 ML IV ONE ×2 (20:20)
[2021-12-29] MEDS ORDERED: SUCCINYLCHOLINE CHLORIDE VIAL 200 MG/10 ML VIAL IV STA (20:30)
[2021-12-29] MEDS ORDERED: ETOMIDATE 2 MG/ML 10 ML VIAL IVP STA (20:31)
[2021-12-29 20:34] LABS: Basophils # (A) 0.1 k/uL (0-0.2); Basophils % (A) 1 %; Eosinophils # (A) 0.2 k/uL (0-0.7); Eosinophils % (A) 2 %; HCT 49.2 % (39.0-53.0); HGB 15.4 gm/dL (13.0-17.5); Lymphocytes # (A) 3.9 k/uL (1.0-4.8); Lymphocytes % (A) 46 %; MCH 29.4 pg (25.0-35.0); MCHC 31.3 g/dL (31.0-37.0); Mean Platelet Volume 7.7; Monocytes # (A) 0.4 k/uL (0-1.0); Monocytes % (A) 5 %; Neutrophils # (A) 3.8 k/uL (1.3-7.7); Neutrophils % (A) 44 %; Platelet Count 277 k/uL (150-450); RBC 5.24 m/uL (4.30-5.90); WBC 8.7 k/uL (3.8-10.6)
--- NOTE | 2021-12-29 20:42 | ED ---
General Adult HPI <Uri Sifuentes - Last Filed: 12/29/21 20:42> - General Source: EMS Mode of arrival: EMS Limitations: no limitations <Rohit Beckett - Last Filed: 12/29/21 23:40> - General Stated complaint: Cardiac Arrest Time Seen by Provider: 12/29/21 20:14 - History of Present Illness Initial comments: This 46-year-old male apparently had a witnessed arrest at his home. He was brought in by EMS. He apparently lost vital signs and underwent CPR and multiple doses of epinephrine. EMS was able to get return of vital signs. They did place a Froilan tube in for airway protection. Patient did not receive defibrillation's. EMS states that the time from the patient initially collapsing to him coming into the emergency department is approximately one hour. History from EMS also relates the patient does drink a significant amount of alcohol. There is a half empty fifth of alcohol at the house and he apparently was drinking today. EMS gave him some Narcan without any change in condition. They apparently got vital signs back approximately 10+ minutes prior to arrival. Patient's brother later does arrive and states that the patient does have a long history of alcohol abuse. He is unsure how much she drinks per day. He apparently had been clean from alcohol for quite some time but started drinking again recently. Brother relates that there is a significant amount of empty alcohol bottles in the house. Mother also relates a psychiatric history but denies any other known medical problems. He denies knowing about any previous syncopal episodes. His far as his brother knows the patient is a full code. (Rohit Beckett) - Related Data Home Medications Medication Instructions Recorded Confirmed No Known Home Medications 12/29/21 12/29/21 Allergies Allergy/AdvReac Type Severity Reaction Status Date / Time amoxicillin Allergy Anaphylaxis Verified 12/29/21 21:17 ciprofloxacin [From Cipro] Allergy Anaphylaxis Verified 12/29/21 21:17 haloperidol Allergy Anaphylaxis Verified 12/29/21 21:17 ziprasidone Allergy Unknown Verified 12/29/21 21:17 Review of Systems ROS Other: All systems not noted in ROS Statement are negative. <Uri Sifuentes - Last Filed: 12/29/21 20:42> ROS Other: All systems not noted in ROS Statement are negative. <Rohit Beckett - Last Filed: 12/29/21 23:40> ROS Statement: Those systems with pertinent positive or pertinent negative responses have been documented in the HPI. Past Medical History Past Medical History: Asthma, Hyperlipidemia, Hypertension Additional Past Medical History / Comment(s): chronic back and neck pain History of Any Multi-Drug Resistant Organisms: None Reported Past Surgical History: Back Surgery Additional Past Surgical History / Comment(s): cervical fusion, DECOMPRESSION, TOOTH EXTRACTION Past Anesthesia/Blood Transfusion Reactions: No Reported Reaction Past Psychological History: Anxiety, Depression, PTSD Smoking Status: Former smoker Past Alcohol Use History: None Reported Past Drug Use History: None Reported <SophyJose De Jesus - Last Filed: 12/29/21 23:40> General Exam Limitations: no limitations General appearance: obese, other (Patient is unconscious) Head exam: Present: atraumatic, normocephalic Eye exam: Present: other (Pupils are fixed at approximate 4 mm.) ENT exam: Present: normal exam Neck exam: Present: normal inspection Respiratory exam: Present: normal lung sounds bilaterally Cardiovascular Exam: Present: regular rate, normal rhythm. Absent: systolic murmur, diastolic murmur GI/Abdominal exam: Present: distended Extremities exam: Present: normal inspection, normal capillary refill. Absent: pedal edema Neurological exam: Present: other (Patient is unconscious upon arrival and throughout ER course. His pupils are fixed at approximately 4 mm. Later on in ER course he is having some myoclonic jerking.) Skin exam: Present: intact. Absent: rash <Rohti Beckett - Last Filed: 12/29/21 23:40> Course Vital Signs 12/29/21 12/29/21 12/29/21 20:15 20:28 20:40 Pulse Rate 146 H 89 Respiratory 14 14 Rate Blood Pressure 148/106 210/116 O2 Sat by Pulse 89 L 89 L Oximetry Fraction of 100 Inspired Oxygen (FIO2) 12/29/21 12/29/21 12/29/21 20:45 21:03 21:08 Pulse Rate 91 92 Respiratory 16 16 Rate Blood Pressure 189/100 129/76 O2 Sat by Pulse 93 L 93 L Oximetry Fraction of 100 Inspired Oxygen (FIO2) 12/29/21 12/29/21 12/29/21 21:32 21:45 21:47 Pulse Rate 96 96 Respiratory 16 20 28 H Rate Blood Pressure 111/53 114/49 O2 Sat by Pulse 90 L 91 L 92 L Oximetry Fraction of Inspired Oxygen (FIO2) 12/29/21 12/29/21 12/29/21 22:00 22:25 22:30 Pulse Rate 98 99 97 Respiratory 28 H 28 H 28 H Rate Blood Pressure 121/45 112/52 120/60 O2 Sat by Pulse 92 L 92 L 94 L Oximetry Fraction of Inspired Oxygen (FIO2) 12/29/21 23:00 Pulse Rate 90 Respiratory 28 H Rate Blood Pressure 125/63 O2 Sat by Pulse 94 L Oximetry Fraction of Inspired Oxygen (FIO2) Procedures - Intubation Sedative: Etomidate Mg Given: 20 Paralytic: Succinylcholine Mg Given: 100 Laryngoscope: other (glidescope) Size: 4 ET Tube Size: 7.5 Tube Secured Depth (cm): 26 Tube Secured Location: lips Tube Placement Confirmation: visualized tube passing through cords, equal breath sounds bilaterally, no breath sounds over epigastrium, confirmation by capnometry Patient Tolerated Procedure: well Intubation Complications: difficult intubation <Uri Sifuentes - Last Filed: 12/29/21 20:42> - Intubation Additional Comments: Swapped Froilan Tube for ETT. Initial attempt mildly difficult due to tongue size. Succeeded on 2nd attempt. (Uri Sifuentes) Medical Decision Making - Lab Data Result diagrams: 12/29/21 20:27 12/29/21 20:27 <Rohit Beckett - Last Filed: 12/29/21 23:40> - Medical Decision Making This 46-year-old male presents as priority 1 medical from EMS. He was seen immediately upon arrival. EMS does relate return of vitals after fourth epinephrine approximately 10 minutes prior to arrival. They did place a Froilan tube in his airway and this is been functioning well. Patient is placed on a ca rdiac monitor and vitals appear to be stable. The EKG was done and shows a normal sinus rhythm at a rate of 97. There is some nonspecific ST-T wave changes noted diffusely but no evidence of ST elevation or acute myocardial infarction. The LA interval is 168, QRS duration is 81, and the QTc interval is 328. It is felt as though patient would require changing of his Froilan tube to an endotracheal tube. Upon removal of the Froilan tube, patient is breathing spontaneously and therefore he was sedated. He receives 100 mg of succinylcholine and 20 mg of etomidate. Initial attempt with the kaleidoscope was unsuccessful. 2 additional times with a Mac blade were also unsuccessful. [id number] ventilation was continued and airway was obtained by Dr. Sifuentes. Please see his report for details. The chest x-ray shows that the tube is in the right mainstem bronchus by 1.6 cm. The tube was pulled back 2.5 cm. Breath sounds are equal bilaterally. He did have runs of V. tach upon initial arrival and therefore is placed on amiodarone intravenously. Normal sinus rhythm is further noted on the cardiac exercise specialist. Laboratory does come back showing significant elevation of his alcohol level at 331. His potassium is slightly low. This is replaced. He receives IV fluids as well. The patient was biting on his endotracheal tube and therefore was given propofol for sedation. Troponin is negative. The cause of his syncope is not definitively determined and patient is unable to give any history. D-dimer was done for possibility of pulmonary embolism this comes back positive. CT angiogram of the chest as well as computed tomography scan of brain is ordered. Case is discussed with Dr. Hayes from ICU and additional recommendations are given. His blood gases reviewed which shows a pH of 7.07, pCO2 of 54, pO2 96, and bicarb of 16. His respiratory rate was increased from 16 to 28. His brother nephew do later show up and they are informed of his condition. It is felt as though the patient is critically ill and has a guarded prognosis. Approximately 60 minutes of critical care time is utilized and the treatment of the patient and this does not include time necessary for procedures. The CT of the chest does not show any evidence of pulmonary embolism. It does show evidence of bilateral lower lung infiltrates. The patient does have multiple ALLERGIES and also interaction between Cordarone and propofol and therefore he is started on Rocephin and vancomycin. The computed tomography scan of the brain does show some cerebral edema. This apparently is a change from previous exam. Patient does have some myoclonic jerking upon light stimulus. He is started on Keppra for seizure prophylaxis. Patient is admitted to the intensive care unit for further treatment. (Rohit Beckett) - Lab Data Lab Results 12/29/21 12/29/21 12/29/21 Range/Units 20:27 20:27 20:27 WBC 8.7 (3.8-10.6) k/uL RBC 5.24 (4.30-5.90) m/uL Hgb 15.4 (13.0-17.5) gm/dL Hct 49.2 (39.0-53.0) % MCV 94.0 (80.0-100.0) fL MCH 29.4 (25.0-35.0) pg MCHC 31.3 (31.0-37.0) g/dL RDW 14.0 (11.5-15.5) % Plt Count 277 (150-450) k/uL MPV 7.7 Neutrophils % 44 % Lymphocytes % 46 % Monocytes % 5 % Eosinophils % 2 % Basophils % 1 % Neutrophils # 3.8 (1.3-7.7) k/uL Lymphocytes # 3.9 (1.0-4.8) k/uL Monocytes # 0.4 (0-1.0) k/uL Eosinophils # 0.2 (0-0.7) k/uL Basophils # 0.1 (0-0.2) k/uL PT 11.1 (9.0-12.0) sec INR 1.0 (<1.2) APTT 20.5 L (22.0-30.0) sec D-Dimer 2.05 H (<0.60) mg/L FEU Sample Site ABG pH (7.35-7.45) ABG pCO2 (35-45) mmHg ABG pO2 (83-108) mmHg ABG HCO3 (21-25) mmol/L ABG Total CO2 (19-24) mmol/L ABG O2 Saturation (94-97) % ABG Base Excess mmol/L Jared Test FiO2 % Sodium 143 (137-145) mmol/L Potassium 3.0 L (3.5-5.1) mmol/L Chloride 106 (98-107) mmol/L Carbon Dioxide 15 L (22-30) mmol/L Anion Gap 22 mmol/L BUN 8 L (9-20) mg/dL Creatinine 1.56 H (0.66-1.25) mg/dL Est GFR (CKD-EPI)AfAm 61 (>60 ml/min/1.73 sqM) Est GFR (CKD-EPI)NonAf 53 (>60 ml/min/1.73 sqM) Glucose 260 H (74-99) mg/dL Plasma Lactic Acid Jhony (0.7-2.0) mmol/L Calcium 8.3 L (8.4-10.2) mg/dL Magnesium 3.1 H (1.6-2.3) mg/dL Total Bilirubin 0.9 (0.2-1.3) mg/dL AST 159 H (17-59) U/L ALT 86 H (4-49) U/L Alkaline Phosphatase 49 (38-126) U/L Troponin I (0.000-0.034) ng/mL NT-Pro-B Natriuret Pep pg/mL Total Protein 6.8 (6.3-8.2) g/dL Albumin 4.6 (3.5-5.0) g/dL Lipase 204 (23-300) U/L Urine Color Urine Appearance (Clear) Urine pH (5.0-8.0) Ur Specific [place] (1.001-1.035) Urine Protein (Negative) Urine Glucose (UA) (Negative) Urine Ketones (Negative) Urine Blood (Negative) Urine Nitrite (Negative) Urine Bilirubin (Negative) Urine Urobilinogen (<2.0) mg/dL Ur Leukocyte Esterase (Negative) Urine RBC (0-5) /hpf Urine WBC (0-5) /hpf Amorphous Sediment (None) /hpf Urine Bacteria (None) /hpf Hyaline Casts (0-2) /lpf Urine Mucus (None) /hpf Salicylates <1.0 mg/dL Acetaminophen <10.0 ug/mL Serum Alcohol 331 H* mg/dL 12/29/21 12/29/21 12/29/21 Range/Units 20:27 20:27 20:55 WBC (3.8-10.6) k/uL RBC (4.30-5.90) m/uL Hgb (13.0-17.5) gm/dL Hct (39.0-53.0) % MCV (80.0-100.0) fL MCH (25.0-35.0) pg MCHC (31.0-37.0) g/dL RDW (11.5-15.5) % Plt Count (150-450) k/uL MPV Neutrophils % % Lymphocytes % % Monocytes % % Eosinophils % % Basophils % % Neutrophils # (1.3-7.7) k/uL Lymphocytes # (1.0-4.8) k/uL Monocytes # (0-1.0) k/uL Eosinophils # (0-0.7) k/uL Basophils # (0-0.2) k/uL PT (9.0-12.0) sec INR (<1.2) APTT (22.0-30.0) sec D-Dimer (<0.60) mg/L FEU Sample Site ABG pH (7.35-7.45) ABG pCO2 (35-45) mmHg ABG pO2 (83-108) mmHg ABG HCO3 (21-25) mmol/L ABG Total CO2 (19-24) mmol/L ABG O2 Saturation (94-97) % ABG Base Excess mmol/L Jared Test FiO2 % Sodium (137-145) mmol/L Potassium (3.5-5.1) mmol/L Chloride (98-107) mmol/L Carbon Dioxide (22-30) mmol/L Anion Gap mmol/L BUN (9-20) mg/dL Creatinine (0.66-1.25) mg/dL Est GFR (CKD-EPI)AfAm (>60 ml/min/1.73 sqM) Est GFR (CKD-EPI)NonAf (>60 ml/min/1.73 sqM) Glucose (74-99) mg/dL Plasma Lactic Acid Jhony (0.7-2.0) mmol/L Calcium (8.4-10.2) mg/dL Magnesium (1.6-2.3) mg/dL Total Bilirubin (0.2-1.3) mg/dL AST (17-59) U/L ALT (4-49) U/L Alkaline Phosphatase (38-126) U/L Troponin I <0.012 (0.000-0.034) ng/mL NT-Pro-B Natriuret Pep <11 pg/mL Total Protein (6.3-8.2) g/dL Albumin (3.5-5.0) g/dL Lipase (23-300) U/L Urine Color Light Yellow Urine Appearance Cloudy (Clear) Urine pH 6.5 (5.0-8.0) Ur Specific [place] 1.009 (1.001-1.035) Urine Protein 3+ H (Negative) Urine Glucose (UA) 3+ H (Negative) Urine Ketones Trace H (Negative) Urine Blood Large H (Negative) Urine Nitrite Negative (Negative) Urine Bilirubin Negative (Negative) Urine Urobilinogen <2.0 (<2.0) mg/dL Ur Leukocyte Esterase Negative (Negative) Urine RBC 121 H (0-5) /hpf Urine WBC 6 H (0-5) /hpf Amorphous Sediment Rare H (None) /hpf Urine Bacteria Rare H (None) /hpf Hyaline Casts 18 H (0-2) /lpf Urine Mucus Rare H (None) /hpf Salicylates mg/dL Acetaminophen ug/mL Serum Alcohol mg/dL 12/29/21 12/29/21 Range/Units 21:14 21:53 WBC (3.8-10.6) k/uL RBC (4.30-5.90) m/uL Hgb (13.0-17.5) gm/dL Hct (39.0-53.0) % MCV (80.0-100.0) fL MCH (25.0-35.0) pg MCHC (31.0-37.0) g/dL RDW (11.5-15.5) % Plt Count (150-450) k/uL MPV Neutrophils % % Lymphocytes % % Monocytes % % Eosinophils % % Basophils % % Neutrophils # (1.3-7.7) k/uL Lymphocytes # (1.0-4.8) k/uL Monocytes # (0-1.0) k/uL Eosinophils # (0-0.7) k/uL Basophils # (0-0.2) k/uL PT (9.0-12.0) sec INR (<1.2) APTT (22.0-30.0) sec D-Dimer (<0.60) mg/L FEU Sample Site left radial ABG pH 7.08 L* (7.35-7.45) ABG pCO2 54 H (35-45) mmHg ABG pO2 97 (83-108) mmHg ABG HCO3 16 L (21-25) mmol/L ABG Total CO2 18 L (19-24) mmol/L ABG O2 Saturation 93.3 L (94-97) % ABG Base Excess -14.1 mmol/L Jared Test Yes FiO2 100 % Sodium (137-145) mmol/L Potassium (3.5-5.1) mmol/L Chloride (98-107) mmol/L Carbon Dioxide (22-30) mmol/L Anion Gap mmol/L BUN (9-20) mg/dL Creatinine (0.66-1.25) mg/dL Est GFR (CKD-EPI)AfAm (>60 ml/min/1.73 sqM) Est GFR (CKD-EPI)NonAf (>60 ml/min/1.73 sqM) Glucose (74-99) mg/dL Plasma Lactic Acid Jhony 6.6 H* (0.7-2.0) mmol/L Calcium (8.4-10.2) mg/dL Magnesium (1.6-2.3) mg/dL Total Bilirubin (0.2-1.3) mg/dL AST (17-59) U/L ALT (4-49) U/L Alkaline Phosphatase (38-126) U/L Troponin I (0.000-0.034) ng/mL NT-Pro-B Natriuret Pep pg/mL Total Protein (6.3-8.2) g/dL Albumin (3.5-5.0) g/dL Lipase (23-300) U/L Urine Color Urine Appearance (Clear) Urine pH (5.0-8.0) Ur Specific [place] (1.001-1.035) Urine Protein (Negative) Urine Glucose (UA) (Negative) Urine Ketones (Negative) Urine Blood (Negative) Urine Nitrite (Negative) Urine Bilirubin (Negative) Urine Urobilinogen (<2.0) mg/dL Ur Leukocyte Esterase (Negative) Urine RBC (0-5) /hpf Urine WBC (0-5) /hpf Amorphous Sediment (None) /hpf Urine Bacteria (None) /hpf Hyaline Casts (0-2) /lpf Urine Mucus (None) /hpf Salicylates mg/dL Acetaminophen ug/mL Serum Alcohol mg/dL Disposition <Uri Sifuentes - Last Filed: 12/29/21 20:42> Is patient prescribed a controlled substance at d/c from ED?: No Time of Disposition: :59 Decision Date: 12/29/21 Decision Time: :59 <Rohit Beckett - Last Filed: 12/29/21 23:40> Clinical Impression: Cardiopulmonary arrest, Syncope, Alcohol intoxication, Alcohol abuse, Hypokalemia, Acidosis, Anoxic encephalopathy, Acute respiratory failure, Bilate ral pneumonia, Cerebral edema, Myoclonic jerking Disposition: ADMITTED IP TO THIS HOSP Condition: Critical Referrals: Valery Russell MD [Primary Care Provider] - 1-2 days
[2021-12-29 20:49] LABS: ALT 86 U/L (4-49); AST 159 U/L (17-59); Acetaminophen <10.0 ug/mL; African American GFR (CKD) 61 (>60 ml/min/1.73 sqM); Albumin 4.6 g/dL (3.5-5.0); Alkaline Phosphatase 49 U/L (38-126); Anion Gap 22 mmol/L; Blood Urea Nitrogen 8 mg/dL (9-20); Calcium 8.3 mg/dL (8.4-10.2); Carbon Dioxide 15 mmol/L (22-30); Chloride 106 mmol/L (98-107); Glucose 260 mg/dL (74-99); Lipase 204 U/L (23-300); Magnesium 3.1 mg/dL (1.6-2.3); Non-African American GFR(CKD) 53 (>60 ml/min/1.73 sqM); Salicylate <1.0 mg/dL; Sodium 143 mmol/L (137-145); Total Bilirubin 0.9 mg/dL (0.2-1.3); Total Protein 6.8 g/dL (6.3-8.2)
[2021-12-29 21:00] LABS: Alcohol 331 mg/dL
--- NOTE | 2021-12-29 21:05 | XR ---
EXAMINATION TYPE: XR chest 1V portable DATE OF EXAM: 12/29/2021 COMPARISON: 12/08/2020 HISTORY: Chest pain TECHNIQUE: FINDINGS: There is no heart failure nor confluent pneumonic infiltrate. The endotracheal tube is 1.3 cm into th e right mainstem bronchus. There is nasogastric tube in the stomach. There is cervical spine fusion s urgery. Costophrenic angles are clear. IMPRESSION: There is malposition of the endotracheal tube. Normal heart.
[2021-12-29 21:22] LABS: Prothrombin Time 11.1 sec (9.0-12.0)
[2021-12-29] MEDS ORDERED: POTASSIUM CHLORIDE 20 MEQ in WATER FOR INJECTION 1 100ML.BAG IVPB STA (21:27)
[2021-12-29 21:30] LABS: Amorphous Sediment,Urine Rare /hpf; Appearance,Urine Cloudy (Clear); Bacteria,Urine Rare /hpf; Bilirubin,Urine Negative (Negative); Blood,Urine Large (Negative); Color,Urine Light Yellow; Glucose,Urine (UA) 3+ (Negative); Hyaline Casts,Urine 18 /lpf (0-2); Ketones,Urine Trace (Negative); Leukocyte Esterase,Urine Negative (Negative); Mucus,Urine Rare /hpf; Nitrite,Urine Negative (Negative); PH, Urine 6.5 (5.0-8.0); Protein,Urine 3+ (Negative); RBC,Urine 121 /hpf (0-5); Specific Gravity,Urine 1.009 (1.001-1.035); Urobilinogen,Urine <2.0 mg/dL (<2.0); WBC,Urine 6 /hpf (0-5)
[2021-12-29 21:30] LABS: ABG Base Excess -14.1 mmol/L; ABG HCO3 16 mmol/L (21-25); ABG Oxygen Saturation 93.3 % (94-97); ABG PCO2 54 mmHg (35-45); ABG PO2 97 mmHg (83-108); ABG TCO2 18 mmol/L (19-24); Allen Test Performed? Yes
[2021-12-29 21:33] LABS: Partial Thromboplastin Time 20.5 sec (22.0-30.0)
[2021-12-29 21:46] LABS: ABG PH 7.08 (7.35-7.45)
--- NOTE | 2021-12-29 23:15 | CT ---
EXAMINATION TYPE: CT brain wo con DATE OF EXAM: 12/29/2021 COMPARISON: 08/17/2017 HISTORY: Mental status changes, cardiac arrest CT DLP: 1247.4 mGycm Automated exposure control for dose reduction was used. Ventricles have normal size. There is no mass effect nor midline shift. No sign of intracranial hemor rhage. There appears to be slight loss of the normal catherine-white matter differentiation compared to th e old exam. This could be developing cerebral edema. The calvarium is intact. There is normal aeratio n of the mastoid sinuses. IMPRESSION: This possible mild cerebral edema which is a change compared to old exam. No hemorrhage.
--- NOTE | 2021-12-29 23:22 | CT ---
EXAMINATION TYPE: CT angio chest DATE OF EXAM: 12/29/2021 COMPARISON: None HISTORY: Mental status changes, cardiac arrest CT DLP: 970.9 mGycm Automated exposure control for dose reduction was used. CONTRAST: Performed with IV Contrast, patient injected with 80 mL of Isovue 370. Images obtained from the thoracic inlet to the diaphragm with IV contrast. There are Three-D postproc essed images. There is patchy infiltrate and atelectasis at both lung bases. There is small amount of pleural fluid . There is no pericardial effusion. Thoracic aorta is intact. No aneurysm or dissection. There is no evidence of filling defect in the pu lmonary arteries. There is endotracheal tube noted. There is nasogastric tube in the stomach. There is elevation of the diaphragms. Bony thorax is intact. No compression fracture. Sternum is inta ct. IMPRESSION: Bilateral lower lobe airspace infiltrate and atelectasis. Small pleural effusions. No evidence of pul monary embolism.
[2021-12-29] MEDS ORDERED: VANCOMYCIN 1,000 MG in SODIUM CHLORIDE 0.9% 250 ML IVPB STA (23:32)
[2021-12-29] MEDS ORDERED: VANCOMYCIN IV PER PHARMACY 1 EACH MISC MISCELLANE PRN (23:32)
[2021-12-29] MEDS ORDERED: VANCOMYCIN 2,000 MG in SODIUM CHLORIDE 0.9% 500 ML 500 ML IVPB STA (23:36)
[2021-12-29] MEDS ORDERED: levETIRAcetam IV 500 MG in SODIUM CHLORIDE 0.9% 100 ML IVPB STA (23:39)
[2021-12-29] MEDS ORDERED: ACETAMINOPHEN SUPPOSITORY 650 MG SUPP RECTAL PRN (23:41)
[2021-12-29] MEDS ORDERED: ARTIFICIAL TEARS-HYPROMELLOSE DROPS 15 ML BTL BOTH EYES PRN (23:41)
[2021-12-30] MEDS: ENOXAPARIN 40 MG/0.4 ML SYRINGE SQ SCH ×2 (00:09→09:57)
[2021-12-30 00:32] LABS: Amphetamine Screen,Urine Not Detected (NotDetected); Barbiturate Screen,Urine Not Detected (NotDetected); Benzodiazepines Screen,Urine Not Detected (NotDetected); Cocaine Screen,Urine Not Detected (NotDetected); Methadone Screen, Urine Not Detected (NotDetected); Opiate Screen,Urine Not Detected (NotDetected); Oxycodone Screen, Urine Not Detected (NotDetected); Phencyclidine Screen,Urine Not Detected (NotDetected); Tricyclic Antidepressant,Urine Not Detected (NotDetected); Urn Cannabinoid Scrn Not Detected (NotDetected)
[2021-12-30 00:58] LABS: Glucose,Whole Blood 101 mg/dL (75-99)
[2021-12-30] MEDS ORDERED: ACETAMINOPHEN IV (For NPO) 1,000 MG in EMPTY BAG 1 BAG IVPB PRN (01:17)
[2021-12-30] MEDS ORDERED: levETIRAcetam IV 1,000 MG in SALINE 1 100ML.BAG IVPB SCH ×2 (01:30→10:00)
[2021-12-30] MEDS ORDERED: VALPROATE SODIUM 2,000 MG in SODIUM CHLORIDE 0.9% 100 ML IVPB STA (02:25)
[2021-12-30] MEDS ORDERED: PHENYTOIN SODIUM INJ 1,000 MG in SODIUM CHLORIDE 0.9% 100 ML IVPB PRN (02:26)
[2021-12-30] MEDS ORDERED: AMIODARONE 450 MG in DEXTROSE 5% IN WATER 250 ML IV SCH ×2 (02:30)
[2021-12-30 06:12] LABS: ABG Base Excess -6.1 mmol/L; ABG HCO3 23 mmol/L (21-25); ABG Oxygen Saturation 71.4 % (94-97); ABG PCO2 65 mmHg (35-45); ABG TCO2 25 mmol/L (19-24); Allen Test Performed? Yes
[2021-12-30 06:14] LABS: ABG PH 7.15 (7.35-7.45); ABG PO2 44 mmHg (83-108)
--- NOTE | 2021-12-30 06:33 | XR ---
EXAMINATION TYPE: XR chest 1V DATE OF EXAM: 12/30/2021 CLINICAL HISTORY: Difficulty breathing progress study. TECHNIQUE: Single AP portable semiupright view of the chest is obtained. COMPARISON: Chest x-ray and CTA chest from one day earlier FINDINGS: Stable endotracheal tube. Orogastric tube has been retracted with tip at the level of the diaphragmatic hiatus, advise advancing. Low lung volumes redemonstrated with patchy bibasilar opacities. Cardiac silhouette size is stable an d mildly enlarged. Anterior fusion plate in the cervical spine is redemonstrated. IMPRESSION: 1. Interval retraction of nasogastric tube, advise advancing. 2. Low lung volumes and mild cardiomegaly with bibasilar atelectasis redemonstrated.
[2021-12-30 07:14] LABS: Albumin 4.6 g/dL (3.5-5.0); Calcium 7.9 mg/dL (8.4-10.2); Total Bilirubin 0.9 mg/dL (0.2-1.3); Total Protein 7.2 g/dL (6.3-8.2)
[2021-12-30 07:33] LABS: Basophils # (A) 0.1 k/uL (0-0.2); Basophils % (A) 0 %; Eosinophils # (A) 0.1 k/uL (0-0.7); Eosinophils % (A) 0 %; HCT 48.9 % (39.0-53.0); HGB 16.5 gm/dL (13.0-17.5); Lymphocytes % (A) 6 %; MCH 30.8 pg (25.0-35.0); MCHC 33.8 g/dL (31.0-37.0); MCV 91.3 fL (80.0-100.0); Mean Platelet Volume 7.7; Monocytes # (A) 1.4 k/uL (0-1.0); Monocytes % (A) 9 %; Neutrophils % (A) 84 %; Platelet Count 283 k/uL (150-450); RBC 5.36 m/uL (4.30-5.90); RDW 14.7 % (11.5-15.5); WBC 16.7 k/uL (3.8-10.6)
[2021-12-30] MEDS ORDERED: PIPERACILLIN-TAZOBACTAM 3.375 GM in SODIUM CHLORIDE 0.9% 100 ML IVPB SCH (08:00)
[2021-12-30 08:12] LABS: ABG HCO3 20 mmol/L (21-25); ABG PCO2 47 mmHg (35-45); ABG PH 7.24 (7.35-7.45); ABG PO2 200 mmHg (83-108); ABG TCO2 22 mmol/L (19-24); Allen Test Performed? Yes
[2021-12-30] MEDS ORDERED: LORazepam 2 MG/ML INJ IV STA ×2 (08:12→08:20)
[2021-12-30] MEDS ORDERED: LORazepam 2 MG/ML INJ ONE (08:15)
[2021-12-30] MEDS ORDERED: NOREPINEPHRINE 4 MG in SODIUM CHLORIDE 0.9% 250 ML IV SCH (08:15)
[2021-12-30] MEDS ORDERED: CISATRACURIUM 2 MG/ML 5 ML VIAL IV ONE (08:20)
[2021-12-30] MEDS ORDERED: CISATRACURIUM 200 MG in SODIUM CHLORIDE 0.9% 180 ML IV SCH (08:30)
[2021-12-30] MEDS ORDERED: DEXTROSE 5% IN WATER 1,000 ML IV SCH (08:30)
[2021-12-30] MEDS ORDERED: MIDAZOLAM HCL 50 MG in SODIUM CHLORIDE 0.9% 40 ML IV SCH (08:30)
[2021-12-30] MEDS ORDERED: CLINDAMYCIN 600 MG/50 ML-D5W 600 MG in DEXTROSE/WATER 1 50ML.BAG IVPB SCH (09:00)
[2021-12-30] MEDS ORDERED: PANTOPRAZOLE 40 MG/10 ML VIAL IV SCH (09:00)
[2021-12-30] MEDS ORDERED: levETIRAcetam IV 500 MG in SODIUM CHLORIDE 0.9% 100 ML IVPB SCH (09:00)
--- NOTE | 2021-12-30 10:18 | P.HPIM ---
History of Present Illness This is a 46 years old male with past medical history of Asthma, Hyperlipidemia, Hypertension, chronic back and neck pains/p Back Surgery and cervical fusion, DECOMPRESSION, Anxiety, Depression, PTSD. Patient could not provide information. Was taken from staff records. As per my discussions with the admitting ER physician, patient is a cool abuse patient, he was witnessed unresponsive by family, they were watching him for about 10 minutes and eventually this suspected something serious so called 911, patient then underwent CPR and received epinephrine, eventually he has return of circulation, the downtown is suspected about 45-60 minutes. As per history patient drinks significant amounts of alcohol and that is half empty fifth of liquor which reported patient was then taken from yesterday. Narcan given with no improvement patient was recently discharged from the hospital from this facility on 12/10 for hematemesis and upper GI bleed and hypo natremia secondary of alcohol abuse This time upon arrival patient had Froilan tube, which is replaced with intubation Also patient developed the ventricular tachycardia and he was placed on amiodarone Patient also developed a fever of 102.7. Tachycardic and tachypneic. Blood pressure 166/77, he is saturating 93% on 100% FiO2 via mechanical ventilation Labs reviewed, CBC looks normal. INR 1.0, d-dimer 2.0. He is acidotic with pH of 7.1, pCO2 is elevated at 65 and pO2 is 44. Lactic acid elevated but coming down to 2.7, Potassium 3.0, sodium 143, creatinine 1.5. Troponin is negative. AST 159, ALT 86 both elevated. Open is normal 0.9. Lipase normal at 204. Urine analysis showing proteinuria, hematuria. Urinary tract screen is negative, salicylate and acetaminophen are negative. Serum alcohol is elevated at 331 [place] and influenza virus are undetected Chest x-ray: No strong evidence of infiltrate but on chest CTA: Bilateral lower lobe airspace infiltrate and atelectasis. No evidence of pulmonary embolism Possible mild cerebral edema In the emergency room patient was started on amiodarone drip, Keppra, ceftriaxone, IV vancomycin He is currently seen and examined in the ICU, he is intubated and on mechanical ventilation, he is on PEEP of 10 and FiO2 of 90%. Blood pressure is 120/76. Aspect bedside nurse antibiotics was not given, vancomycin was not given because of ALLERGIC reaction. Because of aspiration pneumonia is suspected we need to cover gram-negative bacteria Review of Systems N/a Past Medical History Past Medical History: Asthma, Hyperlipidemia, Hypertension Additional Past Medical History / Comment(s): chronic back and neck pain History of Any Multi-Drug Resistant Organisms: None Reported Past Surgical History: Back Surgery Additional Past Surgical History / Comment(s): cervical fusion, DECOMPRESSION, TOOTH EXTRACTION Past Anesthesia/Blood Transfusion Reactions: No Reported Reaction Past Psychological History: Anxiety, Depression, PTSD Smoking Status: Former smoker Past Alcohol Use History: None Reported Past Drug Use History: None Reported Medications and Allergies Home Medications Medication Instructions Recorded Confirmed Type No Known Home Medications 12/29/21 12/29/21 History Allergies Allergy/AdvReac Type Severity Reaction Status Date / Time amoxicillin Allergy Anaphylaxis Verified 12/29/21 21:17 ciprofloxacin [From Cipro] Allergy Anaphylaxis Verified 12/29/21 21:17 haloperidol Allergy Anaphylaxis Verified 12/29/21 21:17 ziprasidone Allergy Unknown Verified 12/29/21 21:17 Physical Exam Vitals: Vital Signs Temp Pulse Resp BP Pulse Ox FiO2 12/30/21 06:00 100.1 F H 111 H 39 H 132/103 100 12/30/21 05:30 111 H 26 H 105/75 95 12/30/21 05:00 100.4 F H 107 H 27 H 129/86 96 100 12/30/21 04:30 112 H 26 H 122/79 94 L 12/30/21 04:00 101.6 F H 105 H 27 H 129/85 94 L 100 12/30/21 03:30 101.3 F H 108 H 28 H 124/76 93 L 100 12/30/21 03:00 100 27 H 118/53 100 12/30/21 02:55 100 12/30/21 02:30 90 36 H 126/71 95 12/30/21 02:00 100.6 F H 92 33 H 120/66 93 L 100 12/30/21 01:30 95 33 H 120/66 96 12/30/21 01:00 102.7 F H 98 31 H 117/62 94 L 100 12/30/21 00:56 36 H 12/30/21 00:50 100 12/30/21 00:30 98.6 F 94 28 H 135/62 100 12/30/21 00:18 112 H 28 H 143/74 96 12/30/21 00:00 103 H 28 H 147/68 93 L 12/29/21 23:40 100 12/29/21 23:00 90 28 H 125/63 94 L 12/29/21 22:30 97 28 H 120/60 94 L 12/29/21 22:25 99 28 H 112/52 92 L 12/29/21 22:00 98 28 H 121/45 92 L 12/29/21 21:47 28 H 92 L 12/29/21 21:45 96 20 114/49 91 L 12/29/21 21:32 96 16 111/53 90 L 12/29/21 21:08 100 12/29/21 21:03 92 16 129/76 93 L 12/29/21 20:45 91 16 189/100 93 L 12/29/21 20:40 100 12/29/21 20:28 89 14 210/116 89 L 12/29/21 20:15 146 H 14 148/106 89 L Intake and Output 12/29/21 12/29/21 12/30/21 14:59 22:59 06:59 Intake Total 17.431 918.826 Output Total 510 Balance 17.431 408.826 Intake: IV 600 Sodium Chloride 0.9% 1, 600 000 ml @ 100 mls/hr IV . Q10H [facility] Rx#:[id number] Intake, IV Titration 17.431 318.826 Amount propofoL 1,000 mg In 17.431 318.826 Empty Bag 1 bag @ 15 MCG/ KG/MIN 12.859 mls/hr IV . Q7H47M [facility] Rx#:[id number] Output: Urine 510 Other: Voiding Method Indwelling Catheter Weight 142.882 kg -GENERAL: The patient is sedated and intubated. Morbidly obese HEENT: Pupils are round and equally reacting to light. EOMI. No scleral icterus. No conjunctival pallor. Normocephalic, atraumatic. No pharyngeal erythema. No thyromegaly. CARDIOVASCULAR: S1 and S2 present. No murmurs, rubs, or gallops. PULMONARY: Chest is clear to auscultation, no wheezing or crackles. -ABDOMEN: Soft, nontender, nondistended, normoactive bowel sounds. No palpable organomegaly. Jeff catheter in place with light red urine MUSCULOSKELETAL: No joint swelling or deformity. EXTREMITIES: No cyanosis, clubbing, or pedal edema. NEUROLOGICAL: Gross neurological examination did not reveal any focal deficits. SKIN: No rashes. no petechiae. Results CBC & Chem 7: 12/30/21 06:45 12/30/21 06:45 Labs: Abnormal Lab Results - Last 24 Hours (Table) 12/29/21 12/29/21 12/29/21 Range/Units 20:27 20:27 20:55 APTT 20.5 L (22.0-30.0) sec D-Dimer 2.05 H (<0.60) mg/L FEU ABG pH (7.35-7.45) ABG pCO2 (35-45) mmHg ABG pO2 (83-108) mmHg ABG HCO3 (21-25) mmol/L ABG Total CO2 (19-24) mmol/L ABG O2 Saturation (94-97) % Potassium 3.0 L (3.5-5.1) mmol/L Carbon Dioxide 15 L (22-30) mmol/L BUN 8 L (9-20) mg/dL Creatinine 1.56 H (0.66-1.25) mg/dL Glucose 260 H (74-99) mg/dL POC Glucose (mg/dL) (75-99) mg/dL Plasma Lactic Acid Jhony (0.7-2.0) mmol/L Calcium 8.3 L (8.4-10.2) mg/dL Magnesium 3.1 H (1.6-2.3) mg/dL AST 159 H (17-59) U/L ALT 86 H (4-49) U/L Urine Protein 3+ H (Negative) Urine Glucose (UA) 3+ H (Negative) Urine Ketones Trace H (Negative) Urine Blood Large H (Negative) Urine RBC 121 H (0-5) /hpf Urine WBC 6 H (0-5) /hpf Amorphous Sediment Rare H (None) /hpf Urine Bacteria Rare H (None) /hpf Hyaline Casts 18 H (0-2) /lpf Urine Mucus Rare H (None) /hpf Serum Alcohol 331 H* mg/dL 12/29/21 12/29/21 12/30/21 Range/Units 21:14 21:53 00:24 APTT (22.0-30.0) sec D-Dimer (<0.60) mg/L FEU ABG pH 7.08 L* (7.35-7.45) ABG pCO2 54 H (35-45) mmHg ABG pO2 (83-108) mmHg ABG HCO3 16 L (21-25) mmol/L ABG Total CO2 18 L (19-24) mmol/L ABG O2 Saturation 93.3 L (94-97) % Potassium (3.5-5.1) mmol/L Carbon Dioxide (22-30) mmol/L BUN (9-20) mg/dL Creatinine (0.66-1.25) mg/dL Glucose (74-99) mg/dL POC Glucose (mg/dL) (75-99) mg/dL Plasma Lactic Acid Jhony 6.6 H* 2.7 H* (0.7-2.0) mmol/L Calcium (8.4-10.2) mg/dL Magnesium (1.6-2.3) mg/dL AST (17-59) U/L ALT (4-49) U/L Urine Protein (Negative) Urine Glucose (UA) (Negative) Urine Ketones (Negative) Urine Blood (Negative) Urine RBC (0-5) /hpf Urine WBC (0-5) /hpf Amorphous Sediment (None) /hpf Urine Bacteria (None) /hpf Hyaline Casts (0-2) /lpf Urine Mucus (None) /hpf Serum Alcohol mg/dL 12/30/21 12/30/21 Range/Units 00:56 06:11 APTT (22.0-30.0) sec D-Dimer (<0.60) mg/L FEU ABG pH 7.15 L* (7.35-7.45) ABG pCO2 65 H (35-45) mmHg ABG pO2 44 L* (83-108) mmHg ABG HCO3 (21-25) mmol/L ABG Total CO2 25 H (19-24) mmol/L ABG O2 Saturation 71.4 L (94-97) % Potassium (3.5-5.1) mmol/L Carbon Dioxide (22-30) mmol/L BUN (9-20) mg/dL Creatinine (0.66-1.25) mg/dL Glucose (74-99) mg/dL POC Glucose (mg/dL) 101 H (75-99) mg/dL Plasma Lactic Acid Jhony (0.7-2.0) mmol/L Calcium (8.4-10.2) mg/dL Magnesium (1.6-2.3) mg/dL AST (17-59) U/L ALT (4-49) U/L Urine Protein (Negative) Urine Glucose (UA) (Negative) Urine Ketones (Negative) Urine Blood (Negative) Urine RBC (0-5) /hpf Urine WBC (0-5) /hpf Amorphous Sediment (None) /hpf Urine Bacteria (None) /hpf Hyaline Casts (0-2) /lpf Urine Mucus (None) /hpf Serum Alcohol mg/dL Assessment and Plan Assessment: Status post cardiac arrest, requiring CPR with return of circulation, status post intubation and mechanical ventilation Ventricular tachycardia Aspiration pneumonia Severe sepsis secondary to above Cerebral edema Myoclonic jerks Combined metabolic and respiratory acidosis Acute kidney injury, present on arrival Alcohol abuse Mild transaminitis, could be contributed to at least in part to alcohol abuse Alcohol intoxication, present upon arrival Morbid obesity with BMI of 42.7 Plan: This is a pleasant 46 years old male who presents with cardiac arrest, aspiration pneumonia, severe sepsis, acidosis and on mechanical ventilation Pulmonary/critical care consult will help with vent management Continue with amiodarone drip Neurology consult Cardiology team consult Continue with antibiotic. We will switch his antibiotic to clindamycin Check echocardiogram and EEG Labs and medication were reviewed.. Continue same treatment. Continue with symptomatic treatment. Resume home medication. Monitor lytes and vitals. DVT and GI prophylaxis. Further recommendationsas per clinical course of the patient DVT prophylaxis: Subcutaneous Lovenox GI Prophylaxis: Ppi Prognosis is guarded
--- NOTE | 2021-12-30 10:25 | XR ---
EXAMINATION TYPE: XR chest 1V portable DATE OF EXAM: 12/30/2021 CLINICAL HISTORY: Central line placement. TECHNIQUE: Single AP portable supine view of the chest is obtained. COMPARISON: Chest x-ray from earlier today FINDINGS: New left sided central venous catheter terminating in SVC. Stable endotracheal tube. Orogastric tube tip not well seen on current study. Low lung volumes redemonstrated with patchy bibasilar opacities. Cardiac silhouette size is stable an d mildly enlarged. Anterior fusion plate in the cervical spine is redemonstrated. Overlying grid artifact current study. IMPRESSION: No pneumothorax after central line placement.
--- NOTE | 2021-12-30 10:29 | EEG ---
ELECTROENCEPHALOGRAM REPORT DATE OF SERVICE: 12/30/2021 PREAMBLE: This is a 46-year-old male with cardiac arrest with prolonged down time. The patient is having myoclonic type jerks. Current medications are Keppra, Depakote, Dilantin. He is also on propofol 50 mcg/kg per minute. EEG FINDINGS: This is a 21-channel digital EEG recorded with video component, utilizing 10/20 international system with referential and bipolar montages. Background consists of poorly developed and regulated suppressed background with diffuse theta and delta slowing. Very frequent bursts of high-amplitude spikes and polyspikes were seen associated with myoclonic jerking clinically. These were occurring every second to sometimes continuous for several seconds. Sometimes longer periods of suppression were also seen for 10 seconds. Different stages of sleep were not seen. IMPRESSION: This is an abnormal EEG due to burst suppressed pattern. The bursts consist of high- amplitude generalized spike/polyspikes, followed by generalized suppression. These spikes were present at times every second, sometimes continuous for several seconds. This is consistent with generalized status epilepticus. Presence of burst suppressed pattern indicates severe encephalopathy. Clinical correlation and follow-up EEG are recommended. Consider continuous EEG monitoring. MMODL / IJN: [id number] /
--- NOTE | 2021-12-30 10:59 | PCN ---
PROCEDURE NOTE PROCEDURE: Placement of left internal jugular triple-lumen catheter. PREOPERATIVE DIAGNOSIS: 1. Respiratory failure. 2. Administration of fluids and pressors. 3. Hypotension. 4. Status epilepticus. POSTOPERATIVE DIAGNOSIS: 1. Respiratory failure. 2. Administration of fluids and pressors. 3. Hypotension. 4. Status epilepticus. OPERATORS: 1. Dr. Orantes. 2. Dr. Xiong. PROCEDURE DESCRIPTION: A universal timeout was completed verifying correct patient, procedure, site, positioning and implant(s) or special equipment if applicable. There was informed consent. The patient was placed in a dependent position appropriate for triple-lumen catheter placement based on the vein to be cannulated. The patient's left neck was prepped and draped in sterile fashion. 1% Lidocaine was used to anesthetize the surrounding skin area. A triple-lumen 9F Cordis catheter was introduced using the posterior approach into the left internal jugular vein using Seldinger technique. The catheter was threaded smoothly over the guide wire and appropriate blood return was obtained. There was good blood return from all three ports. Each lumen of the catheter was evacuated of air and flushed with sterile saline. The catheter was then sutured in place to the skin and a sterile dressing was applied by the nurse. Perfusion to the extremity distal to the point of catheter insertion was checked and found to be adequate. There was no immediate complication. A chest x-ray showed the tip of catheter to be at the junction of the superior vena cava and right atrium. Again, there was no major complication noted. The patient tolerated the procedure well. MMODL / IJN: [id number] /
--- NOTE | 2021-12-30 10:59 | PCN ---
PROCEDURE NOTE PROCEDURE: Placement of right radial arterial line. PREOPERATIVE DIAGNOSIS: Frequent blood draws and blood gas monitoring. POSTOPERATIVE DIAGNOSIS: Frequent blood draws and blood gas monitoring. OPERATORS: 1. Dr. Orantes. 2. Dr. Xiong. PROCEDURE DESCRIPTION: There was informed consent and universal timeout was completed, verifying correct patient, procedure, site, positioning, and implant(s) or special equipment if applicable. Jared's test was performed to ensure adequate perfusion. The patient's right wrist was prepped and draped in sterile fashion. 1% Lidocaine was used to anesthetize the area. An 18G Arrow arterial line was introduced into the right radial artery. The catheter was threaded over the guidewire and the needle was removed with appropriate pulsatile blood return. Blood loss was minimal. There was good waveform and blood pressure reading. The catheter was then sutured in place to the skin and a sterile dressing was applied by the nurse. Perfusion to the extremity distal to the point of catheter insertion was checked and found to be adequate. The patient tolerated the procedure well and there were no major complications. MMODL / IJN: [id number] /
[2021-12-30] MEDS ORDERED: SODIUM CHLORIDE 0.9% IVPB SCH (11:00)
[2021-12-30] MEDS ORDERED: VALPROATE SODIUM IVPB SCH (11:00)
[2021-12-30 11:01] VITALS: BP 107/72
[2021-12-30] MEDS: IPRATROPIUM-ALBUTEROL 3 ML NEB INHALATION PRN ×2 (11:31→15:10)
[2021-12-30 12:28] VITALS: TEMP 36.5
--- NOTE | 2021-12-30 13:14 | P.CRDCN ---
History of Present Illness History of present illness: - . HPI: [This patient apparently wasn't witnessed arrest at home brought in by the EMS. His vital signs are last and underwent CPR with the multiple doses of epinephrine for a prolonged period of time. Apparently intubation was also an issue initially. However patient also had some ventricular arrhythmias was placed on a amiodarone drip. His down time was more than 30-40 minutes with the prolonged CPR subsequently. He is not on any pressors. He is unresponsive fully sedated with propofol on a ventilator. Patient also has history of alcoholism and also some psychiatric history but details are unavailable.]. RELEVANT PAST MEDICAL HISTORY: [Bronchial asthma, hyperlipidemia, hypertension. No documented evidence of any CAD. Patient also has history of alcoholism. He is status post back surgery.]. MEDICATIONS: [None according to the chart] ALLERGIES: []. REVIEW OF SYSTEMS: [Unable to obtain]. PHYSICIAL EXAM: [Blood pressure is 120/80 pulse rate is about 96 sinus JVD is evident S1-S2 heard normally short systolic murmur lungs revealed ventilatory assisted breath sounds abdomen is soft lower extremities reveal diminished pulses central nervous system assessment was not performed]. IMPRESSION: 1. [ Cardiac arrest with possible anoxic encephalopathy. EKG does not reveal any ST segment changes. Nonspecific ST-T changes and borderline troponin could be related to hypoxia. No clearcut evidence to suggest a primary myocardial injury]. 2. [ Hypertension]. 3. [ Alcoholism]. 4. []. 5. []. RECOMMENDATIONS: [Patient is currently on amiodarone drip which I am suggesting we continue at 0.5 mg. He is being considered to be transferred to another facility. It is unclear as to what his etiology is but no significant arrhythmia magnesium yesterday was good percussion level is good. No aggressive intervention will await his neurological recovery and continue supportive care. There is no family available to talk to.]. Past Medical History Past Medical History: Asthma, Hyperlipidemia, Hypertension Additional Past Medical History / Comment(s): chronic back and neck pain History of Any Multi-Drug Resistant Organisms: None Reported Past Surgical History: Back Surgery Additional Past Surgical History / Comment(s): cervical fusion, DECOMPRESSION, TOOTH EXTRACTION Past Anesthesia/Blood Transfusion Reactions: No Reported Reaction Past Psychological History: Anxiety, Depression, PTSD Smoking Status: Former smoker Past Alcohol Use History: None Reported Past Drug Use History: None Reported Medications and Allergies Home Medications Medication Instructions Recorded Confirmed Type No Known Home Medications 12/29/21 12/29/21 History Allergies Allergy/AdvReac Type Severity Reaction Status Date / Time amoxicillin Allergy Anaphylaxis Verified 12/29/21 21:17 ciprofloxacin [From Cipro] Allergy Anaphylaxis Verified 12/29/21 21:17 haloperidol Allergy Anaphylaxis Verified 12/29/21 21:17 ziprasidone Allergy Unknown Verified 12/29/21 21:17 Physical Exam Vitals: Vital Signs Temp Pulse Resp BP Pulse Ox FiO2 12/30/21 12:00 36.5 F L 91 28 H 100 80 12/30/21 11:41 90 28 H 12/30/21 11:31 92 28 H 12/30/21 11:30 80 12/30/21 11:29 80 12/30/21 11:25 90 12/30/21 11:00 87 22 100 12/30/21 10:30 87 29 H 100 12/30/21 10:00 36.9 F L 90 28 H 107/72 100 100 12/30/21 09:30 90 28 H 94/60 100 12/30/21 09:00 95 28 H 100/62 99 12/30/21 08:30 100 4 L 114/64 97 12/30/21 08:16 90 12/30/21 08:00 37.7 F L 105 H 32 H 122/80 96 100 12/30/21 07:30 121 H 34 H 102/82 95 12/30/21 07:10 100 12/30/21 07:00 121 H 24 166/77 95 12/30/21 06:30 113 H 37 H 147/87 93 L 12/30/21 06:00 100.1 F H 111 H 39 H 132/103 93 L 100 12/30/21 05:30 111 H 26 H 105/75 95 12/30/21 05:00 100.4 F H 107 H 27 H 129/86 96 100 12/30/21 04:30 112 H 26 H 122/79 94 L 12/30/21 04:00 101.6 F H 105 H 27 H 129/85 94 L 100 12/30/21 03:30 101.3 F H 108 H 28 H 124/76 93 L 100 12/30/21 03:00 100 27 H 118/53 100 12/30/21 02:55 100 12/30/21 02:30 90 36 H 126/71 95 12/30/21 02:00 100.6 F H 92 33 H 120/66 93 L 100 12/30/21 01:30 95 33 H 120/66 96 12/30/21 01:00 102.7 F H 98 31 H 117/62 94 L 100 12/30/21 00:56 36 H 12/30/21 00:50 100 12/30/21 00:30 98.6 F 94 28 H 135/62 100 12/30/21 00:18 112 H 28 H 143/74 96 12/30/21 00:00 103 H 28 H 147/68 93 L 12/29/21 23:40 100 12/29/21 23:00 90 28 H 125/63 94 L 12/29/21 22:30 97 28 H 120/60 94 L 12/29/21 22:25 99 28 H 112/52 92 L 12/29/21 22:00 98 28 H 121/45 92 L 12/29/21 21:47 28 H 92 L 12/29/21 21:45 96 20 114/49 91 L 12/29/21 21:32 96 16 111/53 90 L 12/29/21 21:03 92 16 129/76 93 L 12/29/21 20:45 91 16 189/100 93 L 12/29/21 20:40 100 12/29/21 20:28 89 14 210/116 89 L 12/29/21 20:15 146 H 14 148/106 89 L Intake and Output 12/29/21 12/30/21 12/30/21 22:59 06:59 14:59 Intake Total 17.431 918.826 786.276 Output Total 510 400 Balance 17.431 408.826 386.276 Intake: IV 600 400 Sodium Chloride 0.9% 1, 600 400 000 ml @ 100 mls/hr IV . Q10H [facility] Rx#:[id number] Intake, IV Titration 17.431 318.826 386.276 Amount Cisatracurium 200 mg In 4.143 Sodium Chloride 0.9% 180 ml @ 0.5 MCG/KG/MIN 4.286 mls/hr IV .Q24H [facility] Rx#: [id number] Dextrose 5% in Water 1, 75 000 ml @ 75 mls/hr IV . [id number] [facility] Rx#:[id number] Midazolam HCl 50 mg In 7.133 Sodium Chloride 0.9% 40 ml @ 1 MG/HR 1 mls/hr IV .Q24H [facility] Rx#:[id number] Sodium Chloride 0.9% 1, 200 000 ml @ 100 mls/hr IV . Q10H [facility] Rx#:[id number] propofoL 1,000 mg In 17.431 318.826 100 Empty Bag 1 bag @ 15 MCG/ KG/MIN 12.859 mls/hr IV . Q7H47M [facility] Rx#:[id number] Output: Urine 510 400 Other: Voiding Method Indwelling Catheter Indwelling Catheter Weight 142.882 kg ABP, PAP, CO, CI - Last 8 Hours Arterial Blood Pressure 138/73 Arterial Blood Pressure 122/66 Arterial Blood Pressure 130/67 Arterial Blood Pressure 104/61 Results 12/30/21 06:45 12/30/21 06:45 Cardiac Enzymes 12/29/21 12/29/21 12/30/21 Range/Units 20:27 20:27 06:45 AST 159 H 433 H (17-59) U/L Troponin I <0.012 (0.000-0.034) ng/mL Coagulation 12/29/21 Range/Units 20:27 PT 11.1 (9.0-12.0) sec APTT 20.5 L (22.0-30.0) sec CBC 12/29/21 12/30/21 Range/Units 20:27 06:45 WBC 8.7 16.7 H (3.8-10.6) k/uL RBC 5.24 5.36 (4.30-5.90) m/uL Hgb 15.4 16.5 (13.0-17.5) gm/dL Hct 49.2 48.9 (39.0-53.0) % Plt Count 277 283 (150-450) k/uL Comprehensive Metabolic Panel 12/29/21 12/30/21 Range/Units 20:27 06:45 Sodium 143 148 H (137-145) mmol/L Potassium 3.0 L 5.0 (3.5-5.1) mmol/L Chloride 106 116 H (98-107) mmol/L Carbon Dioxide 15 L 17 L (22-30) mmol/L BUN 8 L 14 (9-20) mg/dL Creatinine 1.56 H 1.68 H (0.66-1.25) mg/dL Glucose 260 H 114 H (74-99) mg/dL Calcium 8.3 L 7.9 L (8.4-10.2) mg/dL AST 159 H 433 H (17-59) U/L ALT 86 H 171 H (4-49) U/L Alkaline Phosphatase 49 63 (38-126) U/L Total Protein 6.8 7.2 (6.3-8.2) g/dL Albumin 4.6 4.6 (3.5-5.0) g/dL Current Medications Generic Name Dose Route Start Last Admin Trade Name Freq PRN Reason Stop Dose Admin Acetaminophen 650 mg 12/29/21 23:41 Acetaminophen Suppository 650 Mg Supp RECTAL Q4HR PRN Fever And/ Or Mild Pain Albuterol/Ipratropium 3 ml 12/29/21 23:41 12/30/21 11:31 Ipratropium-Albuterol 3 Ml Neb INHALATION 3 ml RT-Q4H PRN Administration Shortness Of Breath Or Wheezing Artificial Tears 1 drops 12/29/21 23:41 Artificial Tears-Hypromellose Drops 15 Ml Btl BOTH EYES Q4HR PRN Dry Eye(s) Enoxaparin Sodium 40 mg 12/29/21 23:45 12/30/21 09:57 Enoxaparin 40 Mg/0.4 Ml Syringe SQ 40 mg DAILY [facility] Administration Amiodarone HCl 450 mg/ 250 mls @ 16.667 mls/hr 12/30/21 02:30 12/30/21 02:18 Dextrose/Water IV 12/30/21 20:29 0.5 mg/min .Q15H [facility] 16.667 mls/hr Administration Protocol 0.5 MG/MIN Propofol 1,000 mg/ IV Solution 100 mls @ 12.859 mls/hr 12/29/21 21:30 12/30/21 09:59 IV Infused .Q7H47M [facility] Titration Protocol 15 MCG/KG/MIN Acetaminophen 1,000 mg/ IV 100 mls @ 400 mls/hr 12/30/21 01:17 12/30/21 03:35 Solution IVPB 12/30/21 18:14 400 mls/hr Q6HR PRN Administration Fever Valproic Acid 2,000 mg/ Sodium 70 mls @ 42 mls/hr 12/30/21 11:00 12/30/21 12:32 Chloride IVPB 42 mls/hr Q8H [facility] Administration 20 MG/MIN Levetiracetam 1,000 mg/ IV 100 mls @ 400 mls/hr 12/30/21 10:00 12/30/21 12:33 Solution IVPB 400 mls/hr Q12HR [facility] Administration Norepinephrine Bitartrate 4 mg 254 mls @ 27.219 mls/hr 12/30/21 08:15 12/30/21 09:57 / Sodium Chloride IV Not Given .Q9H20M [facility] Protocol 0.05 MCG/KG/MIN Midazolam HCl 50 mg/ Sodium 50 mls @ 1 mls/hr 12/30/21 08:30 12/30/21 11:44 Chloride IV 4 mg/hr .Q24H [facility] 4 mls/hr Titration Protocol 1 MG/HR Dextrose/Water 1,000 mls @ 75 mls/hr 12/30/21 08:30 12/30/21 09:02 Dextrose 5%-Water Iv Soln IV 75 mls/hr .[id number] [facility] Administration Cisatracurium Besylate 200 mg/ 200 mls @ 4.286 mls/hr 12/30/21 08:30 12/30/21 10:00 Sodium Chloride IV 1.5 mcg/kg/min .Q24H [facility] 12.859 mls/hr Titration Protocol 0.5 MCG/KG/MIN Pantoprazole Sodium 40 mg 12/30/21 09:00 12/30/21 09:57 Pantoprazole 40 Mg/10 Ml Vial IV 40 mg DAILY MI[facility] Administration Intake and Output 12/29/21 12/30/21 12/30/21 22:59 06:59 14:59 Intake Total 17.431 918.826 786.276 Output Total 510 400 Balance 17.431 408.826 386.276 Intake: IV 600 400 Sodium Chloride 0.9% 1, 600 400 000 ml @ 100 mls/hr IV . Q10H [facility] Rx#:[id number] Intake, IV Titration 17.431 318.826 386.276 Amount Cisatracurium 200 mg In 4.143 Sodium Chloride 0.9% 180 ml @ 0.5 MCG/KG/MIN 4.286 mls/hr IV .Q24H [facility] Rx#: [id number] Dextrose 5% in Water 1, 75 000 ml @ 75 mls/hr IV . [id number] [facility] Rx#:[id number] Midazolam HCl 50 mg In 7.133 Sodium Chloride 0.9% 40 ml @ 1 MG/HR 1 mls/hr IV .Q24H [facility] Rx#:[id number] Sodium Chloride 0.9% 1, 200 000 ml @ 100 mls/hr IV . Q10H [facility] Rx#:[id number] propofoL 1,000 mg In 17.431 318.826 100 Empty Bag 1 bag @ 15 MCG/ KG/MIN 12.859 mls/hr IV . Q7H47M [facility] Rx#:[id number] Output: Urine 510 400 Other: Voiding Method Indwelling Catheter Indwelling Catheter Weight 142.882 kg 12/30/21 06:45 12/30/21 06:45
--- NOTE | 2021-12-30 13:52 | CA ---
Transthoracic Echo Report Name: Ghanshyam Jarrell Age: 46 Gender: M : 1975 Exam Date: 12/30/2021 07:46 Exam Location: [facility] Ht (in): 71 Wt (lb): 315 Ordering Physician: Rohit Beckett DO Attending/Referring Phys: [id number], Sophy Cow Tester Mary Sotelo, GLENYS Procedure CPT: Indications: Syncope Cardiac Hx: Pt had cardiac arrest. Technical Quality: Good Contrast 1: Lumason Total Dose (mL): 1 Contrast 2: Total Dose (mL): MEASUREMENTS (Male / Female) Normal Values 2D ECHO LV Diastolic Diameter PLAX 4.9 cm 4.2 - 5.9 / 3.9 - 5.3 cm LV Systolic Diameter PLAX 2.0 cm IVS Diastolic Thickness 1.1 cm 0.6 - 1.0 / 0.6 - 0.9 cm LVPW Diastolic Thickness 1.2 cm 0.6 - 1.0 / 0.6 - 0.9 cm LV Relative Wall Thickness 0.5 RV Internal Dim ED PLAX 1.8 cm M-MODE Aortic Root Diameter MM 3.6 cm LA Systolic Diameter MM 3.5 cm LA Ao Ratio MM 1.0 MV E Point Septal Separation 0.7 cm AV Cusp Separation MM 2.4 cm DOPPLER AV Peak Velocity 132.7 cm/s AV Peak Gradient 7.0 mmHg MV Area PHT 5.4 cm??? MR Peak Velocity 112.9 cm/s MR Peak Gradient 5.1 mmHg Mitral E Point Velocity 71.7 cm/s Mitral A Point Velocity 68.6 cm/s Mitral E to A Ratio 1.0 MV Deceleration Time 140.9 ms TR Peak Velocity 74.0 cm/s TR Peak Gradient 2.2 mmHg Right Ventricular Systolic Press 7.2 mmHg FINDINGS Left Ventricle Mildly increased septal wall thickness. Left ventricular ejection fraction is estimated at 55-60 %. Left ventricular cavity size normal. Right Ventricle Right ventricle not well visualized. Right Atrium Right atrium not well visualized. Left Atrium Left atrium not well visualized. Mitral Valve Mitral valve not well visualized. Aortic Valve Aortic valve not well visualized. Tricuspid Valve Tricuspid valve not well visualized. Pulmonic Valve Pulmonic valve not well visualized. Pulmonic valve not well visualized. Pericardium No pericardial effusion. Aorta Aortic root and proximal ascending aorta not well visualized. CONCLUSIONS Normal ejection fraction 55-60% Mild LVH Mild mitral regurgitation Mild tricuspid regurgitation No pericardial effusion Previewed by: Dr. Nicholas Daniel DO (Electronically Signed) Final Date: 30 Dec 2021 13:51
[2021-12-30] MEDS ORDERED: SODIUM CHLORIDE 0.9% IVPB STA (13:54)
[2021-12-30] MEDS ORDERED: PHENYTOIN SODIUM IVPB STA (13:54)
--- NOTE | 2021-12-30 14:09 | P.CNNES ---
History of Present Illness Consult date: 12/30/21 Requesting physician: Nia Hayes Reason for Consult: Anoxic Brain Injury History of Present Illness: Patient is a 46-year-old male came to the hospital by ambulance yesterday at 8:10 PM after a cardiac arrest at home. According to EMS flow sheet, they were contacted at 7:30 PM, and they arrived at the scene at 7:33 PM. When they arrived, patient was laying on the floor on his right side, positive circumoral cyanosis. Patient was alert and oriented 0, with GCS 3, pulseless and apneic. Bottles of vodka were found on the scene. Patient's mother reported that patient "admitted to drinking alcohol and that he was acting very intoxicated". Approximate downtime was 7:20 PM. CPR was not attempted by family prior to arrival. Patient also has history of psychiatric issues and substance abuse. Manual CPR was started by EMS. hospital monitor revealed a D.O. ventricular idioventricular rhythm with no mechanical pulses present. Pupils are dilated at 5 mm, equal but not reactive to light. Patient's family denied any other substance consumed or used by patient other than alcohol. Abdulaziz device was appl ied. Patient was given epinephrine 1 mg 1:10,000 concentration IV push for cardiac arrest. Patient was given Narcan 2 mg slow IV push due to unknown cause of cardiac arrest. ROSC was obtained on patient after fifth dose of epinephrine at 7:55 PM, cardiac monitoring showing sinus rhythm, radial pulse was successfully palpated. Patient's blood sugar was 150 at the scene. Vital signs arrival blood pressure 148/106, pulse rate 146, temperature 98.6. T-max 102.7. Blood test shows normal CBC, PT/PTT, sodium is normal potassium 3.0, BUN is 8, creatinine 1.56. AST 159, ALT 86. Lactate was 6.6. UA negative. Urine drug screen negative. Blood level was 331. ABG showed pH of 7.08, pCO2 54, saturation 93% with the O2 97. CT head reported as possible mild cerebral edema which is a change compared to old exam. No hemorrhage. On my personal review, I agree there is evidence of appreciable cerebral edema as compared to the last computed tomography scan of head. There is loss of catherine-wh ite differentiation. Chest x-ray showed no acute process. CTA of the chest showed bilateral lower lobe airspace infiltrate and atelectasis. Small pleural effusion. No evidence of pulmonary embolism. EKG shows sinus rhythm, possible left atrial enlargement. Patient started having myoclonic jerking of the body sometimes around 9:30 PM. Patient was already on propofol 50 mcg/kg/m. Patient was given Keppra 500 mg at 11:30 PM and 1000 mg at 1:30 AM. Patient's seizure-like activity continued, Depacon 2 g IV loading dose followed by 1000 mg every 12 hours was commended. Patient subsequently given Dilantin 1 g loading dose was given. Seizure-like activity continued. Propofol was further increased to 75 mcg/kg/m. Patient then finally started on Versed drip and was given Nimbex loading dose. This finally aborted overt seizure activity. Patient probably will need continuous EEG monitoring. Review of Systems ROS unobtainable: due to endotracheal tube, due to mental status Past Medical History Past Medical History: Asthma, Hyperlipidemia, Hypertension Additional Past Medical History / Comment(s): chronic back and neck pain History of Any Multi-Drug Resistant Organisms: None Reported Past Surgical History: Back Surgery Additional Past Surgical History / Comment(s): cervical fusion, DECOMPRESSION, TOOTH EXTRACTION Past Anesthesia/Blood Transfusion Reactions: No Reported Reaction Past Psychological History: Anxiety, Depression, PTSD Smoking Status: Former smoker Past Alcohol Use History: None Reported Past Drug Use History: None Reported Medications and Allergies Home Medications Medication Instructions Recorded Confirmed Type No Known Home Medications 12/29/21 12/29/21 History Allergies Allergy/AdvReac Type Severity Reaction Status Date / Time amoxicillin Allergy Anaphylaxis Verified 12/29/21 21:17 ciprofloxacin [From Cipro] Allergy Anaphylaxis Verified 12/29/21 21:17 haloperidol Allergy Anaphylaxis Verified 12/29/21 21:17 ziprasidone Allergy Unknown Verified 12/29/21 21:17 Physical Examination - Vital Signs Vital Signs: Vital Signs Temp Pulse Resp BP Pulse Ox FiO2 12/30/21 07:10 100 12/30/21 07:00 121 H 24 166/77 95 12/30/21 06:30 113 H 37 H 147/87 93 L 12/30/21 06:00 100.1 F H 111 H 39 H 132/103 93 L 100 12/30/21 05:30 111 H 26 H 105/75 95 12/30/21 05:00 100.4 F H 107 H 27 H 129/86 96 100 12/30/21 04:30 112 H 26 H 122/79 94 L 12/30/21 04:00 101.6 F H 105 H 27 H 129/85 94 L 100 12/30/21 03:30 101.3 F H 108 H 28 H 124/76 93 L 100 12/30/21 03:00 100 27 H 118/53 100 12/30/21 02:55 100 12/30/21 02:30 90 36 H 126/71 95 12/30/21 02:00 100.6 F H 92 33 H 120/66 93 L 100 12/30/21 01:30 95 33 H 120/66 96 12/30/21 01:00 102.7 F H 98 31 H 117/62 94 L 100 12/30/21 00:56 36 H 12/30/21 00:50 100 12/30/21 00:30 98.6 F 94 28 H 135/62 100 12/30/21 00:18 112 H 28 H 143/74 96 12/30/21 00:00 103 H 28 H 147/68 93 L 12/29/21 23:40 100 12/29/21 23:00 90 28 H 125/63 94 L 12/29/21 22:30 97 28 H 120/60 94 L 12/29/21 22:25 99 28 H 112/52 92 L 12/29/21 22:00 98 28 H 121/45 92 L 12/29/21 21:47 28 H 92 L 12/29/21 21:45 96 20 114/49 91 L 12/29/21 21:32 96 16 111/53 90 L 12/29/21 21:08 100 12/29/21 21:03 92 16 129/76 93 L 12/29/21 20:45 91 16 189/100 93 L 12/29/21 20:40 100 12/29/21 20:28 89 14 210/116 89 L 12/29/21 20:15 146 H 14 148/106 89 L Intake and Output 12/29/21 12/30/21 12/30/21 22:59 06:59 14:59 Intake Total 17.431 918.826 100 Output Total 510 100 Balance 17.431 408.826 0 Intake: IV 600 100 Sodium Chloride 0.9% 1, 600 100 000 ml @ 100 mls/hr IV . Q10H [facility] Rx#:[id number] Intake, IV Titration 17.431 318.826 Amount propofoL 1,000 mg In 17.431 318.826 Empty Bag 1 bag @ 15 MCG/ KG/MIN 12.859 mls/hr IV . Q7H47M [facility] Rx#:[id number] Output: Urine 510 100 Other: Voiding Method Indwelling Catheter Weight 142.882 kg Patient is a middle aged male, who earlier seen was having continuous myoclonic twitching of his body. After patient received Nimbex and Versed drip, the myoclonic activity dissipated. Patient is comatose, GCS of 3. Patient is on mechanical ventilation. Patient is moderately obese. On cranial examination, pupils are 3 mm, not clearly reacting, due to use of Nimbex. Oculocephalics are absent. Patient is intubated. Patient does not withdraw to painful stimuli, partly due to being on Nimbex. No seizure-like activity noted. Reflexes are absent. Sensory, cerebellar functions, gait cannot be tested. On general examination, there is no carotid bruit or murmur, S1-S2 audible. Abdomen is soft nontender. Chest no crackles or wheezes. Peripheral pulses are present. No edema. Results - Laboratory Findings CBC and BMP: 12/30/21 06:45 12/30/21 06:45 Abnormal Lab Findings: Abnormal Labs 12/29/21 12/29/21 12/29/21 20:27 20:27 20:55 WBC Neutrophils # Monocytes # APTT 20.5 L D-Dimer 2.05 H ABG pH ABG pCO2 ABG pO2 ABG HCO3 ABG Total CO2 ABG O2 Saturation Potassium 3.0 L Carbon Dioxide 15 L BUN 8 L Creatinine 1.56 H Glucose 260 H POC Glucose (mg/dL) Plasma Lactic Acid Jhony Calcium 8.3 L Magnesium 3.1 H AST 159 H ALT 86 H Urine Protein 3+ H Urine Glucose (UA) 3+ H Urine Ketones Trace H Urine Blood Large H Urine RBC 121 H Urine WBC 6 H Amorphous Sediment Rare H Urine Bacteria Rare H Hyaline Casts 18 H Urine Mucus Rare H Serum Alcohol 331 H* 12/29/21 12/29/21 12/30/21 21:14 21:53 00:24 WBC Neutrophils # Monocytes # APTT D-Dimer ABG pH 7.08 L* ABG pCO2 54 H ABG pO2 ABG HCO3 16 L ABG Total CO2 18 L ABG O2 Saturation 93.3 L Potassium Carbon Dioxide BUN Creatinine Glucose POC Glucose (mg/dL) Plasma Lactic Acid Jhony 6.6 H* 2.7 H* Calcium Magnesium AST ALT Urine Protein Urine Glucose (UA) Urine Ketones Urine Blood Urine RBC Urine WBC Amorphous Sediment Urine Bacteria Hyaline Casts Urine Mucus Serum Alcohol 12/30/21 12/30/21 12/30/21 00:56 06:11 06:45 WBC 16.7 H Neutrophils # 14.0 H Monocytes # 1.4 H APTT D-Dimer ABG pH 7.15 L* ABG pCO2 65 H ABG pO2 44 L* ABG HCO3 ABG Total CO2 25 H ABG O2 Saturation 71.4 L Potassium Carbon Dioxide BUN Creatinine Glucose POC Glucose (mg/dL) 101 H Plasma Lactic Acid Jhony Calcium Magnesium AST ALT Urine Protein Urine Glucose (UA) Urine Ketones Urine Blood Urine RBC Urine WBC Amorphous Sediment Urine Bacteria Hyaline Casts Urine Mucus Serum Alcohol Assessment and Plan Assessment: * Cardiac arrest with prolonged downtime of 35 minutes. Patient did not receive any CPR during the first 13 minutes post cardiac arrest prior to arrival of EMS. Patient showing evidence of significant anoxic encephalopathy. Patient's GCS is 3. CT head showed evidence of mild generalized cerebral edema, with loss of catherine-white differentiation. Etiology of cardiac arrest uncertain at this time. * Generalized status epilepticus, likely due to anoxic encephalopathy. * Alcohol intoxication * History of chronic alcoholism. * Hypertension * Obesity. Plan: * EEG was performed, which was abnormal due to bursts suppressed pattern. The bursts consist of high amplitude generalized spike/polyspike's followed by generalized suppression. These spikes were present at times every second, sometimes continuous for several seconds. This background slowing and intermittent suppressed pattern also lasting for one second to several seconds. Overall, this EEG is consistent with generalized status epilepticus, with severe encephalopathy. Clinical correlation and follow-up EEG are recommended. Recommend continuous EEG monitoring. * Patient will be maintained on Depakote, Dilantin and Keppra. * Patient has been started on Versed drip. At present patient is running Versed at 4 mg per hour. Also on Nimbex 1.5. * Patient to be transferred to [facility] for continuous EEG monitoring. * Watch for alcohol withdrawal. Start thiamine IV. * ICU staff Dr. Orantes already discussed case with patient's mother. Prognosis is very guarded to poor for meaningful recovery. Addendum 1:45 PM: Patient pending transfer to higher level of care. No bed available. Patient clinically not showing any signs of seizure activity. Patient is hemodynamically stable. However patient is on Versed drip at 4 mg/hr, and Nimbex at 1.5. Cannot rule out underlying persistent status epilepticus. We will repeat EEG to assess for subclinical status epilepticus, in order to taper down the antiepileptic medication. If the EEG does not show any epileptiform activity, we will stop Nimbex. Time with Patient: Greater than 30
[2021-12-30 14:47] LABS: Phenytoin (Dilantin) 3.1 ug/mL
[2021-12-30 14:55] LABS: Valproic Acid (Depakene) 127.7 ug/mL
[2021-12-30 15:11] VITALS: PULSE 96; RESP 28
[2021-12-30] MEDS ORDERED: VANCOMYCIN 2,000 MG in SODIUM CHLORIDE 0.9% 500 ML 500 ML IVPB SCH (18:00)
[2021-12-30] MEDS ORDERED: VALPROATE SODIUM 750 MG in SODIUM CHLORIDE 0.9% 50 ML IVPB SCH (20:00)
== END 2021-12-30 16:15 | disposition short-term general hospital (02) | DRG 871 ==
LOC: EC 20:10 → 2SICU 23:41
PROVIDERS: ADMIT Internal Medicine; ATTEND Internal Medicine
PROC: 5A1935Z Respiratory Ventilation, Less than 24 Consecutive Hours (ICD-10-PCS; principal; 2021-12-29)
PROC: 0BH17EZ Insertion of Endotracheal Airway into Trachea, Via Natural or Artificial Opening (ICD-10-PCS; 2021-12-29)
PROC: 0D9670Z Drainage of Stomach with Drainage Device, Via Natural or Artificial Opening (ICD-10-PCS; 2021-12-29)
PROC: 3E043XZ Introduction of Vasopressor into Central Vein, Percutaneous Approach (ICD-10-PCS; 2021-12-30)
PROC: 02HV33Z Insertion of Infusion Device into Superior Vena Cava, Percutaneous Approach (ICD-10-PCS; 2021-12-30)
PROC: 03HY32Z Insertion of Monitoring Device into Upper Artery, Percutaneous Approach (ICD-10-PCS; 2021-12-30)
PROC: 4A133B1 Monitoring of Arterial Pressure, Peripheral, Percutaneous Approach (ICD-10-PCS; 2021-12-30)
PROC: 4A133J1 Monitoring of Arterial Pulse, Peripheral, Percutaneous Approach (ICD-10-PCS; 2021-12-30)
DX: A41.9 Sepsis, unspecified organism (principal); I46.9 Cardiac arrest, cause unspecified; G93.6 Cerebral edema; J96.01 Acute respiratory failure with hypoxia; J69.0 Pneumonitis due to inhalation of food and vomit; J90 Pleural effusion, not elsewhere classified; G93.1 Anoxic brain damage, not elsewhere classified; N17.9 Acute kidney failure, unspecified; I47.2 Ventricular tachycardia; E87.4 Mixed disorder of acid-base balance; J98.11 Atelectasis; Z68.41 Body mass index [BMI] 40.0-44.9, adult; G40.901 Epilepsy, unspecified, not intractable, with status epilepticus; E66.01 Morbid (severe) obesity due to excess calories; R65.20 Severe sepsis without septic shock; F10.229 Alcohol dependence with intoxication, unspecified; Z20.822 Contact with and (suspected) exposure to COVID-19; J45.909 Unspecified asthma, uncomplicated; E87.6 Hypokalemia; E78.5 Hyperlipidemia, unspecified; I10 Essential (primary) hypertension; F32.A Depression, unspecified; F43.10 Post-traumatic stress disorder, unspecified; G89.29 Other chronic pain; M54.2 Cervicalgia; M54.9 Dorsalgia, unspecified; R74.01 Elevation of levels of liver transaminase levels; Y90.8 Blood alcohol level of 240 mg/100 ml or more; Z78.1 Physical restraint status; Z98.1 Arthrodesis status; Z98.818 Other dental procedure status; Z87.891 Personal history of nicotine dependence; Z88.1 Allergy status to other antibiotic agents; Z88.0 Allergy status to penicillin; Z88.8 Allergy status to other drugs, medicaments and biological substances; H57.04 Mydriasis; T88.4XXA Failed or difficult intubation, initial encounter; R31.9 Hematuria, unspecified; R80.9 Proteinuria, unspecified
CPT/HCPCS: 31500; 36415; 36600; 70450; 71045; 71275; 80053; 80143; 80164; 80177; 80179; 80185; 80306; 80320; 81001; 82805; 83605; 83690; 83735; 83880; 84484; 85025; 85379; 85610; 85730; 87040; 87070; 87205; 87502; 87635; 93005; 93306; 94002; 94003; 94640; 95822; 96365; 96366; 96367; 96372; 96375; 99285